=== PATIENT | female | born 1935 | race Caucasian/White ===

== ENCOUNTER → 2018-01-29 11:16 | Outpatient (CLI) | payer MEDICARE, OTHER, SELFPAY ==
--- NOTE | 2018-01-29 | DI.CT.S_ITS ---
PROCEDURE: CT ANGIO CHEST PE PROTOCOL INDICATIONS: CHEST PAIN TECHNIQUE: After the administration of intravenous contrast, 2 mm thick sections acquired from the pulmonary apices to the posterior costophrenic angles. 3-dimensional maximum intensity projection (MIP) coronal and sagittal reformats were then acquired through the thorax. For radiation dose reduction, the following was used: automated exposure control, adjustment of mA and/or kV according to patient size. COMPARISON: None. FINDINGS: Image quality: Excellent. Pulmonary arteries: Pulmonary arteries are normal in size, and demonstrate no intraluminal filling defects to suggest central pulmonary embolism. Lungs and pleura: Lungs are abnormal with a left lower lobe pneumonia pattern, and a very small left lung base pleural effusion.. No pleural effusions or pneumothorax. Central and peripheral airways are patent. Mediastinum: Heart size is normal, without pericardial effusion. No mediastinal or hilar adenopathy but there is mild prominence on the left at the lower hilum of several small nodes likely reactive in this clinical circumstance. Thoracic aorta is normal in caliber and enhancement. Esophagus is normal in caliber, without hiatal hernia. Bones and chest wall: No suspicious bony lesions. Ribs and thoracic spine appear intact throughout. Bilateral breast implants without evidence of implant rupture Thyroid gland demonstrates asymmetric enlargement of the left thyroid gland by presumably an isodense nodule, with estimated dimensions of this mass at approximately 2.5 cm.. No axillary or supraclavicular adenopathy. Abdomen: Visualized upper abdominal solid organs appear normal in the early arterial phase of enhancement. IMPRESSION: No pulmonary embolus seen. Left lower lobe pneumonia with small associated pleural effusion at the left lung base. Asymmetric enlargement of the left thyroid lobe by an estimated 2.5 cm thyroid nodule on the left. Followup by thyroid ultrasound and thyroid nodule biopsy likely is warranted. These findings were discussed in detail Dr. Philippe abdomen staff. Dictated by: Narciso Diehl M.D. on 01/29/2018 at 13:13 Approved by: Narciso Diehl M.D. on 01/29/2018 at 13:16
[2018-01-29 11:48] LABS: Estimated Glomerular Filt Rate > 60.0 mL/min (>60)
== END ==
PROVIDERS: Family Provider Family Medicine; PCP Family Medicine; Visit Provider Family Medicine
DX: R07.81 Pleurodynia (principal); R07.89 Other chest pain; E04.1 Nontoxic single thyroid nodule; J18.9 Pneumonia, unspecified organism
CPT/HCPCS: 36415; 71275; 82565; 84520; Q9967

== ENCOUNTER → 2018-02-26 11:31 | Outpatient (CLI) | payer MEDICARE, OTHER, SELFPAY ==
--- NOTE | 2018-02-26 | DI.RAD.S_ITS ---
PROCEDURE: XR CHEST 2V INDICATIONS: PNEUMONIA TECHNIQUE: 2 views of the chest were acquired. COMPARISON: [facility], , CHEST 1 VIEW, 05/24/2015, 14:00. FINDINGS: Surgical changes and devices: None. Lungs and pleura: No pleural effusions or pneumothorax. Lungs are clear. Mediastinum: Mediastinal contours are normal. Heart size is normal. Aortic calcifications and mild tortuosity. Bones and chest wall: No suspicious bony abnormalities. Thoracic scoliosis and spondylosis. Soft tissues appear unremarkable. IMPRESSION: No acute cardiopulmonary abnormality Dictated by: Jama Belle M.D. on 02/26/2018 at 11:49 Approved by: Jama Belle M.D. on 02/26/2018 at 11:51
== END ==
PROVIDERS: Family Provider Family Medicine; PCP Family Medicine; Visit Provider Family Medicine
DX: J18.9 Pneumonia, unspecified organism (principal)
CPT/HCPCS: 71046

== ENCOUNTER → 2018-03-31 08:44 | Outpatient (CLI) | payer MEDICARE, OTHER, SELFPAY ==
--- NOTE | 2018-03-31 | DI.RAD.S_ITS ---
PROCEDURE: XR HAND LT MIN 3V INDICATIONS: LEFT THUMB AND LEFT HAND PAIN TECHNIQUE: 3 views of the hand(s) acquired. COMPARISON: None. FINDINGS: Bones: Intra-articular mildly displaced fracture through the proximal left first metacarpal. There is a 3 mm area of ossification at the proximal radial aspect of the first MCP joint which may represent a small avulsion fracture or vascular calcification. First CMC joint degenerative change. Soft tissues: No suspicious soft tissue calcifications. IMPRESSION: Proximal left first metacarpal fracture. Soft tissue ossification may represent an avulsion fracture with no identified donor site. Dictated by: Chinmay Butcher M.D. on 03/31/2018 at 9:06 Approved by: Chinmay Butcher M.D. on 03/31/2018 at 9:09
== END ==
PROVIDERS: Family Provider Family Medicine; PCP Family Medicine; Visit Provider Family Medicine
DX: S62.292A Other fracture of first metacarpal bone, left hand, initial encounter for closed fracture (principal); M79.642 Pain in left hand
CPT/HCPCS: 73130

== ENCOUNTER → 2018-12-29 09:33 | Outpatient (CLI) | payer MEDICARE, OTHER, SELFPAY ==
--- NOTE | 2018-12-29 | DI.MRI.S_ITS ---
PROCEDURE: MR HIP LT WO CON INDICATIONS: PRESENCE OF LEFT ARTIFICIAL HIP JOINT TECHNIQUE: Noncontrast coronal T1 spin echo and STIR through the bony pelvis. Coronal and axial T2 fast spin echo with fat saturation, sagittal T1 spin echo, and oblique axial T2 fast spin echo with fat saturation through the hip. COMPARISON: [facility], , [id number] W PEL IF PERFORMED, 07/30/2017, 10:15. FINDINGS: Image quality: Excellent. Bones and joints: Bone marrow of the pelvic ring and proximal femurs show normal signal throughout. There is a mild degree of metal artifact from the bilateral hip arthroplasties immediately adjacent but this includes only the peripheral margin of the arthroplasties present. No intraosseous lesions or fractures. The visualized lower lumbar spine appears normally aligned but there is a moderate degree of degenerative osteoarthritis and disc disease incidentally noted in the small portion of the spine included on this study. Tendons and ligaments: The gluteus medius and minimus tendons appear intact, without associated muscle atrophy. The nearby proximal iliotibial band also appears intact. The iliopsoas tendon appears intact, without adjacent bursal fluid collections or evidence for impingement syndrome. The origin of the hamstring tendon is intact at the ischial tuberosity, as well as the associated sacrotuberous ligament. The straight and reflected heads of the rectus femoris muscle origin appear intact, as well as the conjoint tendon. The ligamentum teres appears intact where visualized. Labrum and cartilage: Not seen in the setting of bilateral hip arthroplasties. Soft tissues: Visualized muscles demonstrate normal bulk and internal signal. Quadratus femoris muscle demonstrates no internal edema to suggest ischiofemoral impingement. The proximal sciatic neurovascular bundle appears normal adjacent to the hamstring tendons. No free pelvic fluid. Bladder wall thickness is normal. Genitourinary structures and bowel loops appear normal where visualized. 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 The operative area of concern is the left hip. No marrow edema is seen, no soft tissue inflammation along the borders of the arthroplasty or nearby is found. Mild to moderate degenerative disc disease and facet osteoarthritis is noted at the lower lumbosacral spine, only a small portion which is included on the study. Overall, therefore, a source of postoperative left hip pain is not seen. Dictated by: Narciso Diehl M.D. on 12/29/2018 at 12:59 Approved by: Narciso Diehl M.D. on 12/29/2018 at 13:03
== END ==
PROVIDERS: PCP Family Medicine; Visit Provider Orthopaedic Surgery
DX: M25.552 Pain in left hip (principal); Z96.643 Presence of artificial hip joint, bilateral; M51.37 Other intervertebral disc degeneration, lumbosacral region; M47.817 Spondylosis without myelopathy or radiculopathy, lumbosacral region
CPT/HCPCS: 73721

== ENCOUNTER 2019-09-17 12:47 | Outpatient (CLI) | payer MEDICARE, OTHER, SELFPAY | END 2019-10-01 13:36 | disposition home or self-care (01) | LOC: PHYS 12:49 | PROVIDERS: PCP Family Medicine; Visit Provider Physical Medicine & Rehabilitation | DX: M25.552 Pain in left hip (principal); G89.29 Other chronic pain; Z96.642 Presence of left artificial hip joint | CPT/HCPCS: 95886; 95909 ==

== ENCOUNTER → 2019-10-09 12:54 | Outpatient (CLI) | payer MEDICARE, OTHER, SELFPAY ==
--- NOTE | 2019-10-09 12:56 | DI.MRI.S_ITS ---
PROCEDURE: MR LUMBAR SPINE WO CON INDICATIONS: L4/5 radic TECHNIQUE: Noncontrast sagittal T1 spin echo and T2 fast echo, sagittal STIR, axial T1 and T2 fast spin echo through the lumbar spine. In cases with scoliosis, additional coronal T2 fast spin echo may be performed. COMPARISON: None. FINDINGS: Image quality: Excellent. Alignment and Curvature: No plain films are available for comparison, for numbering purposes. Thus, for the purposes of this examination, 5 lumbar type vertebral bodies will be presumed, as denoted on the montage panel. This should be confirmed and correlated with plain films, prior to any lumbar spinal intervention. There is mild, grade 1 anterolisthesis of L5 on S1. Mild grade 1 retrolisthesis of T11 on T12 and T12 on L1. Mild diffuse lumbar curvature of the mid lumbar spine. Loss of normal lumbar lordosis. Bone Marrow: Marrow signal is diffusely heterogeneous. Moderate reactive signal within the endplates adjacent to the L1-L2 intervertebral disc. Mild reactive signal adjacent to the remaining endplates of the lumbar and lower thoracic spine. No acute vertebral body compression fractures. Spinal Cord: Conus medullaris terminates at the L2-L3 disc space level. Visualized cord demonstrates normal signal and size. Paraspinous Soft Tissues: No paravertebral masses. 47 mm diameter left superior pole renal cyst. L1-L2: Severe disc height loss and desiccation. Mild diffuse disc bulge. Mild facet and ligamentum flavum upper tibia. Mild canal stenosis. Moderate left and mild right foraminal stenosis. L2-L3: Severe disc height loss and desiccation. Mild diffuse disc bulge/osteophyte. Mild bilateral facet and ligamentum flavum hypertrophy. Mild canal stenosis. Mild left greater than right foraminal stenosis. L3-L4: Severe disc loss and desiccation. Mild diffuse disc bulge. Mild bilateral facet and ligamentum flavum hypertrophy. Mild canal stenosis. Moderate right and mild left foraminal stenosis. L4-L5: Severe disc height loss and desiccation. Moderate diffuse disc bulge. Mild facet and ligamentum flavum hypertrophy. Mild canal stenosis. Moderate subarticular foraminal stenosis bilaterally. L5-S1: Moderate disc height loss and desiccation. Mild diffuse disc bulge. Mild bilateral facet hypertrophy. Mild ligamentum hypertrophy bilaterally. Mild canal stenosis. Moderate subarticular foraminal stenosis bilaterally. IMPRESSION: 1. 5 lumbar type vertebral bodies were presumed for the current report. Plain films of the lumbar spine are recommended for confirmation, prior to any lumbar spinal intervention. 2. Multilevel degenerative disc and facet disease, as well as ligamentum flavum hypertrophy and epidural lipomatosis. 3. Mild multilevel canal stenoses. 4. Multilevel foraminal stenoses, worst at L1-L2, L3-L4, L4-L5, and L5-S1, where there are moderate foraminal stenoses as described above Approved by: Nickolas Frances M.D. on 10/09/2019 at 15:17 .
== END ==
PROVIDERS: PCP Family Medicine; Visit Provider Physical Medicine & Rehabilitation
DX: M51.16 Intervertebral disc disorders with radiculopathy, lumbar region (principal); M51.17 Intervertebral disc disorders with radiculopathy, lumbosacral region; M48.061 Spinal stenosis, lumbar region without neurogenic claudication; M48.07 Spinal stenosis, lumbosacral region; E88.2 Lipomatosis, not elsewhere classified; M43.17 Spondylolisthesis, lumbosacral region; Z96.641 Presence of right artificial hip joint
CPT/HCPCS: 72148

== ENCOUNTER 2019-11-05 10:55 | Outpatient (CLI) | payer MEDICARE, OTHER, SELFPAY ==
[2019-11-05] VITALS (8 sets, daily range): BP systolic 116–142; BP diastolic 59–88; PULSE 68–75; RESP 14–16; TEMP 36.6; O2SAT 95–100
--- NOTE | 2019-11-05 10:56 | DI.RAD.S_ITS ---
PROCEDURE: PAIN L/S TRANSFORAMINAL INJECT INDICATIONS: RADICULOPATHY FINDINGS: Fluoroscopic spot filming was performed to verify placement of spinal needles at the L4-L5 level(s), as labeled on the films. Appropriate location(s) of the needle tip(s) was confirmed by injection of iodinated contrast. Dictated by: Kenneth Leo M.D. on 11/05/2019 at 13:23 Approved by: Kenneth Leo M.D. on 11/05/2019 at 13:27
[2019-11-05] MEDS: MIDAZOLAM 5 MG/5 ML VIAL IV (11:46)
[2019-11-05] MEDS: BUPIVACAINE 0.25% (PF) VIAL 2 ML INJ (11:50)
[2019-11-05] MEDS: DEXAMETHASONE 10 MG/ML VIAL 20 MG INJ (11:50)
[2019-11-05] MEDS: IOPAMIDOL 15 ML VIAL 3 ML INJ (11:50)
--- NOTE | 2019-11-05 11:55 | PC.NURSE ---
ASSISTING PT OFF TABLE AND TRANSPORTING TO POST PROC AREA IN STABLE CONDITION. PASSING RN CARE OF PT OFF TO AB Boggs RN.
--- NOTE | 2019-11-05 12:00 | P.PCN_ITS ---
Procedures Date/Time Date of procedure: 11/05/19 Time of procedure: 12:00 General Procedure description: PREOP DIAGNOSIS 1. FORMAINAL STENOSIS WITH LE SYMPTOMS POST OP DIAGNOSIS 1. FORMAINAL STENOSIS WITH LE SYMPTOMS PROCEDURES 1. FLUOROSCOPICALLY GUIDED CONTRAST CONTROLLED TRANSFORAMINAL EPIDURAL STEROID INJECTION - LEFT L4/5 PHYSICIAN: Michael Vieira DO INDICATIONS: Bri is referred by for treatment of Foraminal Stenosis with Left LE Symptoms FINDINGS Foraminal Nerve Root Compression secondary to disc disease and facet hypertrophy DESCRIPTION OF PROCEDURE: Following review of allergy and review of potential side effects and complications, including, but not necessarily limited to, infection, allergic reaction, local tissue breakdown, stroke, temporary or permanent nerve injury, paralysis, and possible , the patient indicated that the patient understood and agreed to proceed. An informed consent document was signed by the patient, witnessed by a nurse, and placed in the patient's chart. Additionally, other treatment options including medications, modalities, and physical therapy were reviewed with the patient. After review of previous anaesthesic history and IV conscious sedation the heidy ent was deemed safe to proceed with todays procedure with IV conscious sedation as ASA class II designation. Safety time-out was performed to confirm patient ID, procedure to be performed and site of procedure. IV sedation was accomplished with 2mg of Versed administered by the RN after DO order, titrated to patient comfort during the course of the procedure while the patient remained responsive to all verbal commands In the prone position following sterile prep and drape of the lumbar region, the left L4/5 posterior neuroforamen was identified fluoroscopically. The skin was anesthetized via a 25-gauge 1.5-inch needle with 1% lidocaine solution. At this point, a 25-gauge 3.5-inch spinal needle was atraumatically introduced and advanced under fluoroscopic guidance through the posterior left L4/5 neuroforamen to approximately the anterior aspect of the canal. Depth was confirmed on lateral view. Following negative aspiration, injection of approximately 1.5 cc of Isovue 200 under live fluoroscopy in the AP view confirmed excellent flow along the nerve root, into the epidural space without vascular or intrathecal uptake observed Radiological data, including multiple fluoroscopic views of the lumbosacral spine, reveal a spinal needle at the left L4/5 posterior neuroforamen. Subsequent views show flow of contrast material flowing superiorly and inferiorly along the nerve root confirming epidural flow. Subsequently, a test dose of 1.5 cc of 1% lidocaine solution was administered and patient was observed for two minutes for signs or symptoms of complications, including abdominal pain, shortness of breath, bilateral upper or lower extremity weakness, nausea and vomiting, prior to steroid injection. At this point, a total of 3cc or 20mg of dexamethasone and 6mg of betamethasone was injected without incident. The procedure tolerated the procedure well without signs or symptoms of complications prior to transfer to the recovery area continued monitoring withou t incident. The patient was then transferred to the recovery area where they were observed for an appropriate time after the injection. The patient reported a VAS score of 5 prior to the procedure and a post- procedure VAS of 0. Total Fluoroscopy Time: 7 seconds Total Conscious Sedation Time: 24min POST OP INSTRUCTIONS The patient was provided a Pain Log to continue to record their response to the target-specific procedure prior to follow-up visit with their referring physician. Additionally, specific post-injection care instructions and a contact number to our office were provided if concerns arise regarding possible complications associated with the procedure are suspected. Michael Vieira DO Complications: none
--- NOTE | 2019-11-05 12:14 | PC.NURSE ---
Patient arrived via w/c accompanied by Rose at 1205 from procedure, standby assist to chair without problems, given water and cookies, denies pain
[2019-11-05] MEDS: BETAMETHASONE 30 MG/5 ML MDV 6 MG INJ (15:43)
--- NOTE | 2019-11-05 15:44 | PC.NURSE ---
ALL MEDS SCANNED LATE DUE TO PROCEDURE BEING DONE BEFORE MEDS ORDERED BY DR NEGRETE. 2MG VERSED ADMINISTERED BY THIS RN AT 1146. ALL OTHER MEDICATIONS PREPARED AND ADMINISTERED BY DR NEGRETE. NO ADVERSE REACTIONS NOTED.
== END 2019-11-05 12:30 | disposition home or self-care (01) ==
LOC: RAD 10:56
PROVIDERS: PCP Family Medicine; Referring Provider Family Medicine; Visit Provider Physical Medicine & Rehabilitation
DX: M48.061 Spinal stenosis, lumbar region without neurogenic claudication (principal); M51.16 Intervertebral disc disorders with radiculopathy, lumbar region
CPT/HCPCS: 64483; 99152; J0702; J1100; J2250; J3010

== ENCOUNTER 2021-01-07 20:15 | Observation (INO) | payer MEDICARE, OTHER, SELFPAY ==
[2021-01-07] VITALS (7 sets, daily range): BP systolic 105–174; BP diastolic 60–85; PULSE 76–82; RESP 18–24; TEMP 36.5; O2SAT 97–98; BMI 24.0
--- NOTE | 2021-01-07 20:17 | DI.CT.S_ITS ---
PROCEDURE: CT STROKE INDICATIONS: aphasia TECHNIQUE: Noncontrast 4.5 mm thick angled axial sections acquired from the foramen magnum to the vertex, with coronal reformats. For radiation dose reduction, the following was used: automated exposure control, adjustment of mA and/or kV according to patient size. COMPARISON: None. FINDINGS: Image quality: Excellent. CSF spaces: Basal cisterns are patent. No extra-axial fluid collections. The ventricles are symmetric in size and shape. Brain: No intracranial bleeds or masses. There is cerebral volume loss for age, with resultant ventricular and sulcal prominence. There are periventricular and deep white matter chronic small vessel ischemic changes, relatively prominent. 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 There are basal gangliar calcifications bilaterally symmetric. There is intracranial internal carotid artery atherosclerosis. Skull and face: Calvarium and visualized facial bones appear intact, without suspicious lesions. Sinuses: Visualized sinuses and mastoids are clear. IMPRESSION: No definite contraindication to tPA administration from this study. Prominent microvascular atherosclerotic change in the deep white matter of each hemisphere is present, also concordant with advanced age. Basal gangliar calcification appears dystrophic. Two small sub insular cortex deep white matter lacunar infarctions incidentally noted. Findings immediately called to and discussed with the emergency room physician caring for the patient at 8:30 p.m. This study fulfills neurological imaging criteria for inclusion or exclusion of acute stroke therapies based on available published neurological guidelines. Dictated by: Narciso Diehl M.D. on 01/07/2021 at 20:28 Approved by: Narciso Diehl M.D. on 01/07/2021 at 20:32
--- NOTE | 2021-01-07 20:17 | DI.RAD.S_ITS ---
PROCEDURE: XR CHEST 1V INDICATIONS: Possible stroke TECHNIQUE: One view of the chest was acquired. COMPARISON: [facility], , XR CHEST 2V, 02/26/2018, 11:15. [facility], , CHEST 1 VIEW, 05/24/2015, 14:00. FINDINGS: Surgical changes and devices: None. Lungs and pleura: Lungs are clear. No pleural effusions or pneumothorax. Mediastinum: Mediastinal contours appear normal. Heart size is normal. Bones and chest wall: No suspicious bony lesions. Overlying soft tissues appear unremarkable. IMPRESSION: Reduced inspiratory volume, no definite acute disease. Dictated by: Narciso Diehl M.D. on 01/07/2021 at 21:08 Approved by: Narciso Diehl M.D. on 01/07/2021 at 21:08
--- NOTE | 2021-01-07 20:18 | DI.CT.S_ITS ---
PROCEDURE: CT ANGIO HEAD AND NECK INDICATIONS: aphasia TECHNIQUE: After the administration of intravenous contrast, 1 mm thick sections acquired from the aortic arch through the [place]. Post-contrast 4.5 mm thick sections then re-acquired from the foramen magnum to the vertex. 3-dimensional dscjzhl-bmcjqmmau-fqfwxpkoan (MIP) and/or volume rendering reformats were acquired of the central intracranial vasculature and neck separately. COMPARISON: None. FINDINGS: Image quality: Excellent. BRAIN: CSF spaces: Ventricles are mildly enlarged in size and shape as expected for advanced age and moderately severe microvascular atherosclerotic change in the deep white matter of each hemisphere. Basal cisterns are patent. No extra-axial fluid collections. Brain: No midline shift. No intracranial bleeds or masses. [place]-white matter interface appears intact. Skull and face: Calvarium and facial bones appear intact, without suspicious lesions. Orbits appear normal. Sinuses: Sinuses and mastoids are clear. HEAD CT ANGIOGRAPHY: Anterior circulation: Intracranial internal carotid arteries are normal in size and flow. The flow within the paired anterior cerebral arteries is normal and symmetric. The flow within the middle cerebral arteries is normal and symmetric. The anterior communicating artery is seen. No aneurysms are seen. Posterior circulation: Visualized portions of the vertebral arteries demonstrate normal caliber, and join to form a normal appearing basilar artery. Flow within the posterior cerebral arteries is normal and symmetric. No aneurysms are seen. NECK CT ANGIOGRAPHY: Carotid system: The great vessels demonstrate a conventional anatomy as they arise from the aortic arch. The origins of the common carotid arteries appear patent. The common carotid arteries demonstrate normal caliber and courses. The bifurcation regions are both widely patent. The internal carotid arteries demonstrate normal calibers and courses. Posterior circulation: The origins of the vertebral arteries both appear widely patent. The more superior extracranial portions of both vertebral arteries also demonstrate normal courses and calibers. They join to form a normal appearing basilar artery. Soft tissues: Visualized neck soft tissues demonstrate no suspicious abnormalities. Note is made of what appears to be a left-sided thyroid nodule, measuring up to 1.5 x 1.7 cm. Bones: No suspicious bony lesions. Visualized cervical spine appears normally aligned. IMPRESSION: Incidental note is made of a moderate-sized left thyroid nodule measuring 1.5 x 1.7 cm. There is no sign of embolic disease or arterial thrombosis within the cervical arterial structures and the intracranial arterial arcade. Through the brain parenchyma no mass is found. Moderate microvascular atherosclerotic change is present, with mild to moderate brain parenchymal atrophy. A source of current symptomatology is not found. Any quantitative measurements of stenosis were performed using NASCET criteria. Dictated by: Narciso Diehl M.D. on 01/07/2021 at 21:45 Approved by: Narciso Diehl M.D. on 01/07/2021 at 21:48
--- NOTE | 2021-01-07 20:52 | ED.NEUROSD ---
HPI - Neuro Symptoms/Deficit General Chief Complaint: Neuro Symptoms/Deficit Stated Complaint: Possible Stroke Time Seen by Provider: 01/07/21 20:28 Source: patient, family and EMS Limitations: no limitations History of Present Illness HPI Narrative: Patient is an 85-year-old female who presents as a code stroke with last known well at 1830.. She was on the phone with her daughter when she was suddenly unable and to come up with the right words talking gibberish. 911 was called however she did not arrive to this facility in till 2029. Symptoms seem to be waxing and waning according to medics. She has no weakness facial droop or loss of vision. No prior history of stroke but is taking aspirin daily. Related Data Home Medications Medication Instructions Recorded Confirmed VITAMIN C - 1,000 mg PO #0 08/03/06 01/18/20 (VITAMIN C) [CALCIUM WITH D] Q DAY #0 08/03/06 01/18/20 [ISTALOL] #0 08/03/06 01/18/20 [MOVE FREE WITH GLUCO] #0 08/03/06 01/18/20 ascorbate calcium (vitamin C) 500 500 mg PO DAILY 08/17/19 01/07/21 mg tablet aspirin 81 mg chewable tablet 81 mg PO DAILY 08/17/19 01/07/21 atorvastatin 80 mg tablet 80 mg PO DAILY 08/17/19 01/07/21 calcium carbonate 600 mg calcium 600 mg PO DAILY 08/17/19 01/07/21 (1,500 mg) tablet cholecalciferol (vitamin D3) 25 2,000 unit PO DAILY cap 08/17/19 01/07/21 mcg (1,000 unit) capsule esomeprazole magnesium 40 mg 40 mg PO DAILY 08/17/19 01/07/21 capsule,delayed release folic acid 400 mcg tablet 0.4 mg PO DAILY 08/17/19 01/07/21 glucosamine HCl 500 mg tablet 1,000 mg PO DAILY tab 08/17/19 01/07/21 latanoprost 0.005 % eye drops 1 drp EYE-BOTH BEDTIME 08/17/19 01/07/21 mecobalamin (vitamin B12) 1,000 1,000 mcg SL DAILY 08/17/19 01/07/21 mcg disintegrating tablet,sublingual meloxicam 15 mg tablet 15 mg PO DAILY 08/17/19 01/07/21 metoprolol tartrate 50 mg tablet 50 mg PO DAILY 08/17/19 01/07/21 multivitamin 1 tab PO DAILY 08/17/19 01/07/21 nitroglycerin 0.4 mg sublingual 0.4 mg SL Q5M PRN 08/17/19 01/07/21 tablet omega-3 fatty acids 1,000 mg 1,000 mg PO DAILY 08/17/19 01/07/21 capsule pyridoxine (vitamin B6) 100 mg 100 mg PO DAILY tab 08/17/19 01/07/21 tablet Allergies Allergy/AdvReac Type Severity Reaction Status Date / Time No Known Allergies Allergy Unknown Verified 01/07/21 21:34 [NO KNOWN ALLERGIES] Review of Systems Review of Systems Narrative: GENERAL: Denies chills, fatigue, malaise, fever, sweats, travel HEENT: Denies sinus pain, ear pain, sore throat, difficulty swallowing, neck pain RESPIRATORY: Denies dyspnea, cough, wheezing, hemoptysis, sputum. CARDIOVASCULAR: Denies chest pain, palpitations, orthopnea, edema GASTROINTESTINAL: Denies nausea, vomiting, abdominal pain, diarrhea, constipation, melena. : Denies dysuria, frequency, incontinence, hematuria, urinary retention, flank pain. MUSCULOSKELETAL: Denies weakness, joint pain, or bony pain SKIN: No rash, no erythema, no pruritus NEUROLOGIC: See HPI PSYCHIATRIC: No concerning psychosocial issues. 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 HEENT: Head atraumatic,EOMI, pupils reactive, face symmetric, moist mucous membranes CARDIOVASCULAR: Regular rate and rhythm without murmurs, rubs or gallops. RESPIRATORY: Breath sounds equal bilaterally, no wheezes rales or rhonchi. ABDOMEN: Soft, nontender. Normoactive bowel sounds all 4 quadrants. No guarding or rebound. EXTREMITIES: Normal range of motion, no clubbing or edema. Neurovascularly intact NEUROLOGICAL: Alert and oriented x4.Normal gait and speech. Cranial nerves II through XII grossly intact. Good [id number], good aija-pl-yngf, strength equal bilaterally, mild dysarthria or aphasia, sensation in tact to soft touch bilaterally, no visual changes, no facial droop SKIN: Warm, dry, no laceration, no petechiae, no rashes or lesions. Scores NIH Stroke Scale Level of Conciousness: Alert, keenly responsive Ask month/age: Answers both questions correctly. Open/close eyes, close hand: Performs both tasks correctly Best gaze horizontal: Normal Visual raanda: No visual loss Facial palsy: Normal symetrical movement Left arm drift: No drift for full 10 sec Right arm drift: No drift for full 10 sec Left leg drift: No drift for full 5 sec Right leg drift: No drift for full 5 sec Limb ataxia: Absent Sensory on face/arms/legs: Normal, no sensory loss Best language: No aphasia, normal Dysarthria: Mild to mod,some slurring Extinction or inattention: No abnormality Total NIH Stroke scale score: 1 Course Orders Ordered: ED Orders 01/07/21 20:17 CT Stroke Stat XR chest 1V Stat EKG-12 Lead Stat 01/07/21 20:18 CT angio head and neck Stat 01/07/21 20:42 Complete Blood Count AUTO DIFF Stat Comprehensive Metabolic Panel Stat Partial Thromboplastin Time Stat Prothrombin Time INR Stat Troponin & CK Cardiac Panel Stat 01/07/21 21:40 COVID19 - ADMIT ([facility] swab/PCR) Stat 01/07/21 21:43 Urinalysis and Microscopic Stat Urine Culture Stat Urine Drug Screen, Rapid Stat Acetaminophen (Acetaminophen 325 Mg Tablet) 650 mg PO Q6HR PRN PRN Reason: Fever Al Hydrox/Mg Hydrox/Simethicone (Mag Hydrox/Alum/Simeth 30 Ml Udc) 30 ml PO Q6HR PRN PRN Reason: Dyspepsia Aspirin (Aspirin 81 Mg Chew Tab) 81 mg PO DAILY [facility] Atorvastatin Calcium (Atorvastatin 20 Mg Tablet) 80 mg PO DAILY [facility] Calcium Carbonate (Calcium Carbonate 600 Mg Tablet) 600 mg PO DAILY [facility] Clopidogrel Bisulfate (Clopidogrel 75 Mg Tablet) 75 mg PO DAILY [facility] Cyanocobalamin (Cyanocobalamin (Vitamin B-12) 500 Mcg Tablet) 1,000 mcg PO DAILY [facility] Fish Oil (Fish Oil 1,000 Mg Capsule) 1,000 mg PO DAILY [facility] Folic Acid (Folic Acid 0.4 Mg Tablet) 0.4 mg PO DAILY [facility] Ceftriaxone Sodium/Dextrose (Rocephin) 2 gm in 50 mls @ 100 mls/hr IV Q24H KLEBER Last Infusion: 01/08/21 01:22 Dose: 0 mls/hr Documented by: Admin: 01/08/21 00:39 Dose: 100 mls/hr Documented by: VALENTE Sodium Chloride (Normal Saline 0.9%) 250 mls @ 21 mls/hr IV Q24H PRN PRN Reason: Flush Last Admin: 01/08/21 00:39 Dose: 21 mls/hr Documented by: VALENTE Latanoprost (Latanoprost 0.005% Ophth 2.5 Ml) 1 drops EYE-BOTH BEDTIME [facility] Last Admin: 01/07/21 23:58 Dose: Not Given Documented by: VALENTE Magnesium Hydroxide (Magnesium Hydroxide 30 Ml Udc) 30 ml PO DAILY PRN PRN Reason: Constipation Meloxicam (Meloxicam 7.5 Mg Tablet) 15 mg PO DAILY [facility] Metoprolol Tartrate (Metoprolol Ir 50 Mg Tablet) 50 mg PO DAILY [facility] Multivitamins (Multivitamin 1 Tablet) 1 tab PO DAILY [facility] Nitroglycerin (Nitroglycerin 0.4 Mg Sl Tab) 0.4 mg SL Q5M PRN PRN Reason: Chest Pain Ondansetron HCl (Ondansetron 4 Mg/2 Ml Inj) 4 mg IV Q8HR PRN PRN Reason: Nausea And Vomiting Pantoprazole Sodium (Pantoprazole Dr 40 Mg Tablet) 40 mg PO DAILY [facility] Pyridoxine HCl (Pyridoxine (Vitamin B6) 50 Mg Tablet) 100 mg PO DAILY [facility] Sodium Chloride (Sodium Chloride 0.9% Flush) 10 ml IV PRN PRN PRN Reason: Flush Last Admin: 01/08/21 00:39 Dose: 10 ml Documented by: VALENTE Sodium Chloride (Sodium Chloride 0.9% Flush) 10 ml IV BID [facility] Vitamin D (Cholecalciferol (Vitamin D3) 1,000 Unit Tablet) 2,000 unit PO DAILY [facility] Discontinued Medications Clopidogrel Bisulfate (Clopidogrel 75 Mg Tablet) 600 mg PO NOW ONE Stop: 01/07/21 21:39 Last Admin: 01/07/21 21:53 Dose: 300 mg Documented by: JAN Vital Signs Vital signs: Vital Signs - 8 hr 01/07/21 20:17 01/07/21 21:00 01/07/21 21:13 Temperature 97.7 F Pulse Rate 76 78 82 Respiratory Rate 18 22 23 Blood Pressure 151/83 H 146/80 H 161/85 H Pulse Oximetry 97 98 97 01/07/21 21:30 01/07/21 21:51 01/07/21 22:00 Temperature Pulse Rate 77 80 79 Respiratory Rate 24 19 22 Blood Pressure 146/73 H 174/80 H 156/72 H Pulse Oximetry 97 98 MDM - Neuro Symptoms/Deficit Lab Data Attestation: I reviewed the patient's lab results. Result diagrams: 01/07/21 20:42 01/07/21 20:42 Labs: Lab Results 01/07/21 01/07/21 01/07/21 Range/Units 20:42 20:42 20:42 WBC 5.9 (4.5-11.0) X10^3/uL RBC 4.00 (4.0-5.2) X10^6/uL Hgb 13.0 (12.0-16.0) g/dL Hct 37.5 (36-46) % MCV 93.8 (80-100) fL MCH 32.6 (26-34) PG MCHC 34.7 (30-36) % RDW 13.3 (11.6-14.8) % Plt Count 162 (150-400) X10^3/uL Neut % (Auto) 47.8 L (50-75) % Lymph % (Auto) 42.5 H (25-40) % Gillespie % (Auto) 7.0 (3-14) % Eos % (Auto) 2.0 (2-4) % Baso % (Auto) 0.7 (0-2) % Neut # (Auto) 2800 (1689-9310) /uL Lymph # (Auto) 2500 (0446-7876) /uL Gillespie # (Auto) 400 (0-900) /uL Eos # (Auto) 100 (0-450) /uL Baso # (Auto) 0 (0-100) /uL PT 11.6 (10.1-12.7) SECONDS INR 1.0 (0.9-1.3) APTT 36 (26.4-36.2) SECONDS Sodium 136 L (137-145) mmol/L Potassium 4.1 (3.4-5.1) mmol/L Chloride 103 (98-107) mmol/L Carbon Dioxide 26 (22-32) mmol/L BUN 21 H (7-17) mg/dL Creatinine 0.50 L (0.52-1.04) mg/dL Estimated GFR > 60.0 (>60) mL/min BUN/Creatinine Ratio 42.0 H (6-22) Glucose 101 (80-110) mg/dL Calcium 9.2 (8.4-10.2) mg/dL Total Bilirubin 0.7 (0.2-1.3) mg/dL AST 22 (14-36) IU/L ALT 14 (<35) IU/L Alkaline Phosphatase 55 (38-126) U/L Total Creatine Kinase 41 (30-135) U/L CK-MB (CK-2) TNP CK-MB (CK-2) Rel Index TNP Troponin I < 0.012 (0.01-0.034) ng/mL Total Protein 6.1 L (6.3-8.2) g/dL Albumin 3.6 (3.5-5.0) g/dL Globulin 2.5 (1.7-4.1) g/dL Albumin/Globulin Ratio 1.4 (1.0-2.8) Urine Color Urine Appearance Urine pH (4.5-8.0) Ur Specific Art[place]us (1.000-1.035) Urine Protein (Negative) Urine Glucose (UA) (Negative) g/dL Urine Ketones (NEGATIVE) Urine Occult Blood (Negative) Urine Nitrate (Negative) Urine Bilirubin (NEGATIVE) Urine Urobilinogen (0.2) E.U./dL Ur Leukocyte Esterase (NEGATIVE) Urine RBC (0-5/HPF) Urine WBC (0-5/HPF) Ur Squamous Epith Cells (0-5/HPF) Urine Bacteria (None) Ur Culture Indicated? U Opiates 300ng/mL cut (Negative) Ur Oxycodone Screen (Negative) Urine Methadone Screen (Negative) Ur Barbiturates Screen (Negative) U Tricyclic Antidepress (Negative) Ur Phencyclidine Scrn (Negative) Ur Amphetamines Screen (Negative) U Methamphetamines Scrn (Negative) Ur MDMA Scrn (Ecstasy) (Negative) U Benzodiazepines Scrn (Negative) Urine Cocaine Screen (Negative) U Marijuana (THC) Screen (Negative) SARS-CoV-2 (PCR) (Negative) 01/07/21 01/07/21 01/07/21 Range/Units 21:40 21:43 21:43 WBC (4.5-11.0) X10^3/uL RBC (4.0-5.2) X10^6/uL Hgb (12.0-16.0) g/dL Hct (36-46) % MCV (80-100) fL MCH (26-34) PG MCHC (30-36) % RDW (11.6-14.8) % Plt Count (150-400) X10^3/uL Neut % (Auto) (50-75) % Lymph % (Auto) (25-40) % Gillespie % (Auto) (3-14) % Eos % (Auto) (2-4) % Baso % (Auto) (0-2) % Neut # (Auto) (9154-5734) /uL Lymph # (Auto) (3059-9364) /uL Gillespie # (Auto) (0-900) /uL Eos # (Auto) (0-450) /uL Baso # (Auto) (0-100) /uL PT (10.1-12.7) SECONDS INR (0.9-1.3) APTT (26.4-36.2) SECONDS Sodium (137-145) mmol/L Potassium (3.4-5.1) mmol/L Chloride (98-107) mmol/L Carbon Dioxide (22-32) mmol/L BUN (7-17) mg/dL Creatinine (0.52-1.04) mg/dL Estimated GFR (>60) mL/min BUN/Creatinine Ratio (6-22) Glucose (80-110) mg/dL Calcium (8.4-10.2) mg/dL Total Bilirubin (0.2-1.3) mg/dL AST (14-36) IU/L ALT (<35) IU/L Alkaline Phosphatase (38-126) U/L Total Creatine Kinase (30-135) U/L CK-MB (CK-2) CK-MB (CK-2) Rel Index Troponin I (0.01-0.034) ng/mL Total Protein (6.3-8.2) g/dL Albumin (3.5-5.0) g/dL Globulin (1.7-4.1) g/dL Albumin/Globulin Ratio (1.0-2.8) Urine Color Yellow Urine Appearance Clear Urine pH 7.0 (4.5-8.0) Ur Specific Artemus <=1.005 (1.000-1.035) Urine Protein Negative (Negative) Urine Glucose (UA) Negative (Negative) g/dL Urine Ketones Trace H (NEGATIVE) Urine Occult Blood Negative (Negative) Urine Nitrate Positive H (Negative) Urine Bilirubin Negative (NEGATIVE) Urine Urobilinogen 0.2 (0.2) E.U./dL Ur Leukocyte Esterase Trace H (NEGATIVE) Urine RBC None seen (0-5/HPF) Urine WBC 10-30/hpf H (0-5/HPF) Ur Squamous Epith Cells 1-5 /hpf (0-5/HPF) Urine Bacteria Many (>30) H (None) Ur Culture Indicated? Specimen cultured U Opiates 300ng/mL cut Negative (Negative) Ur Oxycodone Screen Negative (Negative) Urine Methadone Screen Negative (Negative) Ur Barbiturates Screen Negative (Negative) U Tricyclic Antidepress Negative (Negative) Ur Phencyclidine Scrn Negative (Negative) Ur Amphetamines Screen Negative (Negative) U Methamphetamines Scrn Negative (Negative) Ur MDMA Scrn (Ecstasy) Negative (Negative) U Benzodiazepines Scrn Negative (Negative) Urine Cocaine Screen Negative (Negative) U Marijuana (THC) Screen Negative (Negative) SARS-CoV-2 (PCR) Negative (Negative) Point of Care Testing Glucose POC [address] scan - head: Radiologist's Impression: PROCEDURE: CT STROKE INDICATIONS: aphasia TECHNIQUE: Noncontrast 4.5 mm thick angled axial sections acquired from the foramen magnum to the vertex, with coronal reformats. For radiation dose reduction, the following was used: automated exposure control, adjustment of mA and/or kV according to patient size. COMPARISON: None. FINDINGS: Image quality: Excellent. CSF spaces: Basal cisterns are patent. No extra-axial fluid collections. The ventricles are symmetric in size and shape. Brain: No intracranial bleeds or masses. There is cerebral volume loss for age, with resultant ventricular and sulcal prominence. There are periventricular and deep white matter chronic small vessel ischemic changes, relatively prominent. 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 There are basal gangliar calcifications bilaterally symmetric. There is intracranial internal carotid artery atherosclerosis. Skull and face: Calvarium and visualized facial bones appear intact, without suspicious lesions. Sinuses: Visualized sinuses and mastoids are clear. IMPRESSION: No definite contraindication to tPA administration from this study. Prominent microvascular atherosclerotic change in the deep white matter of each hemisphere is present, also concordant with advanced age. Basal gangliar calcification appears dystrophic. Two small sub insular cortex deep white matter lacunar infarctions incidentally noted. Findings immediately called to and discussed with the emergency room physician caring for the patient at 8:30 p.m. This study fulfills neurological imaging criteria for inclusion or exclusion of acute stroke therapies based on available published neurological guidelines. Dictated by: Narciso Diehl M.D. on 01/07/2021 at 20:28 Approved by: Narciso Diehl M.D. on 01/07/2021 at 20:32 CTA - brain/neck: Radiologist's Impression: PROCEDURE: CT STROKE INDICATIONS: aphasia TECHNIQUE: Noncontrast 4.5 mm thick angled axial sections acquired from the foramen magnum to the vertex, with coronal reformats. For radiation dose reduction, the following was used: automated exposure control, adjustment of mA and/or kV according to patient size. COMPARISON: None. FINDINGS: Image quality: Excellent. CSF spaces: Basal cisterns are patent. No extra-axial fluid collections. The ventricles are symmetric in size and shape. Brain: No intracranial bleeds or masses. There is cerebral volume loss for age, with resultant ventricular and sulcal prominence. There are periventricular and deep white matter chronic small vessel ischemic changes, relatively prominent. 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 There are basal gangliar calcifications bilaterally symmetric. There is intracranial internal carotid artery atherosclerosis. Skull and face: Calvarium and visualized facial bones appear intact, without suspicious lesions. Sinuses: Visualized sinuses and mastoids are clear. IMPRESSION: No definite contraindication to tPA administration from this study. Prominent microvascular atherosclerotic change in the deep white matter of each hemisphere is present, also concordant with advanced age. Basal gangliar calcification appears dystrophic. Two small sub insular cortex deep white matter lacunar infarctions incidentally noted. Findings immediately called to and discussed with the emergency room physician caring for the patient at 8:30 p.m. This study fulfills neurological imaging criteria for inclusion or exclusion of acute stroke therapies based on available published neurological guidelines. Dictated by: Narciso Diehl M.D. on 01/07/2021 at 20:28 Approved by: Narciso Diehl M.D. on 01/07/2021 at 20:32 Chest x-ray: Radiologist's Impression: PROCEDURE: XR CHEST 1V INDICATIONS: Possible stroke TECHNIQUE: One view of the chest was acquired. COMPARISON: [facility], , XR CHEST 2V, 02/26/2018, 11:15. [facility], CHEST 1 VIEW, 05/24/2015, 14:00. FINDINGS: Surgical changes and devices: None. Lungs and pleura: Lungs are clear. No pleural effusions or pneumothorax. Mediastinum: Mediastinal contours appear normal. Heart size is normal. Bones and chest wall: No suspicious bony lesions. Overlying soft tissues appear unremarkable. IMPRESSION: Reduced inspiratory volume, no definite acute disease. Dictated by: Narciso Diehl M.D. on 01/07/2021 at 21:08 ECG Data Attestation: I personally reviewed and interpreted this ECG as follows: Prior ECG tracings: available for review Interpretation: Normal sinus rhythm rate 75 p.r. interval 156 your the [address] changes or T-wave inversions MDM Narrative Medical decision making narrative: Tele stroke Dr. Pitts immediately called after noncontrast head CT is negative. He evaluated patient himself. At this time patient is not a candidate for tPA last known well is actually last evening she has had some fluctuating symptoms throughout the day. There is no large vessel occlusion seen on the CT angio is. At this time recommends loading with Plavix of 300 mg and continuing on with 75 mg once daily for 1 month along with continuing aspirin. He recommends admitting with continued stroke workup including MRI and echocardiogram. Dr. Ashraf updated on patient's symptoms Neurology recommendations and happily accepted Stroke Core Measures Exclusion Criteria TPA in CVA: Symptom Onset >3 or 4.5 Hours Discharge Plan Departure Patient Disposition: Admitted As Inpatient Clinical Impression: CVA (cerebral vascular accident) Qualifiers: CVA mechanism: other Qualified Code(s): I63.89 - Other cerebral infarction Admit Date/Time: 01/07/21 22:09 Admit Provider: Nusrat Ashraf
[2021-01-07 21:04] LABS: Add Manual Diff / Slide Review NO; Basophils Absolute Auto 0 /uL (0-100); Basophils Percent Auto 0.7 % (0-2); Eosinophils Absolute Auto 100 /uL (0-450); Hematocrit 37.5 % (36-46); Lymphocytes Absolute Auto 2500 /uL (1100-4500); Lymphocytes Percent Auto 42.5 % (25-40); Mean Corpuscular HGB Conc 34.7 % (30-36); Mean Corpuscular Hemoglobin 32.6 PG (26-34); Mean Corpuscular Volume 93.8 fL (80-100); Monocytes Absolute Auto 400 /uL (0-900); Neutrophils Absolute Auto 2800 /uL (1500-7000); Neutrophils Percent Auto 47.8 % (50-75); Platelet Count 162 X10^3/uL (150-400); Red Cell Distribution Width 13.3 % (11.6-14.8); White Blood Cell Count 5.9 X10^3/uL (4.5-11.0)
[2021-01-07 21:12] LABS: Prothrombin Time 11.6 SECONDS (10.1-12.7)
[2021-01-07 21:15] LABS: PTT Partial Thromboplastin Tim 36 SECONDS (26.4-36.2)
[2021-01-07 21:20] LABS: Alanine Aminotransferase 14 IU/L (<35); Albumin 3.6 g/dL (3.5-5.0); Albumin Globulin Ratio 1.4 (1.0-2.8); Alkaline Phosphatase 55 U/L (38-126); Aspartate Aminotransferase 22 IU/L (14-36); Bilirubin Total 0.7 mg/dL (0.2-1.3); Blood Urea Nitrogen 21 mg/dL (7-17); Calcium 9.2 mg/dL (8.4-10.2); Carbon Dioxide 26 mmol/L (22-32); Chloride 103 mmol/L (98-107); Creatine Kinase 41 U/L (30-135); Estimated Glomerular Filt Rate > 60.0 mL/min (>60); Globulin 2.5 g/dL (1.7-4.1); Glucose 101 mg/dL (80-110); HEMOLYSIS 18 (0-50); Potassium 4.1 mmol/L (3.4-5.1); Sodium 136 mmol/L (137-145); Total Protein 6.1 g/dL (6.3-8.2)
[2021-01-07 21:30] LABS: Troponin I < 0.012 ng/mL (0.01-0.034)
[2021-01-07] MEDS: CLOPIDOGREL 75 MG TABLET 600 MG PO (21:53)
[2021-01-07 21:55] LABS: RBC Urine None Seen (0-5/HPF)
[2021-01-07 22:00] LABS: Appearance Urine UA CLEAR; Bilirubin Urine UA NEGATIVE (NEGATIVE); Color Urine UA YELLOW; Glucose Urine UA NEGATIVE (Negative); Ketones Urine UA TRACE (NEGATIVE); Leukocyte Esterase Urine UA TRACE (NEGATIVE); Nitrite Urine UA POSITIVE (Negative); Occult Blood Urine UA NEGATIVE (Negative); Protein Urine UA NEGATIVE (Negative); Specific Gravity Urine UA <=1.005 (1.000-1.035); Urobilinogen Urine UA 0.2 E.U./dL (0.2)
[2021-01-07 22:04] LABS: UR Morphine/Opiate cutoff 300 Negative (Negative); Ur Creatinine Normal (Normal); Ur Specific Gravity Normal (Normal); Urine Amphetamines Negative (Negative); Urine Barbiturates Negative (Negative); Urine Benzodiazepines Negative (Negative); Urine Cocaine Negative (Negative); Urine MDMA Negative (Negative); Urine Methadone Negative (Negative); Urine Methamphetamines Negative (Negative); Urine Oxycodone Negative (Negative); Urine Phencyclidine Negative (Negative); Urine Tetrahydrocannabinol Negative (Negative); Urine Tricyclic Antidepressant Negative (Negative); Urine pH Normal (Normal)
[2021-01-07 22:07] LABS: Squamous Epithelial Cell Urine 1-5 /HPF (0-5/HPF); WBC Urine 10-30/HPF (0-5/HPF)
[2021-01-07 22:08] LABS: Bacteria Urine Many (>30); Culture Indicated Urine Specimen Cultured
[2021-01-07 22:36] LABS: COVID19 - ADMIT (NP swab/PCR) Negative (Negative)
--- NOTE | 2021-01-07 23:18 | DI.MRI.S_ITS ---
PROCEDURE: MR STROKE Pre- and post-contrast brain MRI, non-contrast and post-contrast brain MR angiogram, pre- and postcontrast neck MR angiogram INDICATIONS: aphasia, r/o CVA TECHNIQUE: Brain: Noncontrast axial T1 spin echo, axial T2 fast spin echo, sagittal and axial FLAIR, coronal T2 fast spin echo, axial gradient echo, axial diffusion and ADC through the brain. After the administration of contrast, axial 3D VIBE of the cranial vasculature and brain. Brain MRA: Non-contrast 3-D time of flight MR angiogram, with multiple lwgbxsb-roxwbekqo-cuzanrqnux (MIP) reformats performed. Additional post contrast MPR MRA is performed. Neck MRA: Axial and sagittal TruFISP through the neck. Coronal dynamic MR angiogram during administration of contrast in the arterial and venous phases, with 3-dimenstional ksarfge-wgkydxzzb-ovnjjdvzqg (MIP) reformats constructed from subtraction images. COMPARISON: [facility], CT, CT ANGIO HEAD AND NECK, 01/07/2021, 20:24. FINDINGS: Image quality: Excellent. BRAIN: CSF spaces: Ventricles and extra-axial CSF spaces are prominent consistent with age-related atrophy. There is no focal extra-axial fluid collection. Brain: No intracranial bleeds or mass effects. There is diffuse periventricular and deep white matter T2/FLAIR hyper attenuation most consistent with microvascular ischemic changes. Woods-white matter interface is normal. Diffusion weighted images show no acute ischemic insults. Brainstem appears normal. Normal intravascular flow voids are present. No abnormal intracranial enhancement. Susceptibility artifact within the basal ganglia bilaterally consistent calcifications. No evidence of remote microhemorrhage. Skull and face: Calvarial marrow signal is normal. Orbits appear normal. Sinuses: Minimal right frontal and anterior ethmoidal air cell mucosal thickening. No air-fluid levels. BRAIN MR ANGIOGRAM: Anterior circulation: Intracranial internal carotid arteries are normal in size and enhancement. The flow within the paired anterior cerebral arteries is normal and symmetric. The flow within the middle cerebral arteries is normal and symmetric. The anterior communicating artery is seen. Incidental note of absence of the left A1 segment, a normal variant. No stenoses, occlusions, or aneurysms. There is questionable stenosis of the proximal MCA vessels on the nola-jw-byslzr imaging which is favored to be artifactual given normal appearance on post-contrast MRA and on recent CTA. Posterior circulation: The visualized portions of the vertebral arteries demonstrate normal caliber, and join to form a normal appearing basilar artery. The flow within the posterior cerebral arteries is normal and symmetric. No stenoses, occlusions, or aneurysms. NECK MR ANGIOGRAM: Carotids: Great vessels demonstrate a conventional anatomy as they arise from the aortic arch. The origins of the common carotid arteries appear patent. The calibers and courses of both common carotid arteries are normal. The bifurcation regions appear normal bilaterally. The internal carotid arteries demonstrate normal course and caliber. Posterior circulation: The origins of the vertebral arteries appear patent. More superior portions of both vertebral arteries demonstrate normal course and caliber, and join to form a normal appearing basilar artery. Miscellaneous: Subclavian arteries appear patent. 1.8 centimeter left thyroid lobe nodule. Diffuse degenerative changes of the cervical spine without least moderate spinal canal stenosis no cyst posterior to C3-C4, C4-C5, C5-C6, and C6-C7. IMPRESSION: BRAIN MRI: No evidence of acute ischemia. Sequela of microvascular ischemic changes and cerebral volume loss. BRAIN MR ANGIOGRAM: No evidence of flow-limiting stenosis, occlusion, or other suspicious abnormality. Incidental note of the absent left A1 segment, common variant. NECK MR ANGIOGRAM: No evidence of flow-limiting stenosis, occlusion, or other suspicious abnormality. 1.8 centimeter left thyroid lobe nodule. Consider further evaluation with ultrasound. Advanced cervical spondylosis with at least moderate spinal canal narrowing posterior to C3-C4 through C6-C7. Dictated by: Sung Magana D.O. on 01/08/2021 at 15:25 Approved by: Sung Magana D.O. on 01/08/2021 at 15:45
--- NOTE | 2021-01-07 23:22 | DI.ECHO.S_ITS ---
[facility]---------+ [facility] +---------+ : : [address] : [place] : : : : [id number] : : : : Phone: [phone]+ Echocardiogram Report + + :Name: JESSICA MENDOZA Study Date: 01/08/2021 Height: 59 in : :[facility] ReadingLocation: Weight: 118 lb : : Gender: Female BSA: 1.5 m2 : :: 1935 Age: 85 yrs BP: 129/78 mmHg: :Reason For Study: CVA : :Ordering Physician: DILIP, : :ARMEN Performed By: Andrew Negron : :Referring: ARMEN CHERRY : + + Interpretation Summary The left ventricle is normal in size and wall thickness. There are no focal wall motion abnormalities. Diastolic parameters suggest a relaxation abnormality of the left ventricle, consistent with probable normal filling pressures. The right ventricle is normal in size and function. The right ventricular systolic pressure is estimated to be at least 24 mmHg based on an estimated right atrial pressure of 3 mm Hg. Both atria are normal in size. There is no significant valvular heart disease. The aortic root is normal size. No obvious source for cardiac embolic CVA. Procedure: A two-dimensional transthoracic echocardiogram with color flow and Doppler was performed. The study quality was technically adequate. Comparison is made with the echocardiogram of 11/15/2010. The patient was in sinus rhythm with heart rates between 54-61 bpm during the exam. Left Ventricle: The left ventricle is normal in size and wall thickness. Left ventricular systolic function is normal. The ejection fraction is estimated to be 60-65%. There are no focal wall motion abnormalities. Diastolic parameters suggest a relaxation abnormality of the left ventricle, consistent with probable normal filling pressures. Right Ventricle: The right ventricle is normal in size and function. Atria: Both atria are normal in size. There is no Doppler evidence for an interatrial shunt. Mitral Valve: The mitral valve is normal in structure and function. There is trace mitral regurgitation. Aortic Valve: There is discrete nodular thickening of the non- coronary cusp. There is mild aortic valve sclerosis. No aortic regurgitation is present. Tricuspid Valve: The tricuspid valve is normal in structure and function. There is a trace or physiologic amount of tricuspid regurgitation. The right ventricular systolic pressure is estimated to be at least 24 mmHg based on an estimated right atrial pressure of 3 mm Hg. Pulmonic Valve: The pulmonic valve is not well seen, but is grossly normal. There is a trace or physiologic amount of pulmonic regurgitation. There is no significant valvular heart disease. Great Vessels: The aortic root is normal size. The dimensions of the ascending aorta are normal. The IVC is of normal diameter and collapses greater than 50% with a sniff. This suggests a low right atrial pressure of 3 mm Hg. Pericardium/ Pleura There is no pericardial effusion. There is no pleural effusion. MMode/2D Measurements & Calculations LVIDd: 4.3 cm LVOT diam: 1.9 cm LVIDs: 2.8 cm Ao root diam: 3.3 cm FS: 35.5 % asc Aorta Diam: 3.1 cm IVSd: 0.87 cm LVPWd: 0.66 cm LV harrell. diameter/BSA (cm/m^2): 2.9 LV sys. diameter/BSA (cm/m^2): 1.9 LA A2 area: 14.0 cm2 RA long axis: 4.9 cm LA A4 area: 14.3 cm2 RA area: 11.5 cm2 LA length (vol): 5.1 cm RA vol: 23.1 ml LA vol: 33.4 ml RA : 15.7 ml/m2 LA vol index: 22.6 ml/m2 RVD1 (basal): 2.7 cm TAPSE: 1.8 cm Doppler Measurements & Calculations Ao V2 max: 142.0 cm/sec LVOT Max Sebastian: 116.2 cm/sec Ao V2 mean: 95.2 cm/sec LV V1 max P.4 mmHg Ao max P.1 mmHg LV V1 VTI: 23.0 cm Ao mean P.0 mmHg LARA(I,D): 2.3 cm2 Ao V2 VTI: 27.7 cm LARA(V,D): 2.3 cm2 sev ratio: 0.83 LARA indexed to BSA (cm^2/m^2): 1.5 MV E max sebastian: 55.1 cm/sec TR max sebastian: 229.5 cm/sec MV A max sebastian: 86.8 cm/sec TR max P.1 mmHg MV E/A: 0.63 PA V2 max: 71.8 cm/sec Med Peak E' Sebastian: 5.1 cm/sec PA V2 mean: 54.2 cm/sec E/E' med: 10.9 PA mean P.3 mmHg Lat Peak E' Sebastian: 6.0 cm/sec PA pr(Accel): 46.5 mmHg E/E' lat: 9.2 E/e' average: 10.0 MV dec time: 0.30 sec SV(OT): 63.2 ml Reading Physician:02:00 PM
--- NOTE | 2021-01-08 00:05 | PC.NURSE ---
patient is alert and oriented with NIH of 0. Does have some chronic weakness in left LE related to SELVIN 2 years ago. Breath sounds CTA with RA sat of 98%; placed on continuous oximetry. HRR w/telemetry reading of SR. Denies nausea. BT present and abdomen is soft. Denies dysuria, frequency or urgency with urination. Is able to turn herself in bed. Did have some momentary lightheadedness when first sitting up in bed but then resolved and was able to walk to the bathroom with SBA. Denies pain. Bilateral calf SCD's applied. Fall risk score is moderate and bed alarm is activated.
[2021-01-08 00:06] VITALS: BP 118/71; PULSE 69; RESP 16; TEMP 36.8; O2SAT 95
[2021-01-08] MEDS: SODIUM CHLORIDE 0.9% FLUSH 10 ML IV ×2 (00:39→09:12)
[2021-01-08] MEDS: CEFTRIAXONE 2 GM/50 ML FROZ.PIGGY IV (00:39)
[2021-01-08] MEDS: SODIUM CHLORIDE 0.9% 250 ML 21 ML IV (00:39)
[2021-01-08 04:00] VITALS: BP 102/54; PULSE 74; RESP 18; TEMP 36.4; O2SAT 97
[2021-01-08 05:48] LABS: Add Manual Diff / Slide Review NO; Basophils Absolute Auto 0 /uL (0-100); Basophils Percent Auto 0.6 % (0-2); Eosinophils Absolute Auto 100 /uL (0-450); Eosinophils Percent Auto 1.9 % (2-4); Hematocrit 38.2 % (36-46); Hemoglobin 13.3 g/dL (12.0-16.0); Lymphocytes Absolute Auto 2400 /uL (1100-4500); Lymphocytes Percent Auto 41.1 % (25-40); Mean Corpuscular HGB Conc 34.8 % (30-36); Mean Corpuscular Hemoglobin 32.3 PG (26-34); Mean Corpuscular Volume 92.9 fL (80-100); Monocytes Absolute Auto 400 /uL (0-900); Monocytes Percent Auto 7.7 % (3-14); Neutrophils Absolute Auto 2800 /uL (1500-7000); Neutrophils Percent Auto 48.7 % (50-75); Platelet Count 158 X10^3/uL (150-400); Red Blood Cell Count 4.11 X10^6/uL (4.0-5.2); Red Cell Distribution Width 13.1 % (11.6-14.8); White Blood Cell Count 5.8 X10^3/uL (4.5-11.0)
[2021-01-08 06:00] LABS: Blood Urea Nitrogen 16 mg/dL (7-17); Calcium 9.4 mg/dL (8.4-10.2); Carbon Dioxide 26 mmol/L (22-32); Chloride 107 mmol/L (98-107); Estimated Glomerular Filt Rate > 60.0 mL/min (>60); Glucose 93 mg/dL (80-110); HEMOLYSIS < 15 (0-50); Potassium 3.6 mmol/L (3.4-5.1); Sodium 140 mmol/L (137-145)
--- NOTE | 2021-01-08 07:30 | P.HP_ITS ---
History of Present Illness History of Present Illness Date Patient Seen: 01/08/21 Time Patient Seen: 07:30 Chief complaint: Possible Stroke Narrative: Patient is an 85-year-old female who presented to the ED as a code stroke with last known well state at 18:30 last night. She was on the phone with her daughter when she was suddenly unable to come up with the right words and began talking gibberish. 911 was called; however, she did not arrive to this facility until 20:30. Paramedics reported that her symptoms were waxing and waning. She denied weakness, facial droop, or loss of vision. No previous history of stroke. On daily aspirin. Vital signs upon admission to the ED included a temperature of 97.7?, pulse 76, respirations 18, blood pressure 151/83, O2 saturation 97% on room air. NIH stroke scale 1. Workup significant for a negative CTA head/neck and a positive UTI. She denies dysuria, hematuria, or polyuria. Noncontrast CT head did show: No definite contraindication to tPA administration from this study. Prominent microvascular atherosclerotic change in the deep white matter of each hemisphere is present, also concordant with advanced age. Basal gangliar calcification appears dystrophic. Two small sub insular cortex deep white matter lacunar infarctions incidentally noted. Patient was out of the [place] for tPA. Dr. Pitts, Proginet was consulted and he advised Plavix 600 mg p.o. x1 as a loading dose and then 75 mg p.o. q.day along with aspirin thereafter x1 month while awaiting MRI stroke protocol and echo today. Patient reports an uneventful night, she is back to baseline and is no longer having any aphasia. Past medical history: Hyperlipidemia Coronary artery disease Thyroid nodule Depression Glaucoma Past surgical history: Mastectomy Breast reconstruction Right carpal tunnel Detached retina Endometrial ablation Angioplasty Right hip replacement Left hip replacement Family history: Father: Heart disease, stroke Mother: Heart disease, hypertension Social history: , 1 child, Jalyn. 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 Patient History Medical History (Updated 01/08/21 @ 01:58 by Kristen Dougherty DO) Chronic left hip pain Gait instability Herniated nucleus pulposus, L4-5 left Lumbosacral radiculopathy at L4 Surgical History H/O bilateral mastectomy History of carpal tunnel surgery History of total left hip arthroplasty Status post total hip replacement, right Family & Social History Family History Father Heart disease Mother Heart disease Safety & Behavioral: Feels Safe in Current Yes Environment Been Physically Hurt or No Threatened By a Person Tobacco & Substance use: Smoking Status Former smoker Substance Use Type does not use Meds Home Medications and Allergies Home Medications Medication Instructions Recorded Confirmed Type VITAMIN C - 1,000 mg PO #0 08/03/06 01/18/20 History (VITAMIN C) [CALCIUM WITH D] Q DAY #0 08/03/06 01/18/20 History [ISTALOL] #0 08/03/06 01/18/20 History [MOVE FREE WITH GLUCO] #0 08/03/06 01/18/20 History ascorbate calcium (vitamin C) 500 500 mg PO DAILY 08/17/19 01/07/21 History mg tablet aspirin 81 mg chewable tablet 81 mg PO DAILY 08/17/19 01/07/21 History atorvastatin 80 mg tablet 80 mg PO DAILY 08/17/19 01/07/21 History calcium carbonate 600 mg calcium 600 mg PO DAILY 08/17/19 01/07/21 History (1,500 mg) tablet cholecalciferol (vitamin D3) 25 2,000 unit PO DAILY cap 08/17/19 01/07/21 History mcg (1,000 unit) capsule esomeprazole magnesium 40 mg 40 mg PO DAILY 08/17/19 01/07/21 History capsule,delayed release folic acid 400 mcg tablet 0.4 mg PO DAILY 08/17/19 01/07/21 History glucosamine HCl 500 mg tablet 1,000 mg PO DAILY tab 08/17/19 01/07/21 History latanoprost 0.005 % eye drops 1 drp EYE-BOTH BEDTIME 08/17/19 01/07/21 History mecobalamin (vitamin B12) 1,000 1,000 mcg SL DAILY 08/17/19 01/07/21 History mcg disintegrating tablet,sublingual meloxicam 15 mg tablet 15 mg PO DAILY 08/17/19 01/07/21 History metoprolol tartrate 50 mg tablet 50 mg PO DAILY 08/17/19 01/07/21 History multivitamin 1 tab PO DAILY 08/17/19 01/07/21 History nitroglycerin 0.4 mg sublingual 0.4 mg SL Q5M PRN 08/17/19 01/07/21 History tablet omega-3 fatty acids 1,000 mg 1,000 mg PO DAILY 08/17/19 01/07/21 History capsule pyridoxine (vitamin B6) 100 mg 100 mg PO DAILY tab 08/17/19 01/07/21 History tablet Allergies Allergy/AdvReac Type Severity Reaction Status Date / Time No Known Allergies Allergy Unknown Verified 01/07/21 21:34 [NO KNOWN ALLERGIES] Review of Systems Review of Systems ROS: Yes All systems reviewed with the patient and are negative except as otherwise documented Exam Vital Signs (past 8 hours): - 01/08/21 00:06 01/08/21 04:00 Temperature 98.2 F 97.6 F Pulse Rate 69 74 Respiratory Rate 16 18 Blood Pressure 118/71 102/54 L Pulse Oximetry 95 97 Oxygen Delivery Method Room Air Oxygen Flow Rate 0 Narrative Exam Narrative: GENERAL: Alert and oriented, appearing stated age and in no acute distress. HEENT: Head normocephalic/atraumatic. Pupils equal, round, and reactive to light and accomodation. Extraocular muscles intact. Tympanic membranes clear. Nasal mucosa moist, septum midline. Oral mucosa moist, no lesions. Neck soft and supple, no lymphadenopathy. LUNGS: Clear to ausculation bilaterally, no wheezes, rhonchi or rales. CV: Normal S1 and S2 with regular rate and rhythm, no audible murmurs, rubs or gallops. ABDOMEN: Soft, non-tender, non-distended, no organomegaly. Positive bowel sounds. EXTREMITIES: No clubbing, cyanosis, or edema. NEURO: Normal gait and speech. Cranial nerves II through XII grossly intact. Good ierefm-[id number]-nage and cxtz-le-bjta. Strength equal bilaterally, mild dysarthria or aphasia. Sensation intact to soft touch bilaterally, no visual changes or facial droop. PSYCH: Alert and oriented x 3. SKIN: No concerning lesions. Objective Labs Result Diagrams: 01/08/21 05:27 01/08/21 05:27 Labs: Laboratory Results - last 24 hr 01/07/21 01/07/21 01/07/21 20:42 20:42 20:42 WBC 5.9 RBC 4.00 Hgb 13.0 Hct 37.5 MCV 93.8 MCH 32.6 MCHC 34.7 RDW 13.3 Plt Count 162 Neut % (Auto) 47.8 L Lymph % (Auto) 42.5 H [place] % (Auto) 7.0 Eos % (Auto) 2.0 Baso % (Auto) 0.7 Neut # (Auto) 2800 Lymph # (Auto) 2500 [place] # (Auto) 400 Eos # (Auto) 100 Baso # (Auto) 0 PT 11.6 INR 1.0 APTT 36 Sodium 136 L Potassium 4.1 Chloride 103 Carbon Dioxide 26 BUN 21 H Creatinine 0.50 L Estimated GFR > 60.0 BUN/Creatinine Ratio 42.0 H Glucose 101 Calcium 9.2 Total Bilirubin 0.7 AST 22 ALT 14 Alkaline Phosphatase 55 Total Creatine Kinase 41 CK-MB (CK-2) TNP CK-MB (CK-2) Rel Index TNP Troponin I < 0.012 Total Protein 6.1 L Albumin 3.6 Globulin 2.5 Albumin/Globulin Ratio 1.4 TSH Urine Color Urine Appearance Urine pH Ur Specific Burden Urine Protein Urine Glucose (UA) Urine Ketones Urine Occult Blood Urine Nitrate Urine Bilirubin Urine Urobilinogen Ur Leukocyte Esterase Urine RBC Urine WBC Ur Squamous Epith Cells Urine Bacteria Ur Culture Indicated? U Opiates 300ng/mL cut Ur Oxycodone Screen Urine Methadone Screen Ur Barbiturates Screen U Tricyclic Antidepress Ur Phencyclidine Scrn Ur Amphetamines Screen U Methamphetamines Scrn Ur MDMA Scrn (Ecstasy) U Benzodiazepines Scrn Urine Cocaine Screen U Marijuana (THC) Screen SARS-CoV-2 (PCR) 01/07/21 01/07/21 01/07/21 21:40 21:43 21:43 WBC RBC Hgb Hct MCV MCH MCHC RDW Plt Count Neut % (Auto) Lymph % (Auto) [place] % (Auto) Eos % (Auto) Baso % (Auto) Neut # (Auto) Lymph # (Auto) [place] # (Auto) Eos # (Auto) Baso # (Auto) PT INR APTT Sodium Potassium Chloride Carbon Dioxide BUN Creatinine Estimated GFR BUN/Creatinine Ratio Glucose Calcium Total Bilirubin AST ALT Alkaline Phosphatase Total Creatine Kinase CK-MB (CK-2) CK-MB (CK-2) Rel Index Troponin I Total Protein Albumin Globulin Albumin/Globulin Ratio TSH Urine Color Yellow Urine Appearance Clear Urine pH 7.0 Ur Specific Burden <=1.005 Urine Protein Negative Urine Glucose (UA) Negative Urine Ketones Trace H Urine Occult Blood Negative Urine Nitrate Positive H Urine Bilirubin Negative Urine Urobilinogen 0.2 Ur Leukocyte Esterase Trace H Urine RBC None seen Urine WBC 10-30/hpf H Ur Squamous Epith Cells 1-5 /hpf Urine Bacteria Many (>30) H Ur Culture Indicated? Specimen cultured U Opiates 300ng/mL cut Negative Ur Oxycodone Screen Negative Urine Methadone Screen Negative Ur Barbiturates Screen Negative U Tricyclic Antidepress Negative Ur Phencyclidine Scrn Negative Ur Amphetamines Screen Negative U Methamphetamines Scrn Negative Ur MDMA Scrn (Ecstasy) Negative U Benzodiazepines Scrn Negative Urine Cocaine Screen Negative U Marijuana (THC) Screen Negative SARS-CoV-2 (PCR) Negative 01/08/21 01/08/21 01/08/21 05:27 05:27 05:27 WBC 5.8 RBC 4.11 Hgb 13.3 Hct 38.2 MCV 92.9 MCH 32.3 MCHC 34.8 RDW 13.1 Plt Count 158 Neut % (Auto) 48.7 L Lymph % (Auto) 41.1 H [place] % (Auto) 7.7 Eos % (Auto) 1.9 L Baso % (Auto) 0.6 Neut # (Auto) 2800 Lymph # (Auto) 2400 [place] # (Auto) 400 Eos # (Auto) 100 Baso # (Auto) 0 PT INR APTT Sodium 140 Potassium 3.6 Chloride 107 Carbon Dioxide 26 BUN 16 Creatinine 0.50 L Estimated GFR > 60.0 BUN/Creatinine Ratio 32.0 H Glucose 93 Calcium 9.4 Total Bilirubin AST ALT Alkaline Phosphatase Total Creatine Kinase CK-MB (CK-2) CK-MB (CK-2) Rel Index Troponin I Total Protein Albumin Globulin Albumin/Globulin Ratio TSH 1.40 Urine Color Urine Appearance Urine pH Ur Specific Burden Urine Protein Urine Glucose (UA) Urine Ketones Urine Occult Blood Urine Nitrate Urine Bilirubin Urine Urobilinogen Ur Leukocyte Esterase Urine RBC Urine WBC Ur Squamous Epith Cells Urine Bacteria Ur Culture Indicated? U Opiates 300ng/mL cut Ur Oxycodone Screen Urine Methadone Screen Ur Barbiturates Screen U Tricyclic Antidepress Ur Phencyclidine Scrn Ur Amphetamines Screen U Methamphetamines Scrn Ur MDMA Scrn (Ecstasy) U Benzodiazepines Scrn Urine Cocaine Screen U Marijuana (THC) Screen SARS-CoV-2 (PCR) Assessment & Plan Assessment & Plan narrative: 1. Aphasia, rule out stroke Plan: MR stroke protocol and echo pending. PT/OT. Per Neurology, patient is on Plavix 75 mg p.o. q.day and aspirin 81 mg p.o. q.day, recommendation is to continue dual therapy x 1 month. Will continue chronic metoprolol and atorvastatin for risk reduction. Will add zetia as noted in #4. She is on a low-cholesterol, low salt diet. 2. UTI, new, present on admission Plan: IV Rocephin. Cultures pending. 3. Coronary artery disease, chronic Plan: Continue home metoprolol 50 mg p.o. q.day and atorvastatin 80 mg p.o. q.h.s. Will add zetia as noted in #4. May benefit from outpatient PCI for risk reduction. 4. Hyperlipidemia, chronic Plan: Continue home atorvastatin 80 mg PO qhs. Last lipid panel on 10/14/2020 revealed a total cholesterol of 255, HDL 66, LDL 163, triglycerides 129. Will add zetia 10 mg PO qhs in addition to atorvastatin for improved LDL control in this high risk patient. 5. Thyroid nodule, chronic, stable, unchanged from 2017 -TSH 1.40 Plan: Will watch closely. 6. Glaucoma, chronic Plan: Continue home medications. 7. Depression, chronic Plan: Managed without medications, will watch closely. Code: Full DVT prophylaxis: SCDs COVID: Negative Disposition: Anticipate 48 hour stay.
[2021-01-08 08:00] VITALS: BP 129/78; PULSE 81; RESP 16; TEMP 36.8; O2SAT 95
[2021-01-08] MEDS: CLOPIDOGREL 75 MG TABLET PO (09:02)
[2021-01-08] MEDS: METOPROLOL IR 50 MG TABLET PO (09:02)
[2021-01-08] MEDS: PANTOPRAZOLE DR 40 MG TABLET PO (09:02)
[2021-01-08] MEDS: ASPIRIN 81 MG CHEW TAB PO (09:02)
[2021-01-08] MEDS: MULTIVITAMIN 1 TABLET 1 TAB PO (09:02)
[2021-01-08] MEDS: PYRIDOXINE (VITAMIN B6) 50 MG TABLET 100 MG PO (09:02)
[2021-01-08] MEDS: FOLIC ACID 0.4 MG TABLET PO (09:02)
[2021-01-08] MEDS: CYANOCOBALAMIN (VITAMIN B-12) 500 MCG TABLET 1000 MCG PO (09:03)
[2021-01-08] MEDS: CALCIUM CARBONATE 600 MG TABLET PO (09:03)
[2021-01-08] MEDS: ATORVASTATIN 20 MG TABLET 80 MG PO (09:03)
[2021-01-08] MEDS: MELOXICAM 7.5 MG TABLET 15 MG PO (09:03)
[2021-01-08] MEDS: FISH OIL 1,000 MG CAPSULE 1000 MG PO (09:03)
[2021-01-08] MEDS: CHOLECALCIFEROL (VITAMIN D3) 1,000 UNIT TABLET 2000 UNIT PO (09:03)
--- NOTE | 2021-01-08 10:20 | PT.IIE ---
Surgical History (Last Reviewed 01/08/21 @ 01:53 by Kristen Dougherty DO) H/O bilateral mastectomy History of carpal tunnel surgery History of total left hip arthroplasty Status post total hip replacement, right Medical History (Last Reviewed 01/08/21 @ 01:53 by Kristen Dougherty DO) Chronic left hip pain Gait instability Herniated nucleus pulposus, L4-5 left Lumbosacral radiculopathy at L4 Physical Therapy Inpatient Evaluation/Re-Eval M1 PT/OT-IP Prior Functional Status Start: 01/08/21 08:47 Freq: NEEDED Status: Active Protocol: Document 01/08/21 10:20 AW (Rec: 01/08/21 11:16 AW [id number]) Medical Review Prior Functional Status Medical History Reviewed Yes Communication WNL. Pt is an effective verbal communicator. She was admitted with reports of dysarthria but speech is clear and back to baseline per pt report on evaluation. Mobility and Gait Pt has history of bilateral SELVIN. Her left SELVIN (anterior approach) has been a source of pain and unsteadiness for her . She denies falls history. She uses a SPC on uneven ground but is otherwise independent for mobility. Activities of Daily Living and IADL's Independent with ADLs and IADLs. Pt drives, manages her own medications and finances. Social History Living Arrangements House Number of Floors (Floors) Two Floors Number of Stairs To Enter/Railing? Pt enters the house through the garage with level entry. She then clims 12 steps with R rail ascending to main level. Home Environment Standard Height Toilet,Tub/ Shower Home Equipment Front Wheel Walker,Straight Cane Employment Status Retired Additional Social History Comment Pt has a BFA from . She lives alone in [facility]. M2 PT-IP Current Condition Start: 01/08/21 08:47 Freq: NEEDED Status: Active Protocol: Document 01/08/21 10:20 AW (Rec: 01/08/21 11:16 AW [id number]) Physical Therapy Current Condition Current Condition Evaluation Date 01/08/21 Treatment Diagnosis possible TIA vs UTI; impaired balance and gait Onset Date 01/07/21 M3 PT-IP Subjective Start: 01/08/21 08:47 Freq: NEEDED Status: Active Protocol: Document 01/08/21 10:20 AW (Rec: 01/08/21 11:16 AW [id number]) Subjective Physical Therapy Visit Type Type Initial Evaluation Visit Start Time 09:46 Visit Stop Time 10:20 Total Visit Minutes 34 Number of SUPER[employer]OR [employer] DU[employer]ICATING UNIT Visits 0 Physical Therapy Visit Comments Patient Comments Pt is willing to participate with PT Patient Goals Improve overall steadiness. Therapy Pain Assessment Pain When Pain Assessed During Mobility Pain Present Pain Present Denied Pain M4 PT-IP Mobility and Gait Start: 01/08/21 08:47 Freq: NEEDED Status: Active Protocol: Document 01/08/21 10:20 AW (Rec: 01/08/21 11:16 AW [id number]) PT-Bed Mobility Assessment Supine to Sit Supine to Sit Standby Assistance Sit to Supine Sit to Supine Standby Assistance Scooting Scooting to Edge of Bed Standby Assistance PT-Transfer Assessment Sit to and From Stand Sit to and from Stand Standby Assistance Equipment Transfer Assistive Device None,Gait Belt Orthotic/Prosthetic Devices or Brace: No Transfers Transfer Destination Bed,Toilet Transfer Technique pt amb SBA Transfer Ability Level of Assist Standby Assistance,Use of Upper Extremities Comments Mobility Comments Pt was reclined in the bed as PT arrived. She completed supine to sit SBA and stood for static balance assessment. She then ambulated in the dickens SBA to CGA as she participated in Functional Gait Assessment. On return to the room, she transferred back to supine SBA for echo exam. Gait Assessment Gait Gait Assistance Required: Standby Assistance,Contact Guard Assist Distance (Feet) 300 Able to Maintain Weight Bearing Status Yes During Gait Assistive Devices Assistive Device None,Gait Belt Orthotic/Prosthetic Devices or Brace: No Gait Deviations General Gait Pattern Antalgic,Decreased Stride Length,Decreased Feet Clearance,Lateral Trunk Lean, Narrow Based Gait,Step-to Gait Factors Limiting Gait Function Factors Limiting Gait Function Decreased Strength,Pain,Poor Balance,Poor Safety Awareness Comments Gait Comments Pt scored 08/08 on FGA requiring SBA to CGA. Her baseline gait is affected by chronic left hip pain. Pt reported gait on exam was consistent with her baseline. Stair Climbing Assessment Evaluation Level of Assist On Stairs Standby Assistance Devices Stair Climbing Assistive Devices Right Railing Technique/Endurance Stair Climbing Direction Ascend and Descend Stair Climbing Technique Step to Step Number of Steps Climbed 3 Query Text: Stair Climbing Set # Repetitions (reps) 2 PT-Balance Assessment Sitting Balance and Reactions Static Sitting Balance Ability Good Dynamic Sitting Balance Ability Good Standing Balance and Reactions Static Standing Balance Ability Fair Dynamic Standing Balance Ability Poor Device Used no AD Balance Tests Romberg increased sway EO and EC Tandem Standing unable without assist Functional Assessments Functional Tests Functional Gait Assessment 08/08 M5 PT-IP Objective Assessments Start: 01/08/21 08:47 Freq: NEEDED Status: Active Protocol: Document 01/08/21 10:20 AW (Rec: 01/08/21 11:16 AW [id number]) Orientation Orientation/Cognition Level of Alertness Alert Orientation Name,Month,Year,Place, Situation Language Function Ability No Deficits Noted Safety Awareness Understands Safety Issues Memory Description No Deficits Noted Gross Range of Motion Upper Extremity ROM Assessment Within Functional Limits Lower Extremity ROM Assessment Within Functional Limits Strength Upper Extremity Strength Assessment Within Functional Limits Lower Extremity Strength Assessment Left Impaired Hip 3+/5 Knee 4-/5 Ankle 4/5 Comments Strength Comments RLE grossly 4/5 Coordination Assessment Gross Coordination Gross Coordination WNL Assessment Finger to Nose Test Normal Performance Pronation/Supination Test Normal Performance Foot Tapping Test Normal Performance Heel on Bellamy Test Normal Performance Sensation Assessment Sensation Gross Sensation WNL Muscle Tone Muscle Tone WNL Yes Other Assessments Other Other Assessments Occulomotor exam grossly normal but pt exhibits signs of possibly impaired VOR on vestibular exam. M6 PT-IP Treatment Start: 01/08/21 08:47 Freq: NEEDED Status: Active Protocol: Document 01/08/21 10:20 AW (Rec: 01/08/21 11:16 AW [id number]) Physical Therapy Treatment Education Education Provided Safety Other Treatments Other Treatment Performed Provided education on role of PT, dynamic balance impairments evident on exam, and recommendation for outpatient PT. M7 PT-IP Assessment and Plan Start: 01/08/21 08:47 Freq: NEEDED Status: Active Protocol: Document 01/08/21 10:20 AW (Rec: 01/08/21 11:16 AW [id number]) PT Summary Assessment and Plan Potential Rehabilitation Potential Good Status of Condition at Evaluation Evolving Summary Impairments Pain,Strength,Balance,Gait Assessment Summary Adeline is an 85 yo woman seen for PT evaluation after being admitted with dysarthria. PLOF : Pt lives alone and is independent in all regards except for use of SPC on uneven terrain. She has chronic left hip pain affecting her gait. CLOF: Pt required SBA to CGA to complete Functional Gait Assessment and scored 11/30 which is well below norms for her age-matched peers (Balwinder, 2007). Pt will be safe to discharge home once medically cleared but would benefit from outpatient PT to address dynamic balance impairments. Goals Bed Mobility Goal Independent Transfer Goal Independent Gait Goal Independent Gait Distance 500 Other Goals - up/down 12 steps with R rail ascending IND Frequency of Treatment Frequency Of Treatment Once a Day Treatment Plan Physical Therapy Treatment Plan Bed Mobility Training,Transfer Training,Gait Training, Therapeutic Exercise,Balance Retraining,Discharge Planning, Hot or Cold Pack,Neuromuscular Re-ed Other Recommendations and Next Treatment balance interventions Focus Recommendations To Nursing Amount of Assist Needed Standby Assistance Discharge Recommendations PT Discharge Recommendations Home,Outpatient PT Transportation Needs at Discharge Private Vehicle
--- NOTE | 2021-01-08 10:58 | CM.IDA ---
Initial DCP Assessment Note Pt is an 85 yo female, resident of [place], presents w/symptoms of TIA vs CVA, admitted observation for stroke r/o work up PCP: Michael Carmona Payer: [facility]/[employer] Spoke w/Dr Ashraf this morning, she has ordered w/u to include echo, MRI and PT/OT carmen, expects patient may be cleared to DC back home this afternoon/evening..however, patient's MRI is an ad on and if this cannot be completed today, patient will be offered the option to DC home w/outpatient f/u. Patient being seen by Dr Ashraf, echo and PT Faith this morning, walking indp w/ SBA. No needs expected from DC planning team although will remain available in case this changes today. TITO [place] Discharge Planning/Care Management CM Discharge Assessment Start: 01/08/21 10:51 Freq: Status: Active Protocol: Document 01/08/21 10:51 LORY (Rec: 01/08/21 10:57 LORY [id number]) Discharge Planning Assessment Assigned Ear Flap Binder TITO Srivastava DPOA/Assigned Designee Name Jalyn Hua dtr ([place] ) Contact Information [phone] Advance Directives? No History Provided By Patient Prior Living Arrangements House Household Members none Type of transporation used prior to Drives own vehicle admit Willing to Return to Facility? No Independent with ADL's Yes Is patient alert and oriented? Yes Discharge Plan Home Transportation Arrangement Friends vs family Referrals Initiated None needed
--- NOTE | 2021-01-08 11:47 | OT.IP.EVAL ---
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 Pt is an effective verbal communicator. She was admitted with reports of dysarthria but speech is clear and back to baseline per pt report on evaluation. Mobility and Gait Pt has history of bilateral SELVIN. Her left SELVIN (anterior approach) has been a source of pain and unsteadiness for her . She denies falls history. She uses a SPC on uneven ground but is otherwise independent for mobility. Activities of Daily Living and IADL's Independent with ADLs and IADLs. Pt drives, manages her own medications and finances. Social History Household Members none Living Arrangements House Number of Floors (Floors) Two Floors Number of Stairs To Enter/Railing? Pt enters the house through the garage with level entry. She then clims 12 steps with R rail ascending to main level. Home Environment Standard Height Toilet,Tub/ Shower Home Equipment Front Wheel Walker,Straight Cane Employment Status Retired Additional Social History Comment Pt has a BFA from . She lives alone in [facility]. M1 PT/OT-IP Prior Functional Status Start: 01/08/21 12:01 Freq: NEEDED Status: Active Protocol: Document 01/08/21 12:01 CGR (Rec: 01/08/21 12:09 CGR [id number]) Medical Review Prior Functional Status Medical History Reviewed Yes Communication WNL. Pt is an effective verbal communicator. She was admitted with reports of dysarthria but speech is clear and back to baseline per pt report on evaluation. Mobility and Gait Pt has history of bilateral SELVIN. Her left SELVIN (anterior approach) has been a source of pain and unsteadiness for her . She denies falls history. She uses a SPC on uneven ground but is otherwise independent for mobility. Activities of Daily Living and IADL's Independent with ADLs and IADLs. Pt drives, manages her own medications and finances. Social History Household Members none Living Arrangements House Number of Floors (Floors) Two Floors Number of Stairs To Enter/Railing? Pt enters the house through the garage with level entry. She then clims 12 steps with R rail ascending to main level. Home Environment Standard Height Toilet,Tub/ Shower Home Equipment Front Wheel Walker,Straight Cane Employment Status Retired Additional Social History Comment Pt has a BFA from . She lives alone in [facility]. M2 OT-IP Current Condition Start: 01/08/21 12:01 Freq: Status: Active Protocol: Document 01/08/21 12:01 CGR (Rec: 01/08/21 12:09 CGR [id number]) Occupational Therapy Current Condition Current Condition Evaluation Date 01/08/21 Treatment Diagnosis UTI vs TIA Diagnosis Onset Date 01/07/21 M3 OT- IP Subjective and Pain Start: 01/08/21 12:01 Freq: Status: Active Protocol: Document 01/08/21 12:01 CGR (Rec: 01/08/21 12:09 CGR [id number]) OT- Subjective Occupational Therapy Visit Type Type Initial Evaluation Visit Start Time 11:22 Visit Stop Time 11:47 Total Visit Minutes 25 OT Pain Assessment Pain When Pain Assessed At Rest Pain Present Pain Present Denied Pain M4 OT- IP ADL's Start: 01/08/21 12:01 Freq: Status: Active Protocol: Document 01/08/21 12:01 CGR (Rec: 01/08/21 12:09 CGR [id number]) OT [id number] Comments OT Self-Feeding Comments Not meal time OT ADL-Grooming General Evaluation Grooming Ability Independent Areas Needing Assistance Combing/Brushing Hair,Face Washing Comments OT Grooming Comments Standing at sink OT ADL-Oral Care General Eval Oral Care Ability Independent Comments Oral Care Comments Standing at sink OT ADL-Dressing General Eval Lower Body Dressing Ability Independent Areas Needing Assistance Socks OT ADL-Toileting General Evaluation Toileting Ability Independent Devices Toileting Assistive Devices Grab Bars Comments OT Toileting Comments seated on toilet OT ADL-Bathing Comments OT Bathing Comments not performed M5 OT- IP IADL's Start: 01/08/21 12:01 Freq: Status: Active Protocol: Document 01/08/21 12:01 CGR (Rec: 01/08/21 12:09 CGR [id number]) OT-Instrumental Activities of Daily Living Deficits IADL Deficits Identified No Deficits Home Safety Awareness Awareness of Need for Assistance at Home Good Awareness Ability to Problem Solve Emergency Able to Problem Solve Situations Medication Management Medication Management No Deficits Identified Money Management Money Management No Deficits Identified Meal Preparation Meal Preparation No Deficits Identified Artist Blacksmith Artist Blacksmith No Deficits Identified Driving Driving Comments 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 M6 OT- IP Functional Cognition Start: 01/08/21 12:01 Freq: Status: Active Protocol: Document 01/08/21 12:01 CGR (Rec: 01/08/21 12:09 R [id number]) Cognitive Factors Limiting Selfcare Function Cognitive Ability Level of Alertness Alert Patient Orientation Name,Age,Birthday,Month,Date, Year,Day of Week,Place, Situation Attention Span Ability Capable of Focused Attention, Capable of Sustained Attention Ability to Follow Commands Able to Follow Multi-Step Commands OT- Vision and Hearing OT- Hearing Assessment OT- Hearing Assessment WFL OT- Vision Assessment Vision History Cataracts,Glaucoma Visual Acuity Glasses All The Time,No Vision Aides At Hospital Visual Attentiveness WFL Occular Pursuits WFL Vision Assessment Comments Pt states she wears glasses for driving. She underwent cateract sx but also suffers from glaucoma. Pt's perpheral vision is lacking during testing. M7 OT- IP Mobility and Balance Start: 01/08/21 12:01 Freq: Status: Active Protocol: Document 01/08/21 12:01 CGR (Rec: 01/08/21 12:09 R [id number]) OT- Bed Mobility Assessment Supine to Sit Supine to Sit Assist Independent Scooting Scooting to Edge of Bed Independent OT-Transfer Assessment Sit to and From Stand Sit to and from Stand Independent Transfers Transfer Ability Independent Technique Transfer Destination Bed,Chair,Toilet Transfer Technique Stand Step Pivot Devices Transfer Assistive Devices Gait Belt Comments Mobility Comments Mobility around the room. OT- Gait Assessment Comments Gait Ability Comments See P.T. note for more information. 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 Strength Hand Dominance Right Comments Strength Comments Of note, pt is very slightly weaker in the R hand but grossly 4/5 throughout OT- Coordination Assessment Upper Extremity Finger to Nose Test Within Functional Limits Finger Tapping Test Within Functional Limits OT-Muscle Tone Assessment Muscle Tone WNL Yes OT Sensation Assessment Comments Summary Comments Pt states sensation is typical at this time Edema Edema Absent M9 OT- IP Assessment and Plan Start: 01/08/21 12:01 Freq: Status: Active Protocol: Document 01/08/21 12:01 CGR (Rec: 01/08/21 12:09 CGR [id number]) OT Summary Assessment and Plan Potential Rehabilitation Potential Excellent Analytic Complexity at Evaluation Low Summary Progress Towards Goals Goals Met Assessment Summary Pt presents as a low complexity evaluation s/p admit for TIA vs UTI. Pt presents at or near her baseline of IND for ADLs. No further OT needs. Frequency of Treatment Frequency Of Treatment Discharge Discharge Recommendations OT Discharge Recommendations Home Transportation Needs at Discharge Private Vehicle
[2021-01-08 12:00] VITALS: BP 121/69; PULSE 54; RESP 16; TEMP 36.7; O2SAT 97
[2021-01-08 14:25] VITALS: BP 121/69; PULSE 54; RESP 16; TEMP 36.7; O2SAT 97
[2021-01-08 16:12] VITALS: BP 109/61; PULSE 67; RESP 18; TEMP 36.3; O2SAT 97
--- NOTE | 2021-01-08 18:10 | P.DS_ITS ---
History of Present Illness History of Present Illness Date Patient Seen: 01/08/21 Time Patient Seen: 18:11 Chief complaint: Possible Stroke Narrative: Patient is an 85-year-old female who presented to the ED as a code stroke with last known well state at 18:30 last night. She was on the phone with her daughter when she was suddenly unable to come up with the right words and began talking gibberish. 911 was called; however, she did not arrive to this facility until 20:30. Paramedics reported that her symptoms were waxing and waning. She denied weakness, facial droop, or loss of vision. No previous history of stroke. On daily aspirin. Vital signs upon admission to the ED included a temperature of 97.7?, pulse 76, respirations 18, blood pressure 151/83, O2 saturation 97% on room air. NIH stroke scale 1. Workup significant for a negative CTA head/neck and a positive UTI. She denies dysuria, hematuria, or polyuria. Noncontrast CT head did show: No definite contraindication to tPA administration from this study. Prominent microvascular atherosclerotic change in the deep white matter of each hemisphere is present, also concordant with advanced age. Basal gangliar calcification appears dystrophic. Two small sub insular cortex deep white matter lacunar infarctions incidentally noted. Patient was out of the [place] for tPA. Dr. Pitts, [facility] was consulted and he advised Plavix 600 mg p.o. x1 as a loading dose and then 75 mg p.o. q.day along with aspirin thereafter x1 month while awaiting MRI stroke protocol and echo today. Patient reports an uneventful night, she is back to baseline and is no longer having any aphasia. Discharge Providers Provider Date of admission: 01/07/21 22:09 Discharge Date: 01/08/21 Primary care physician: Michael Carmona MD Consults: 01/07/21 23:18 Consult to Discharge Planning Routine Comment: Consult to Occupational Therapy Evaluate & Treat Comment: Physician Instructions: Evaluate and treat Consult to Physical Therapy Evaluate & Treat Comment: Physician Instructions: Evaluate and Treat Consult to Speech Therapy Evaluate & Treat Comment: Physician Instructions: Evaluate and treat Discharge provider: Nusrat Ashraf MD Summary Hospital Course Discharge Diagnosis: 1. Aphasia, etiology unclear, TIA versus UTI 2. UTI, new, present on admission 3. Coronary artery disease, chronic 4. Hyperlipidemia, chronic 5. Thyroid nodule, chronic, stable, unchanged from 2017 6. Glaucoma, chronic 7. Depression, chronic Hospital Course: Unremarkable. Patient was admitted overnight for stroke rule out. MRI stroke protocol and echo showed no acute source of emboli. Essentially at time of presentation and throughout the remainder of her stay, patient had returned to her baseline with no further aphasia. NIH stroke scale upon presentation was 1 and thereafter was 0 throughout her stay. Workup was significant for urinary tract infection and she received 1 dose of Rocephin prior to discharge. She will be transitioned to oral ciprofloxacin with plans to follow-up in 1 week. Due to her cardiovascular risk factors, telehealth ca urologist recommended 1 month of Plavix and aspirin which has been started. Due to dual antiplatelet therapy, meloxicam was temporarily discontinued. Zetia was also added to improve LDL control and reduce ASCVD risk factors. On day of discharge, patient was afebrile with stable vital signs throughout. Exam Vital Signs (past 8 hours): - 01/08/21 12:00 01/08/21 14:25 01/08/21 16:12 Temperature 98.1 F 98.1 F 97.4 F L Pulse Rate 54 L 54 L 67 Respiratory Rate 16 16 18 Blood Pressure 121/69 121/69 109/61 Pulse Oximetry 97 97 97 Oxygen Delivery Method Room Air Oxygen Flow Rate 0 Narrative Exam Narrative: GENERAL: Alert and oriented, appearing stated age and in no acute distress. HEENT: Head normocephalic/atraumatic. Pupils equal, round, and reactive to light and accomodation. Extraocular muscles intact. Tympanic membranes clear. Nasal mucosa moist, septum midline. Oral mucosa moist, no lesions. Neck soft and supple, no lymphadenopathy. LUNGS: Clear to ausculation bilaterally, no wheezes, rhonchi or rales. CV: Normal S1 and S2 with regular rate and rhythm, no audible murmurs, rubs or gallops. ABDOMEN: Soft, non-tender, non-distended, no organomegaly. Positive bowel sounds. EXTREMITIES: No clubbing, cyanosis, or edema. NEURO: Normal gait and speech. Cranial nerves II through XII grossly intact. Good [id number] and [id number]. Strength equal bilaterally, mild dysarthria or aphasia. Sensation intact to soft touch bilaterally, no visual changes or facial droop. PSYCH: Alert and oriented x 3. SKIN: No concerning lesions. Objective Labs Result Diagrams: 01/08/21 05:27 01/08/21 05:27 Labs: Laboratory Results - last 24 hr 01/07/21 01/07/21 01/07/21 20:42 20:42 20:42 WBC 5.9 RBC 4.00 Hgb 13.0 Hct 37.5 MCV 93.8 MCH 32.6 MCHC 34.7 RDW 13.3 Plt Count 162 Neut % (Auto) 47.8 L Lymph % (Auto) 42.5 H [place] % (Auto) 7.0 Eos % (Auto) 2.0 Baso % (Auto) 0.7 Neut # (Auto) 2800 Lymph # (Auto) 2500 [place] # (Auto) 400 Eos # (Auto) 100 Baso # (Auto) 0 PT 11.6 INR 1.0 APTT 36 Sodium 136 L Potassium 4.1 Chloride 103 Carbon Dioxide 26 BUN 21 H Creatinine 0.50 L Estimated GFR > 60.0 BUN/Creatinine Ratio 42.0 H Glucose 101 Calcium 9.2 Total Bilirubin 0.7 AST 22 ALT 14 Alkaline Phosphatase 55 Total Creatine Kinase 41 CK-MB (CK-2) TNP CK-MB (CK-2) Rel Index TNP Troponin I < 0.012 Total Protein 6.1 L Albumin 3.6 Globulin 2.5 Albumin/Globulin Ratio 1.4 TSH Urine Color Urine Appearance Urine pH Ur Specific Wing Urine Protein Urine Glucose (UA) Urine Ketones Urine Occult Blood Urine Nitrate Urine Bilirubin Urine Urobilinogen Ur Leukocyte Esterase Urine RBC Urine WBC Ur Squamous Epith Cells Urine Bacteria Ur Culture Indicated? U Opiates 300ng/mL cut Ur Oxycodone Screen Urine Methadone Screen Ur Barbiturates Screen U Tricyclic Antidepress Ur Phencyclidine Scrn Ur Amphetamines Screen U Methamphetamines Scrn Ur MDMA Scrn (Ecstasy) U Benzodiazepines Scrn Urine Cocaine Screen U Marijuana (THC) Screen SARS-CoV-2 (PCR) 01/07/21 01/07/21 01/07/21 21:40 21:43 21:43 WBC RBC Hgb Hct MCV MCH MCHC RDW Plt Count Neut % (Auto) Lymph % (Auto) [place] % (Auto) Eos % (Auto) Baso % (Auto) Neut # (Auto) Lymph # (Auto) [place] # (Auto) Eos # (Auto) Baso # (Auto) PT INR APTT Sodium Potassium Chloride Carbon Dioxide BUN Creatinine Estimated GFR BUN/Creatinine Ratio Glucose Calcium Total Bilirubin AST ALT Alkaline Phosphatase Total Creatine Kinase CK-MB (CK-2) CK-MB (CK-2) Rel Index Troponin I Total Protein Albumin Globulin Albumin/Globulin Ratio TSH Urine Color Yellow Urine Appearance Clear Urine pH 7.0 Ur Specific Wing <=1.005 Urine Protein Negative Urine Glucose (UA) Negative Urine Ketones Trace H Urine Occult Blood Negative Urine Nitrate Positive H Urine Bilirubin Negative Urine Urobilinogen 0.2 Ur Leukocyte Esterase Trace H Urine RBC None seen Urine WBC 10-30/hpf H Ur Squamous Epith Cells 1-5 /hpf Urine Bacteria Many (>30) H Ur Culture Indicated? Specimen cultured U Opiates 300ng/mL cut Negative Ur Oxycodone Screen Negative Urine Methadone Screen Negative Ur Barbiturates Screen Negative U Tricyclic Antidepress Negative Ur Phencyclidine Scrn Negative Ur Amphetamines Screen Negative U Methamphetamines Scrn Negative Ur MDMA Scrn (Ecstasy) Negative U Benzodiazepines Scrn Negative Urine Cocaine Screen Negative U Marijuana (THC) Screen Negative SARS-CoV-2 (PCR) Negative 01/08/21 01/08/21 01/08/21 05:27 05:27 05:27 WBC 5.8 RBC 4.11 Hgb 13.3 Hct 38.2 MCV 92.9 MCH 32.3 MCHC 34.8 RDW 13.1 Plt Count 158 Neut % (Auto) 48.7 L Lymph % (Auto) 41.1 H [place] % (Auto) 7.7 Eos % (Auto) 1.9 L Baso % (Auto) 0.6 Neut # (Auto) 2800 Lymph # (Auto) 2400 [place] # (Auto) 400 Eos # (Auto) 100 Baso # (Auto) 0 PT INR APTT Sodium 140 Potassium 3.6 Chloride 107 Carbon Dioxide 26 BUN 16 Creatinine 0.50 L Estimated GFR > 60.0 BUN/Creatinine Ratio 32.0 H Glucose 93 Calcium 9.4 Total Bilirubin AST ALT Alkaline Phosphatase Total Creatine Kinase CK-MB (CK-2) CK-MB (CK-2) Rel Index Troponin I Total Protein Albumin Globulin Albumin/Globulin Ratio TSH 1.40 Urine Color Urine Appearance Urine pH Ur Specific Wing Urine Protein Urine Glucose (UA) Urine Ketones Urine Occult Blood Urine Nitrate Urine Bilirubin Urine Urobilinogen Ur Leukocyte Esterase Urine RBC Urine WBC Ur Squamous Epith Cells Urine Bacteria Ur Culture Indicated? 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, right Family History Father Heart disease Mother Heart disease Social History household members: none occupational status: previously employed Smoking Status: Former smoker Discharge Plan Discharge Plan Patient Disposition: Home Discharge orders & Medications Prescriptions: New clopidogrel 75 mg Tablet 75 mg PO DAILY 30 Days Qty: 30 RF: 0 ciprofloxacin HCl [Cipro] 500 mg Tablet 500 mg PO 0700,2100 7 Days Qty: 14 RF: 0 ezetimibe [Zetia] 10 mg Tablet 10 mg PO BEDTIME 30 Days Qty: 30 RF: 0 Continued VITAMIN C - (VITAMIN C) 1,000 mg PO Qty: 0 RF: 0 [CALCIUM WITH D] Q DAY Qty: 0 RF: 0 [MOVE FREE WITH GLUCO] Qty: 0 RF: 0 [ISTALOL] Qty: 0 RF: 0 nitroglycerin 0.4 mg tablet, sublingual 0.4 mg SL Q5M PRN (Reason: Chest Pain) RF: 0 metoprolol tartrate [Lopressor] 50 mg tablet 50 mg PO DAILY RF: 0 atorvastatin [Lipitor] 80 mg tablet 80 mg PO DAILY RF: 0 esomeprazole magnesium [Nexium] 40 mg capsule,delayed release(DR/EC) 40 mg PO DAILY RF: 0 latanoprost [Xalatan] 0.005 % drops 1 drp EYE-BOTH BEDTIME RF: 0 calcium carbonate [Calcium 600] 600 mg calcium (1,500 mg) tablet 600 mg PO DAILY RF: 0 cholecalciferol (vitamin D3) 1,000 unit capsule 2,000 unit PO DAILY RF: 0 ascorbate calcium (vitamin C) 500 mg tablet 500 mg PO DAILY RF: 0 pyridoxine (vitamin B6) [Vitamin B-6] 100 mg tablet 100 mg PO DAILY RF: 0 mecobalamin (vitamin B12) 1,000 mcg tablet,disintegrating 1,000 mcg SL DAILY RF: 0 omega-3 fatty acids [Fish Oil Concentrate] 1,000 mg capsule 1,000 mg PO DAILY RF: 0 multivitamin Tablet 1 tab PO DAILY RF: 0 aspirin [Aspirin Childrens] 81 mg tablet,chewable 81 mg PO DAILY RF: 0 glucosamine HCl 500 mg tablet 1,000 mg PO DAILY RF: 0 folic acid 400 mcg tablet 0.4 mg PO DAILY RF: 0 Discontinued meloxicam 15 mg tablet 15 mg PO DAILY RF: 0 Follow up/Referrals: Michael Carmona MD [Primary Care Provider] - Diet/Activity/Treatments Diet: Low-sodium and Low-cholesterol Activity: As tolerated. Skin/Wound/Dressing Care Report to your healthcare provider any signs of infection, such as:: chills, fe walter and increased pain Visit Report/Discharge Packet Instructions: DI for Transient Ischemic Attack, DI for Urinary Tract Infection (UTI) Discharge Data Primary Care Provider: Michael Carmona Attending Provider: Nusrat Ashraf
--- NOTE | 2021-01-08 18:56 | PC.NURSE ---
discharge paper work and education given to patient. provider ok with patient taking all her new meds starting tomorrow. pt aware she will need to make a follow up appt with Dr. Philippe. medication instruction given to patient. Provider aware regarding QT prolong. ICU nurse reports it might have been positional. no other QT prolong noted.
== END 2021-01-08 19:40 | disposition home or self-care (01) ==
LOC: ED 22:07 → AC 22:10
PROVIDERS: Admitting Provider Student in an Organized Health Care Education/Training Program; Emergency Provider Emergency Medicine; PCP Family Medicine; Referring Provider Emergency Medicine; Visit Provider Student in an Organized Health Care Education/Training Program
DX: R47.01 Aphasia (principal); R29.818 Other symptoms and signs involving the nervous system; E78.5 Hyperlipidemia, unspecified; I25.10 Atherosclerotic heart disease of native coronary artery without angina pectoris; F32.9 Major depressive disorder, single episode, unspecified; H40.9 Unspecified glaucoma; N39.0 Urinary tract infection, site not specified; B96.89 Other specified bacterial agents as the cause of diseases classified elsewhere; E04.1 Nontoxic single thyroid nodule; Z20.822 Contact with and (suspected) exposure to COVID-19
CPT/HCPCS: 36415; 70450; 70496; 70498; 70548; 70553; 71045; 80048; 80053; 80305; 81001; 82550; 82962; 84443; 84484; 85025; 85610; 85730; 87077; 87086; 87186; 87635; 93005; 93306; 96365; 97116; 97162; 97165; 97535; 99285; C9803; G0378; Q3014; A9270; J0696; Q9967

== ENCOUNTER 2021-12-07 11:58 | Observation (INO) | payer MEDICARE, OTHER, SELFPAY ==
[2021-01-07 22:35] VITALS: BMI 24.0
--- NOTE | 2021-12-07 11:59 | DI.CT.S_ITS ---
PROCEDURE: CT ANGIO HEAD AND NECK INDICATIONS: aphasia TECHNIQUE: Noncontrast images were performed earlier in the day and not repeated. After the administration of intravenous contrast, 1 mm thick sections acquired from the aortic arch through the [place]. Post-contrast 4.5 mm thick sections then re-acquired from the foramen magnum to the vertex. 3-dimensional ilgfijk-ykeskqqeo-nnticqhnho (MIP) and/or volume rendering reformats were acquired of the central intracranial vasculature and neck separately. COMPARISON: [facility], MR, MR STROKE, 01/08/2021, 15:23. [facility], CT, CT STROKE, 12/07/2021, 12:01. [facility], CT, CT ANGIO HEAD AND NECK, 01/07/2021, 20:24. FINDINGS: Image quality: Excellent. BRAIN: CSF spaces: Ventricles are normal in size and shape. Basal cisterns are patent. No extra-axial fluid collections. Brain: No midline shift. No intracranial bleeds or masses. Woods-white matter interface appears intact. Skull and face: Calvarium and facial bones appear intact, without suspicious lesions. Orbits appear normal. Sinuses: Sinuses and mastoids are clear. HEAD CT ANGIOGRAPHY: Anterior circulation: Intracranial internal carotid arteries demonstrate atherosclerotic calcification and irregularity, with approximately 40% narrowing seen on each side. The flow within the paired anterior cerebral arteries is normal and symmetric. The flow within the middle cerebral arteries is normal and symmetric. The anterior communicating artery is seen. No aneurysms are seen. Posterior circulation: Note is made of bilateral type origins of the posterior cerebral arteries, with an associated diminutive basilar artery. The flow within the posterior cerebral arteries is normal and symmetric. The distal vertebral arteries are overall small in size, yet otherwise unremarkable. No aneurysms are seen. NECK CT ANGIOGRAPHY: Carotid system: The great vessels demonstrate a conventional anatomy as they arise from the aortic arch. The origins of the common carotid arteries appear patent. The common carotid arteries demonstrate normal caliber and courses. The bifurcation regions demonstrate atherosclerotic calcification, yet without a hemodynamically significant stenosis. The more distal internal carotid arteries demonstrate normal course and caliber. Posterior circulation: The origins of the vertebral arteries both appear widely patent. The more superior extracranial portions of both vertebral arteries also demonstrate normal courses and calibers. They join to form a normal appearing basilar artery. Soft tissues: Visualized neck soft tissues demonstrate no suspicious abnormalities. A left thyroid nodule is again incidentally noted measuring approximately 1.3 cm. Bones: No suspicious bony lesions. Visualized cervical spine appears normally aligned. Prominent cervical spine degenerative changes are seen. IMPRESSION: No significant intracranial arterial abnormality is seen. Within the arteries of the neck, no hemodynamically significant stenosis can be seen. If there is strong clinical suspicion for an acute stroke, please consider a brain MRI for further evaluation, as it is more sensitive (assuming that there is no contraindication to MRI). Incidental note is made of: Dapcuz-zy-Bwvpnr developmental anomalies Prominent cervical spine degenerative changes Stable left thyroid nodule Any quantitative measurements of stenosis were performed using NASCET criteria. Dictated by: Jona Ramirez M.D. on 12/07/2021 at 11:23 Approved by: Jona Ramirez M.D. on 12/07/2021 at 11:28
--- NOTE | 2021-12-07 11:59 | DI.CT.S_ITS ---
PROCEDURE: CT STROKE INDICATIONS: aphasia TECHNIQUE: Noncontrast 4.5 mm thick angled axial sections acquired from the foramen magnum to the vertex, with coronal reformats. For radiation dose reduction, the following was used: automated exposure control, adjustment of mA and/or kV according to patient size. COMPARISON: [facility], CT, CT STROKE, 01/07/2021, 20:20. FINDINGS: Image quality: Excellent. CSF spaces: Basal cisterns are patent. No extra-axial fluid collections. The ventricles are symmetric in size and shape. Brain: No intracranial bleeds or masses. There is cerebral volume loss for age, with resultant ventricular and sulcal prominence. There are periventricular and deep white matter chronic small vessel ischemic changes. Physiologic calcifications in the basal ganglia are stable. There is intracranial internal carotid artery atherosclerosis. Skull and face: Calvarium and visualized facial bones appear intact, without suspicious lesions. Sinuses: Visualized sinuses and mastoids are clear. IMPRESSION: No acute intracranial disease process. Findings telephoned to Dr. Powers on December 07, 2021 at 12:17 p.m. This study fulfills neurological imaging criteria for inclusion or exclusion of acute stroke therapies based on available published neurological guidelines. Dictated by: Carmen Olivera MD, PhD on 12/07/2021 at 12:16 Approved by: Carmen Olivera MD, PhD on 12/07/2021 at 12:19
[2021-12-07 12:00] VITALS: BP 112/56; PULSE 88; RESP 16; TEMP 36.8; O2SAT 98
--- NOTE | 2021-12-07 12:27 | ED_ITS ---
HPI - Neuro Symptoms/Deficit General Chief Complaint: Neuro Symptoms/Deficit Stated Complaint: Stroke Time Seen by Provider: 12/07/21 11:59 Source: patient Mode of arrival: EMS History of Present Illness HPI Narrative: Code stroke was called at 11:40 a.m.. Patient brought in from home for complaints of headache and expressive aphasia. Last well known at 9:00 p.m. last night. Awoke this morning at 5:00 a.m. with headache and had difficulty with expressive aphasia. She had hard time getting her words out. No weakness no slurred speech no facial droop. Patient went to her neighbor's asking for help. Currently no headache. History of the same last year and admitted for expressive aphasia/TIA. No recent illness. No fever chills cough cold congestion. EMS blood sugar was 112. Patient still waxing and waning with her symptoms. On Anticoagulants: No Related Data Home Medications Medication Instructions Recorded Confirmed VITAMIN C - 1,000 mg PO #0 08/03/06 01/18/20 (VITAMIN C) [CALCIUM WITH D] Q DAY #0 08/03/06 01/18/20 [ISTALOL] #0 08/03/06 01/18/20 [MOVE FREE WITH GLUCO] #0 08/03/06 01/18/20 ascorbate calcium (vitamin C) 500 500 mg PO DAILY 08/17/19 01/07/21 mg tablet aspirin 81 mg chewable tablet 81 mg PO DAILY 08/17/19 01/07/21 (Aspirin Childrens) atorvastatin 80 mg tablet (Lipitor) 80 mg PO DAILY 08/17/19 01/07/21 calcium carbonate 600 mg calcium 600 mg PO DAILY 08/17/19 01/07/21 (1,500 mg) tablet (Calcium) cholecalciferol (vitamin D3) 25 2,000 unit PO DAILY cap 08/17/19 01/07/21 mcg (1,000 unit) capsule esomeprazole magnesium 40 mg 40 mg PO DAILY 08/17/19 01/07/21 capsule,delayed release (Nexium) folic acid 400 mcg tablet 0.4 mg PO DAILY 08/17/19 01/07/21 glucosamine HCl 500 mg tablet 1,000 mg PO DAILY tab 08/17/19 01/07/21 latanoprost 0.005 % eye drops 1 drp EYE-BOTH BEDTIME 08/17/19 01/07/21 (Xalatan) mecobalamin (vitamin B12) 1,000 1,000 mcg SL DAILY 08/17/19 01/07/21 mcg disintegrating tablet,sublingual metoprolol tartrate 50 mg tablet 50 mg PO DAILY 08/17/19 01/07/21 (Lopressor) multivitamin 1 tab PO DAILY 08/17/19 01/07/21 nitroglycerin 0.4 mg sublingual 0.4 mg SL Q5M PRN 08/17/19 01/07/21 tablet omega-3 fatty acids 1,000 mg 1,000 mg PO DAILY 08/17/19 01/07/21 capsule (Fish Oil Concentrate) pyridoxine (vitamin B6) 100 mg 100 mg PO DAILY tab 08/17/19 01/07/21 tablet (Vitamin B-6) Allergies Allergy/AdvReac Type Severity Reaction Status Date / Time No Known Allergies Allergy Unknown Verified 01/07/21 21:34 [NO KNOWN ALLERGIES] Review of Systems Review of Systems Narrative: GENERAL: Denies chills, fatigue, malaise, fever, sweats. HEENT: Denies sinus pain, ear pain, sore throat RESPIRATORY: Denies dyspnea, cough CARDIOVASCULAR: Denies chest pain, palpitations GASTROINTESTINAL: Denies nausea, vomiting, abdominal pain : Denies dysuria, frequency, hematuria MUSCULOSKELETAL: denies muscle or bony pain SKIN: Denies rash, skin lesions NEUROLOGIC: Denies weakness, numbness, positive for aphasia, positive for headache ROS Unobtainable: All systems reviewed & are unremarkable except as noted in HPI and below Hematologic/Lymphatic On Anticoagulants: No Patient History Medical History (Updated 12/07/21 @ 12:38 by Sonny Powers MD) Chronic left hip pain Gait instability Herniated nucleus pulposus, L4-5 left Lumbosacral radiculopathy at L4 Surgical History H/O bilateral mastectomy History of carpal tunnel surgery 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 EYES: Pupils equal round No scleral icterus. ENT: Mucous membranes moist. NECK: Trachea midline. CARDIOVASCULAR: Regular rate and rhythm without murmurs RESPIRATORY: Clear to auscultation. Breath sounds equal bilaterally. No wheezes, rales, or rhonchi. GASTROINTESTINAL: Abdomen soft, non-tender EXTREMITIES: No gross deformities. BACK: No flank tenderness. NEURO: AOx4. Clear speech no facial droop. Light touch intact to bilateral face hands and feet. Strong equal metal sander bilaterally and ankle flexion hip flexion and knee flexion. Strong bilateral patellar reflexes. No pronator drift. Does have expressive aphasia that waxes and wanes. But not consistently. SKIN: Warm and dry PSYCH: Not anxious, is cooperative Initial Vital Signs Initial Vital Signs: Vital Signs Temperature 98.2 F 12/07/21 12:00 Pulse Rate 88 12/07/21 12:00 Respiratory Rate 16 12/07/21 12:00 Blood Pressure 112/56 L 12/07/21 12:00 Pulse Oximetry 98 12/07/21 12:00 Scores NIH Stroke Scale Level of Conciousness: Alert, keenly responsive Ask month/age: Answers both questions correctly. Open/close eyes, close hand: Performs both tasks correctly Best gaze horizontal: Normal Visual aranda: No visual loss Facial palsy: Normal symetrical movement Left arm drift: No drift for full 10 sec Right arm drift: No drift for full 10 sec Left leg drift: No drift for full 5 sec Right leg drift: No drift for full 5 sec Limb ataxia: Absent Sensory on face/arms/legs: Normal, no sensory loss Best language: Mild to moderate, slurs some words Dysarthria: Normal Extinction or inattention: No abnormality Total NIH Stroke scale score: 1 Course Course Course Narrative: Code stroke called at 11:40 a.m.. Orders Ordered: ED Orders 12/07/21 11:[address] angio head and neck Stat 12/07/21 12:13 Complete Blood Count AUTO DIFF Stat Partial Thromboplastin Time Stat Prothrombin Time INR Stat 12/07/21 12:26 CMP [Comprehensive Metabolic Panel] Stat Troponin & CK Cardiac Panel Stat 12/07/21 12:59 COVID19 -Nasal swab/Pre-Proc Stat Discontinued Medications Sodium Chloride (Normal Saline 0.9%) 1,000 mls @ 1,000 mls/hr IV BOLUS ONE Stop: 12/07/21 13:26 Last Infusion: 12/07/21 13:59 Dose: 0 mls/hr Documented by: Admin: 12/07/21 12:38 Dose: 1,000 mls/hr Documented by: CHANCE Reevaluation(s) Reevaluation #1: Updated patient results of imaging. Agrees for admit. Time: 12:46 Consultations Consultation #1: Spoke with radiologist CT scan head without contrast no acute process. Time: 12:14 Consultation #2: Spoke with tele stroke, Dr. Caceres, agrees patient should be admitted. Echocardiogram and MRI. Start aspirin 325 mg as well as Plavix 75 mg now. Continue for 21 days and then switch to Plavix only. Time: 12:40 Consultation #3: Spoke with hospitalist, dr ngo, will admit Time: 12:48 Vital Signs Vital signs: Vital Signs - 8 hr 12/07/21 12:00 Temperature 98.2 F Pulse Rate 88 Respiratory Rate 16 Blood Pressure 112/56 L Pulse Oximetry 98 MDM - Neuro Symptoms/Deficit Differential Diagnosis Differential diagnosis: Likely cerebrovascular accident and transient cerebral ischemia Lab Data Result diagrams: 12/07/21 12:13 12/07/21 12:26 Labs: Lab Results 12/07/21 12/07/21 12/07/21 Range/Units 12:13 12:13 12:26 WBC 6.6 (4.5-11.0) X10^3/uL RBC 4.01 (4.0-5.2) X10^6/uL Hgb 13.2 (12.0-16.0) g/dL Hct 37.3 (36-46) % MCV 92.9 (80-100) fL MCH 32.9 (26-34) PG MCHC 35.4 (30-36) % RDW 13.1 (11.6-14.8) % Plt Count 153 (150-400) X10^3/uL Neut % (Auto) 74.0 (50-75) % Lymph % (Auto) 21.3 L (25-40) % [place] % (Auto) 4.2 (3-14) % Eos % (Auto) 0.1 L (2-4) % Baso % (Auto) 0.4 (0-2) % Neut # (Auto) 4900 (4694-4434) /uL Lymph # (Auto) 1400 (4004-9475) /uL [place] # (Auto) 300 (0-900) /uL Eos # (Auto) 0 (0-450) /uL Baso # (Auto) 0 (0-100) /uL PT 11.8 (10.1-12.7) SECONDS INR 1.0 (0.9-1.3) APTT 32 (26.4-36.2) SECONDS Sodium (137-145) mmol/L Potassium (3.4-5.1) mmol/L Chloride (98-107) mmol/L Carbon Dioxide (22-32) mmol/L BUN (7-17) mg/dL Creatinine (0.52-1.04) mg/dL Estimated GFR (>60) mL/min BUN/Creatinine Ratio (6-22) Glucose (80-110) mg/dL Calcium (8.4-10.2) mg/dL Total Bilirubin (0.2-1.3) mg/dL AST (14-36) IU/L ALT (<35) IU/L Alkaline Phosphatase (38-126) U/L Total Creatine Kinase 45 (30-135) U/L CK-MB (CK-2) TNP CK-MB (CK-2) Rel Index TNP Troponin I < 0.012 (0.01-0.034) ng/mL Total Protein (6.3-8.2) g/dL Albumin (3.5-5.0) g/dL Globulin (1.7-4.1) g/dL Albumin/Globulin Ratio (1.0-2.8) 12/07/21 Range/Units 12:26 WBC (4.5-11.0) X10^3/uL RBC (4.0-5.2) X10^6/uL Hgb (12.0-16.0) g/dL Hct (36-46) % MCV (80-100) fL MCH (26-34) PG MCHC (30-36) % RDW (11.6-14.8) % Plt Count (150-400) X10^3/uL Neut % (Auto) (50-75) % Lymph % (Auto) (25-40) % [place] % (Auto) (3-14) % Eos % (Auto) (2-4) % Baso % (Auto) (0-2) % Neut # (Auto) (4523-2457) /uL Lymph # (Auto) (3816-7758) /uL [place] # (Auto) (0-900) /uL Eos # (Auto) (0-450) /uL Baso # (Auto) (0-100) /uL PT (10.1-12.7) SECONDS INR (0.9-1.3) APTT (26.4-36.2) SECONDS Sodium 132 L (137-145) mmol/L Potassium 4.0 (3.4-5.1) mmol/L Chloride 102 (98-107) mmol/L Carbon Dioxide 23 (22-32) mmol/L BUN 21 H (7-17) mg/dL Creatinine 0.57 (0.52-1.04) mg/dL Estimated GFR > 60.0 (>60) mL/min BUN/Creatinine Ratio 36.8 H (6-22) Glucose 102 (80-110) mg/dL Calcium 9.0 (8.4-10.2) mg/dL Total Bilirubin 1.1 (0.2-1.3) mg/dL AST 28 (14-36) IU/L ALT 17 (<35) IU/L Alkaline Phosphatase 46 (38-126) U/L Total Creatine Kinase (30-135) U/L CK-MB (CK-2) CK-MB (CK-2) Rel Index Troponin I (0.01-0.034) ng/mL Total Protein 6.5 (6.3-8.2) g/dL Albumin 3.9 (3.5-5.0) g/dL Globulin 2.6 (1.7-4.1) g/dL Albumin/Globulin Ratio 1.5 (1.0-2.8) Point of Care Testing Glucose POC [address] scan - head: Radiologist's Impression: [address] [address] [address] Scan Report Signed Patient: Bri Haley MR#: [id number] : 1935 Acct:[id number] Age/Sex: 86 / F Date of Service: 12/07/21 Loc: ED Accession Number: [id number] ?? Procedure: CT Stroke Ordering Provider: Sonny Powers MD PROCEDURE:? CT STROKE ? INDICATIONS:? aphasia ? TECHNIQUE:? Noncontrast 4.5 mm thick angled axial sections acquired from the foramen magnum to the vertex, with coronal reformats.? For radiation dose reduction, the following was used:? automated exposure control, adjustment of mA and/or kV according to patient size.? ? COMPARISON:? [facility], CT, CT STROKE, 01/07/2021, 20:20. ? FINDINGS:? Image quality:? Excellent.? ? CSF spaces:? Basal cisterns are patent.? No extra-axial fluid collections.? The ventricles are symmetric in size and shape.? ? Brain:? No intracranial bleeds or masses.? There is cerebral volume loss for age, with resultant ventricular and sulcal prominence.? There are periventricular and deep white matter chronic small vessel ischemic changes.? Physiologic calcifications in the basal ganglia are stable.? There is intracranial internal carotid artery atherosclerosis.? ? Skull and face:? Calvarium and visualized facial bones appear intact, without suspicious lesions.? ? Sinuses:? Visualized sinuses and mastoids are clear.? ? ? IMPRESSION:? No acute intracranial disease process. ? Findings telephoned to Dr. Powers on December 07, 2021 at 12:17 p.m. ? ? This study fulfills neurological imaging criteria for inclusion or exclusion of acute stroke therapies based on available published neurological guidelines.? ? ? Dictated by: Carmen Olivera MD, PhD on 12/07/2021 at 12:16 ? ? Approved by: Carmen Olivera MD, PhD on 12/07/2021 at 12:19 ? CTA - brain/neck: Radiologist's Impression: [address] [address] [address] Scan Report Signed Patient: Bri Haley MR#: [id number] : 1935 Acct:[id number] Age/Sex: 86 / F Date of Service: 12/07/21 Loc: ED Accession Number: [id number] ?? Procedure: CT angio head and neck Ordering Provider: Sonny Powers MD PROCEDURE:? CT ANGIO HEAD AND NECK ? INDICATIONS:? aphasia ? TECHNIQUE:? Noncontrast images were performed earlier in the day and not repeated.? ? After the administration of intravenous contrast, 1 mm thick sections acquired from the aortic arch through the [place].? Post-contrast 4.5 mm thick sections then re- acquired from the foramen magnum to the vertex.? 3-dimensional fqnyqxn-nkexdmlht-nxtcuoluhy (MIP) and/or volume rendering reformats were acquired of the central intracranial vasculature and neck separately. ? COMPARISON:? [facility], MR, MR STROKE, 01/08/2021, 15:23.? [facility], CT, CT STROKE, 12/07/2021, 12:01.? [facility], CT, CT ANGIO HEAD AND NECK, 01/07/2021, 20:24. ? FINDINGS:? Image quality:? Excellent.? ? BRAIN:? CSF spaces:? Ventricles are normal in size and shape.? Basal cisterns are patent.? No extra-axial fluid collections.? ? Brain:? No midline shift.? No intracranial bleeds or masses.? [place]-white matter interface appears intact.? ? Skull and face:? Calvarium and facial bones appear intact, without suspicious lesions.? Orbits appear normal.? ? Sinuses:? Sinuses and mastoids are clear.? ? HEAD CT ANGIOGRAPHY:? Anterior circulation:? Intracranial internal carotid arteries demonstrate atherosclerotic calcification and irregularity, with approximately 40% narrowing seen on each side.? The flow within the paired anterior cerebral arteries is normal and symmetric.? The flow within the middle cerebral arteries is normal and symmetric.? The anterior communicating artery is seen.? No aneurysms are seen.? ? Posterior circulation:? Note is made of bilateral type origins of the posterior cerebral arteries, with an associated diminutive basilar artery.? The flow within the posterior cerebral arteries is normal and symmetric.? The distal vertebral arteries are overall small in size, yet otherwise unremarkable.? No aneurysms are seen.? ? NECK CT ANGIOGRAPHY:? Carotid system:? The great vessels demonstrate a conventional anatomy as they arise from the aortic arch.? The origins of the common carotid arteries appear patent.? The common carotid arteries demonstrate normal caliber and courses.? The bifurcation regions demonstrate atherosclerotic calcification, yet without a hemodynamically significant stenosis. The more distal internal carotid arteries demonstrate normal course and caliber.? ? Posterior circulation:? The origins of the vertebral arteries both appear widely patent.? The more superior extracranial portions of both vertebral arteries also demonstrate normal courses and calibers.? They join to form a normal appearing basilar artery.? ? Soft tissues:? Visualized neck soft tissues demonstrate no suspicious abnormal ities.? A left thyroid nodule is again incidentally noted measuring approximately 1.3 cm. ? Bones:? No suspicious bony lesions.? Visualized cervical spine appears normally aligned.? Prominent cervical spine degenerative changes are seen. ? ? IMPRESSION:? No significant intracranial arterial abnormality is seen.? ? Within the arteries of the neck, no hemodynamically significant stenosis can be seen. ? ? If there is strong clinical suspicion for an acute stroke, please consider a brain MRI for further evaluation, as it is more sensitive (assuming that there is no contraindication to MRI). ? ? Incidental note is made of: Eqkmsw-gn-Safzgn developmental anomalies Prominent cervical spine degenerative changes Stable left thyroid nodule ? Any quantitative measurements of stenosis were performed using NASCET criteria.? ? ? Dictated by: Jona Ramirez M.D. on 12/07/2021 at 11:23 ? ? Approved by: Jona Ramirez M.D. on 12/07/2021 at 11:28 ? ECG Data Interpretation: Normal sinus rhythm rate [address] elevation or depression. MDM Narrative Medical decision making narrative: Appropriate for admission. Patient will need MRI echocardiogram and modifications for her anticoagulation. Patient agrees for admission. I did review a tele stroke, patient outside window for any intervention or endovascular studies. Patient agrees for admit Stroke Core Measures Exclusion Criteria TPA in CVA: Symptom Onset >3 or 4.5 Hours Discharge Plan Departure Patient Disposition: Admitted as Observation Clinical Impression: CVA (cerebral vascular accident) Admit Date/Time: 12/07/21 12:57 Admit Provider: Eleazar Ngo
[2021-12-07 12:29] LABS: Add Manual Diff / Slide Review NO; Basophils Absolute Auto 0 /uL (0-100); Basophils Percent Auto 0.4 % (0-2); Eosinophils Absolute Auto 0 /uL (0-450); Eosinophils Percent Auto 0.1 % (2-4); Hematocrit 37.3 % (36-46); Hemoglobin 13.2 g/dL (12.0-16.0); Lymphocytes Absolute Auto 1400 /uL (1100-4500); Lymphocytes Percent Auto 21.3 % (25-40); Mean Corpuscular HGB Conc 35.4 % (30-36); Mean Corpuscular Hemoglobin 32.9 PG (26-34); Mean Corpuscular Volume 92.9 fL (80-100); Monocytes Absolute Auto 300 /uL (0-900); Monocytes Percent Auto 4.2 % (3-14); Neutrophils Absolute Auto 4900 /uL (1500-7000); Platelet Count 153 X10^3/uL (150-400); Red Blood Cell Count 4.01 X10^6/uL (4.0-5.2); Red Cell Distribution Width 13.1 % (11.6-14.8); White Blood Cell Count 6.6 X10^3/uL (4.5-11.0)
[2021-12-07 12:30] LABS: Prothrombin Time 11.8 SECONDS (10.1-12.7)
[2021-12-07 12:33] LABS: PTT Partial Thromboplastin Tim 32 SECONDS (26.4-36.2)
[2021-12-07] MEDS: SODIUM CHLORIDE 0.9% 1,000 ML 1000 ML IV (12:38)
[2021-12-07 12:50] LABS: Creatine Kinase 45 U/L (30-135)
--- NOTE | 2021-12-07 13:02 | DI.MRI.S_ITS ---
PROCEDURE: MR HEAD/BRAIN WO CON INDICATIONS: aphasia TECHNIQUE: Non-contrast axial T1 spin echo, axial T2 fast spin echo, sagittal and axial FLAIR, coronal T2 fast spin echo, axial gradient echo, axial diffusion and ADC through the brain. COMPARISON: [facility], MR, MR STROKE, 01/08/2021, 15:23. [facility], CT, CT ANGIO HEAD AND NECK, 12/07/2021, 12:01. [facility], CT, CT STROKE, 12/07/2021, 12:01. FINDINGS: Image quality: Excellent. CSF spaces: Ventricles appear symmetric in size and shape. Basal cisterns are patent. No extra-axial fluid collections. Brain: No intracranial bleeds or mass effects. There is cerebral volume loss for age. There are periventricular and deep white matter chronic small vessel ischemic changes. Brainstem appears normal. Diffusion-weighted images show no acute ischemic insults. No chronic ischemic insults. Normal intravascular flow voids are present. Relatively prominent perivascular spaces are noted. Skull and face: Calvarial bone marrow is normal in signal. Orbits are normal. Note is made of bilateral lens replacements. Sinuses: Sinuses and mastoids are clear. IMPRESSION: No findings of acute or subacute infarction can be seen. Note is made of age-appropriate brain parenchymal volume loss and chronic small vessel ischemic changes. Dictated by: Jona Ramirez M.D. on 12/07/2021 at 14:10 Approved by: Jona Ramirez M.D. on 12/07/2021 at 14:12
[2021-12-07 13:03] LABS: Troponin I < 0.012 ng/mL (0.01-0.034)
[2021-12-07 13:11] LABS: Alanine Aminotransferase 17 IU/L (<35); Albumin 3.9 g/dL (3.5-5.0); Albumin Globulin Ratio 1.5 (1.0-2.8); Alkaline Phosphatase 46 U/L (38-126); Aspartate Aminotransferase 28 IU/L (14-36); BUN Creatinine Ratio 36.8 (6-22); Bilirubin Total 1.1 mg/dL (0.2-1.3); Blood Urea Nitrogen 21 mg/dL (7-17); Carbon Dioxide 23 mmol/L (22-32); Chloride 102 mmol/L (98-107); Estimated Glomerular Filt Rate > 60.0 mL/min (>60); Globulin 2.6 g/dL (1.7-4.1); Glucose 102 mg/dL (80-110); HEMOLYSIS < 15 (0-50); Sodium 132 mmol/L (137-145); Total Protein 6.5 g/dL (6.3-8.2)
[2021-12-07 13:42] VITALS: BMI 23.1
[2021-12-07 13:53] LABS: COVID19 -Nasal RAPID Negative (Negative)
[2021-12-07 13:53] LABS: Bacteria Urine Many (>30); Culture Indicated Urine Specimen Cultured; RBC Urine 0-1/HPF (0-5/HPF); Squamous Epithelial Cell Urine 0-1 /HPF (0-5/HPF); WBC Urine 1-5/HPF (0-5/HPF)
--- NOTE | 2021-12-07 14:52 | PC.NURSE ---
Addendum entered by Maria Del Carmen Bahena R.N. 12/07/21 18:40: Patient able to transfer to restroom with SBA and FWW. Noted a bit of dizziness that resolved while resting on the edge of the bed. Patient voiding without complication, denies urgency, dysuria, or frequency. Back to bed, tele remains on. Bed alarm on. Patient instructed to call before getting OOB. Verbalized understanding. Denies further needs at this time. Original Note: Patient arrived to unit, tele place, S. Patient denied chest pain, SOB, N/V, dizziness. Endorsed headache that improved by dimming the lights. Patient also endorsed mild tingling in tips of fingers bilaterally. Reports this is WNL for her. Patient does have a hard time finding words but is A/O x 3. Daughter is present on arrival. Patient taking downstairs for MRI.
--- NOTE | 2021-12-07 16:28 | P.HP_ITS ---
History of Present Illness History of Present Illness Chief complaint: Stroke Narrative: 86yo female with a hx of TIA that presents with expressive aphasia. The patient reports this started this morning when she woke up, around 0500. She felt off. She had a headache at this time, for which she took ibuprofen, of an unknown quantity, although she says she took 2 pills. She then fell back asleep, and woke up around 1000 having a hard time with word-finding. She tried to call her daughter for help, but could not remember how to work the phone. Therefore, she walked to her neighbor's house and asked for help, and they called 911. Since then, the patient states she'll still sometimes struggle with thinking and saying the right word, although it wasn't as bad as this morning. She states she had a similar episode almost exactly 1 year ago. She was prescribed indefinite baby aspirin at that time. She admits to sometimes forgetting to take the med, usually once per week. Her other meds include a statin and many supplement meds, and she says she takes those regularly. The patient used to smoke, from ages 20 to 37, approximately 1 ppd. She denies current tobacco use, illicit drug use, or EtOH use. PSH is notable for bilateral hip replacement, and bilateral mastectomy for breast cancer. Family hx is notable for father who had a stroke at age 51, along with an TX at age 31, and a mother with an TX at age 32. The patient underwent drug-eluting stent placement, times 4, 10 years ago, per the pt. She does not recall which arterial distribution. She is currently retired. She lives alone, with family nearby, and denies any need for help at home. Patient History Medical History (Updated 12/07/21 @ 12:38 by Sonny Powers MD) Chronic left hip pain Gait instability Herniated nucleus pulposus, L4-5 left Lumbosacral radiculopathy at L4 Surgical History H/O bilateral mastectomy History of carpal tunnel surgery History of total left hip arthroplasty Status post total hip replacement, right Family & Social History Family History Father Heart disease Mother Heart disease Social History: household members none Prior Living Arrangements House Safety & Behavioral: Feels Safe in Current Yes Environment Been Physically Hurt or No Threatened By a Person Suicidal Ideation Description None Suicide Plan Description No Plan Tobacco & Substance use: Smoking Status Former smoker alcohol intake current alcohol intake frequency 0-2 drinks per day Substance Use Type does not use Meds Home Medications and Allergies Home Medications Medication Instructions Recorded Confirmed Type VITAMIN C - 1,000 mg PO #0 08/03/06 01/18/20 History (VITAMIN C) [CALCIUM WITH D] Q DAY #0 08/03/06 01/18/20 History [ISTALOL] #0 08/03/06 01/18/20 History [MOVE FREE WITH GLUCO] #0 08/03/06 01/18/20 History ascorbate calcium (vitamin C) 500 500 mg PO DAILY 08/17/19 12/07/21 History mg tablet aspirin 81 mg chewable tablet 81 mg PO DAILY 08/17/19 12/07/21 History (Aspirin Childrens) atorvastatin 80 mg tablet (Lipitor) 80 mg PO DAILY 08/17/19 12/07/21 History calcium carbonate 600 mg calcium 600 mg PO DAILY 08/17/19 12/07/21 History (1,500 mg) tablet (Calcium) cholecalciferol (vitamin D3) 25 2,000 unit PO DAILY cap 08/17/19 12/07/21 History mcg (1,000 unit) capsule esomeprazole magnesium 40 mg 40 mg PO DAILY 08/17/19 12/07/21 History capsule,delayed release (Nexium) folic acid 400 mcg tablet 0.4 mg PO DAILY 08/17/19 12/07/21 History glucosamine HCl 500 mg tablet 1,000 mg PO DAILY tab 08/17/19 12/07/21 History latanoprost 0.005 % eye drops 1 drp EYE-BOTH BEDTIME 08/17/19 12/07/21 History (Xalatan) mecobalamin (vitamin B12) 1,000 1,000 mcg SL DAILY 08/17/19 12/07/21 History mcg disintegrating tablet,sublingual metoprolol tartrate 50 mg tablet 50 mg PO DAILY 08/17/19 12/07/21 History (Lopressor) multivitamin 1 tab PO DAILY 08/17/19 12/07/21 History nitroglycerin 0.4 mg sublingual 0.4 mg SL Q5M PRN 08/17/19 12/07/21 History tablet omega-3 fatty acids 1,000 mg 1,000 mg PO DAILY 08/17/19 12/07/21 History capsule (Fish Oil Concentrate) pyridoxine (vitamin B6) 100 mg 100 mg PO DAILY tab 08/17/19 12/07/21 History tablet (Vitamin B-6) omeprazole 40 mg capsule,delayed 40 mg DAILY 12/07/21 12/07/21 History release Allergies Allergy/AdvReac Type Severity Reaction Status Date / Time No Known Allergies Allergy Unknown Verified 01/07/21 21:34 [NO KNOWN ALLERGIES] Review of Systems Constitutional Comments: Denies fever/chills, night sweats, unintentional weight loss Eyes Comments: Denies vision changes, double vision Cardiovascular Comments: Denies CP, palpitations, edema Respiratory Comments: Denies cough, SOB, wheezing Gastrointestinal Comments: Denies abd pain, n/v/d Integumentary/Breasts Comments: Denies new skin lesions Neurologic Comments: Endorses word-finding difficulty Exam Vital Signs (past 8 hours): - 12/07/21 12:00 Temperature 98.2 F Pulse Rate 88 Respiratory Rate 16 Blood Pressure 112/56 L Pulse Oximetry 98 Oxygen Delivery Method Room Air Const Other: The patient is laying in bed comfortably upon my entering the room, looking at a dinner menu, with daughter at bedside Eyes Other: No scleral icterus appreciated Neck Other: No carotid bruits noted Resp Other: Lungs clear to auscultation bilaterally Cardio Other: RRR, S1 and S2 heart sounds normal, no extra heart sounds or murmurs appreciated GI Other: Soft, non-distended, non-tender, bowel sounds present Skin Other: No grossly abnormal skin lesions noted Neuro Other: CN II-XII intact, slight expressive aphasia noted and without receptive aphasia, no grossly focal neurological deficits appreciated Extrem Other: Palpable dorsalis pedis pulses bilaterally Objective Labs Result Diagrams: 12/07/21 12:13 12/07/21 12:26 Labs: Laboratory Results - last 24 hr 12/07/21 12/07/21 12/07/21 12:13 12:13 12:26 WBC 6.6 RBC 4.01 Hgb 13.2 Hct 37.3 MCV 92.9 MCH 32.9 MCHC 35.4 RDW 13.1 Plt Count 153 Neut % (Auto) 74.0 Lymph % (Auto) 21.3 L [place] % (Auto) 4.2 Eos % (Auto) 0.1 L Baso % (Auto) 0.4 Neut # (Auto) 4900 Lymph # (Auto) 1400 [place] # (Auto) 300 Eos # (Auto) 0 Baso # (Auto) 0 PT 11.8 INR 1.0 APTT 32 Sodium Potassium Chloride Carbon Dioxide BUN Creatinine Estimated GFR BUN/Creatinine Ratio Glucose Calcium Total Bilirubin AST ALT Alkaline Phosphatase Total Creatine Kinase 45 CK-MB (CK-2) TNP CK-MB (CK-2) Rel Index TNP Troponin I < 0.012 Total Protein Albumin Globulin Albumin/Globulin Ratio Urine RBC Urine WBC Ur Squamous Epith Cells Urine Bacteria Ur Culture Indicated? SARS-CoV-2 (PCR) 12/07/21 12/07/21 12/07/21 12:26 12:59 13:26 WBC RBC Hgb Hct MCV MCH MCHC RDW Plt Count Neut % (Auto) Lymph % (Auto) [place] % (Auto) Eos % (Auto) Baso % (Auto) Neut # (Auto) Lymph # (Auto) [place] # (Auto) Eos # (Auto) Baso # (Auto) PT INR APTT Sodium 132 L Potassium 4.0 Chloride 102 Carbon Dioxide 23 BUN 21 H Creatinine 0.57 Estimated GFR > 60.0 BUN/Creatinine Ratio 36.8 H Glucose 102 Calcium 9.0 Total Bilirubin 1.1 AST 28 ALT 17 Alkaline Phosphatase 46 Total Creatine Kinase CK-MB (CK-2) CK-MB (CK-2) Rel Index Troponin I Total Protein 6.5 Albumin 3.9 Globulin 2.6 Albumin/Globulin Ratio 1.5 Urine RBC 0-1/hpf Urine WBC 1-5/hpf Ur Squamous Epith Cells 0-1 /hpf Urine Bacteria Many (>30) H Ur Culture Indicated? Specimen cultured SARS-CoV-2 (PCR) Negative Assessment & Plan Assessment & Plan narrative: Assessment: 1. Transient ischemic attack, improving 2. Hx of obstructive CAD requiring 4 stents, unknown distribution, remote 3. Osteoarthritis Plan: 1. Will observe overnight on telemetry, in case there's a missing atrial fibrillation component. Patient admits to sometimes forgetting to take home aspirin 81 mg daily, and this could be contributing to TIA. Will add Plavix 75 mg daily to current regimen, so as to have dual antiplatelet therapy for 21 days. After 21 days, she can then stop Plavix, and continue aspirin 81 mg daily indefinitely. No evidence of interatrial shunt appreciated on echocardiogram from less than 1 year ago. 2. Patient reports this happened 10 years ago. Will continue home atorvastatin 80 mg daily. 3. Has hx of bilateral hip replacement. Denies any active issues. VTE prophylaxis: Heparin 5000 units bid Code: Full code I have utilized all available immediate resources to obtain, update, or review the patient's current medications. Time Spent With Patient Critical Care time: I spent a total of [] minutes of critical care time on this patient's care today; this time is exclusive of procedural time. Quality VTE Deep Vein Thrombosis/Pulmonary Embolism Present on Admission: No MIPS - Admit I confirm the patient?s Advance Care Plan is present, Code status is documented, Surrogate decision maker is in patient?s record [If Yes, STOP here]: Yes
[2021-12-07 16:42] VITALS: BP 139/73; PULSE 79; RESP 15; TEMP 36.9; O2SAT 99
[2021-12-07] MEDS: CLOPIDOGREL 75 MG TABLET PO (17:04)
[2021-12-07 20:20] VITALS: BP 112/55; PULSE 68; RESP 14; TEMP 37.4; O2SAT 96
[2021-12-07] MEDS: HEPARIN 5,000 UNIT/ML VIAL 5000 UNIT SUBCUT (20:33)
[2021-12-07] MEDS: LATANOPROST 0.005% OPHTH 2.5 ML 1 DROPS EYE-BOTH (20:34)
[2021-12-08 00:40] VITALS: BP 107/55; PULSE 71; RESP 12; TEMP 36.9; O2SAT 98
[2021-12-08 05:30] VITALS: BP 111/59; PULSE 67; RESP 14; TEMP 36.7; O2SAT 95
[2021-12-08] MEDS: PANTOPRAZOLE DR 40 MG TABLET PO (05:34)
--- NOTE | 2021-12-08 08:45 | P.DS_ITS ---
History of Present Illness History of Present Illness Date Patient Seen: 12/08/21 Time Patient Seen: 08:45 Date of Onset of Symptoms: 12/08/21 Chief complaint: Stroke Narrative: See H&P dictated yesterday Discharge Providers Provider Date of admission: 12/07/21 12:57 Discharge Date: 12/08/21 Primary care physician: Michael Carmona MD Discharge provider: Michael Carmona MD Summary Hospital Course Discharge Diagnosis: TIA resolved History of CAD Osteoarthritis Hospital Course: TIA. Patient was admitted and was improving from the time that she was normalized. She had an MRI which showed no abnormality. Her telemetry was normal throughout that time and had returned back to normal. Patient was started on Plavix and will continue that. And otherwise seems to be doing well. Will continue aspirin and will follow-up as outpatient. Will most likely need a long-term monitoring for AFib which is most likely cause of her issue. She understands questions answered will call if change follow-up with me next week Coronary artery disease. Stable at this time. No major issue. Continue her atorvastatin in usual medicines Osteoarthritis stable. Status at Discharge Cognitive/behavioral status at discharge: at baseline, oriented Functional status at discharge: uses cane/walker Overall status at discharge: patient is back to baseline Exam Vital Signs (past 8 hours): - 12/08/21 05:30 Temperature 98.1 F Pulse Rate 67 Respiratory Rate 14 Blood Pressure 111/59 L Pulse Oximetry 95 Oxygen Delivery Method Room Air Oxygen Flow Rate 0 Narrative Exam Narrative: Alert female interactive appropriate no acute distress Lungs are clear heart regular rate and rhythm abdomen is soft positive bowel sounds nontender extremities without cyanosis clubbing and [place]. Neurologic exam shows cranial nerves 2 through 12 are intact. Speech is clear. Having no issues with aphasia. Motor is 5/5 reflexes 2+ and symmetric Objective Labs Result Diagrams: 12/07/21 12:13 12/07/21 12:26 Labs: Laboratory Results - last 24 hr 12/07/21 12/07/21 12/07/21 12:13 12:13 12:26 WBC 6.6 RBC 4.01 Hgb 13.2 Hct 37.3 MCV 92.9 MCH 32.9 MCHC 35.4 RDW 13.1 Plt Count 153 Neut % (Auto) 74.0 Lymph % (Auto) 21.3 L [place] % (Auto) 4.2 Eos % (Auto) 0.1 L Baso % (Auto) 0.4 Neut # (Auto) 4900 Lymph # (Auto) 1400 [place] # (Auto) 300 Eos # (Auto) 0 Baso # (Auto) 0 PT 11.8 INR 1.0 APTT 32 Sodium Potassium Chloride Carbon Dioxide BUN Creatinine Estimated GFR BUN/Creatinine Ratio Glucose Calcium Total Bilirubin AST ALT Alkaline Phosphatase Total Creatine Kinase 45 CK-MB (CK-2) TNP CK-MB (CK-2) Rel Index TNP Troponin I < 0.012 Total Protein Albumin Globulin Albumin/Globulin Ratio Urine RBC Urine WBC Ur Squamous Epith Cells Urine Bacteria Ur Culture Indicated? SARS-CoV-2 (PCR) 12/07/21 12/07/21 12/07/21 12:26 12:59 13:26 WBC RBC Hgb Hct MCV MCH MCHC RDW Plt Count Neut % (Auto) Lymph % (Auto) [place] % (Auto) Eos % (Auto) Baso % (Auto) Neut # (Auto) Lymph # (Auto) [place] # (Auto) Eos # (Auto) Baso # (Auto) PT INR APTT Sodium 132 L Potassium 4.0 Chloride 102 Carbon Dioxide 23 BUN 21 H Creatinine 0.57 Estimated GFR > 60.0 BUN/Creatinine Ratio 36.8 H Glucose 102 Calcium 9.0 Total Bilirubin 1.1 AST 28 ALT 17 Alkaline Phosphatase 46 Total Creatine Kinase CK-MB (CK-2) CK-MB (CK-2) Rel Index Troponin I Total Protein 6.5 Albumin 3.9 Globulin 2.6 Albumin/Globulin Ratio 1.5 Urine RBC 0-1/hpf Urine WBC 1-5/hpf Ur Squamous Epith Cells 0-1 /hpf Urine Bacteria Many (>30) H Ur Culture Indicated? Specimen cultured SARS-CoV-2 (PCR) Negative [facility] Medical History (Updated 12/07/21 @ 12:38 by Sonny Powers MD) Chronic left hip pain Gait instability Herniated nucleus pulposus, L4-5 left Lumbosacral radiculopathy at L4 Surgical History H/O bilateral mastectomy History of carpal tunnel surgery History of total left hip arthroplasty Status post total hip replacement, right Family History Father Heart disease Mother Heart disease Social History household members: none occupational status: previously employed Smoking Status: Former smoker alcohol intake: current Discharge Assessment & Plan Assessment and Plan Assessment: TIA appears to be resolved see above. Plan of Treatment: Plavix and follow up with me next week Discharge Plan Discharge Plan Patient Disposition: Home Discharge orders & Medications Prescriptions: New clopidogrel 75 mg Tablet 75 mg PO DAILY Qty: 14 0RF Continued VITAMIN C - (VITAMIN C) 1,000 mg PO Qty: 0 0RF [CALCIUM WITH D] Q DAY Qty: 0 0RF [MOVE FREE WITH GLUCO] Qty: 0 0RF [ISTALOL] Qty: 0 0RF nitroglycerin 0.4 mg tablet, sublingual 0.4 mg SL Q5M PRN (Reason: Chest Pain) 0RF Label Comments: Believes last taken years ago metoprolol tartrate [Lopressor] 50 mg tablet 50 mg PO DAILY 0RF atorvastatin [Lipitor] 80 mg tablet 80 mg PO DAILY 0RF esomeprazole magnesium [Nexium] 40 mg capsule,delayed release(DR/EC) 40 mg PO DAILY 0RF latanoprost [Xalatan] 0.005 % drops 1 drp EYE-BOTH BEDTIME 0RF calcium carbonate [Calcium 600] 600 mg calcium (1,500 mg) tablet 600 mg PO DAILY 0RF cholecalciferol (vitamin D3) 1,000 unit capsule 2,000 unit PO DAILY 0RF ascorbate calcium (vitamin C) 500 mg tablet 500 mg PO DAILY 0RF pyridoxine (vitamin B6) [Vitamin B-6] 100 mg tablet 100 mg PO DAILY 0RF mecobalamin (vitamin B12) 1,000 mcg tablet,disintegrating 1,000 mcg SL DAILY 0RF omega-3 fatty acids [Fish Oil Concentrate] 1,000 mg capsule 1,000 mg PO DAILY 0RF Label Comments: Patient reports she is still taking. multivitamin Tablet 1 tab PO DAILY 0RF aspirin [Aspirin Childrens] 81 mg tablet,chewable 81 mg PO DAILY 0RF glucosamine HCl 500 mg tablet 1,000 mg PO DAILY 0RF folic acid 400 mcg tablet 0.4 mg PO DAILY 0RF Discontinued omeprazole 40 mg capsule,delayed release(DR/EC) 40 mg DAILY 0RF Follow up/Referrals: Michael Carmona MD [Primary Care Provider] - 1 Week Diet/Activity/Treatments Diet: Diet as Tolerated Activity: As tolerated Skin/Wound/Dressing Care Report to your healthcare provider any signs of infection, such as:: chills, fever, night sweats, increased pain, unusual drainage and unusual redness Visit Report/Discharge Packet Instructions: DI for Transient Ischemic Attack Discharge Data Primary Care Provider: Michael Carmona Attending Provider: Que Foley VTE Deep Vein Thrombosis/Pulmonary Embolism Present on Admission: No
[2021-12-08 08:56] VITALS: BP 122/55; PULSE 79; RESP 18; TEMP 36.9; O2SAT 98
[2021-12-08] MEDS: CALCIUM CARBONATE 600 MG TABLET PO (09:08)
[2021-12-08] MEDS: ASCORBIC ACID 500 MG TABLET PO (09:08)
[2021-12-08] MEDS: ATORVASTATIN 20 MG TABLET 80 MG PO (09:08)
[2021-12-08] MEDS: CLOPIDOGREL 75 MG TABLET PO (09:08)
[2021-12-08] MEDS: ASPIRIN EC 81 MG TABLET PO (09:08)
[2021-12-08] MEDS: CHOLECALCIFEROL (VITAMIN D3) 1,000 UNIT TABLET 2000 UNIT PO (09:08)
[2021-12-08] MEDS: METOPROLOL IR 50 MG TABLET PO (09:08)
[2021-12-08] MEDS: PYRIDOXINE (VITAMIN B6) 50 MG TABLET 100 MG PO (09:08)
[2021-12-08] MEDS: HEPARIN 5,000 UNIT/ML VIAL 5000 UNIT SUBCUT (09:09)
--- NOTE | 2021-12-08 10:32 | PC.NURSE ---
Assess-Patients ciwa score is 0. She denies aphagia, weakness, or visual issues. She is independent in the room and gets herself up to the bathroom. Bri also denies pain. Waiting for her ride so that she can go home. IV has been taken out and patient is dressed. Delio PATEL went over her paperwork.
--- NOTE | 2021-12-08 11:29 | CM.DANOTE ---
Patient is an 86 yo female who was admitted on 12/07/21 for CVA vs TIA r/o. Pt has [facility] and [employer] for insurance and her PCP is Dr. Michael Carmona. EMR was reviewed. Per MD, pt with hx of TIA, hip replacement, mastectomy and admitted for TIA/CVA r/o. Per RN, pt was able to ambulate with walker to the bathroom SBA due to initial dizziness. Per MD, pt medically stable to d/c home today with no identified barriers to discharge. SW met bedside with pt and explained role right after RN provided pt with her discharge paperwork. Pt confirms she still lives in [facility] alone but has local supportive Dtr nearby. Pt denies any hx of HH or SNF and was admitted for similar back in January 2021 about a year ago and was able to d/c home with no needs. Pt remains independent with ADLs and typically does not use DME for ambulation. Pt denies any concerns with discharge today and is very happy to be going home and confirms her Dtr is giving her a ride home today later this morning. Plan: Patient to d/c home via Dtr POV and no identified barriers to discharge. TITO Fraser Discharge Planning/Care Management CM Discharge Assessment Start: 12/08/21 11:27 Freq: Status: Active Protocol: Document 12/08/21 11:27 BF (Rec: 12/08/21 11:29 BF [id number]) Discharge Planning Assessment Assigned Senior Gis Analyst TITO Hsu DPOA/Assigned Designee Name Dtandrea Gunderson Contact Information [phone] Advance Directives? Yes: POLST Advance Directives on File No History Provided By Patient,Medical Record Has Patient been admitted in last 30 No days? Comment Last admission about a year ago in January 2021 for similar and discharged home Prior Living Arrangements House Household Members none Type of transporation used prior to Relies on Others admit Independent with ADL's Yes Is patient alert and oriented? Yes Needs Assistance With Home Chores / Shopping Caregiver for Another No Barriers to Discharge No Discharge Plan Home Transportation Arrangement Dtr to transport home today Referrals Initiated None needed Whiteboard Updated in Patient Room with Yes name and ext. # of Senior Gis Analyst Review Status In Process Please Provide Date Initial DC 12/08/21 Assessment Was Performed Next Review Type Continued Stay Review
== END 2021-12-08 11:00 | disposition home or self-care (01) ==
LOC: ED 12:55 → AC 12:59
PROVIDERS: Admitting Provider Student in an Organized Health Care Education/Training Program; Emergency Provider Emergency Medicine; PCP Family Medicine; Referring Provider Emergency Medicine; Visit Provider Family Medicine
DX: G45.9 Transient cerebral ischemic attack, unspecified (principal); R51.9 Headache, unspecified; R29.701 NIHSS score 1; I25.10 Atherosclerotic heart disease of native coronary artery without angina pectoris; M19.90 Unspecified osteoarthritis, unspecified site; Z87.891 Personal history of nicotine dependence; Z20.822 Contact with and (suspected) exposure to COVID-19
CPT/HCPCS: 36415; 70450; 70496; 70498; 70551; 80053; 81003; 81015; 82550; 82962; 84484; 85025; 85610; 85730; 87077; 87086; 87186; 87635; 93005; 96372; 99285; C9803; G0378; J1644

== ENCOUNTER → 2023-03-18 16:21 | Outpatient (CLI) | payer MEDICARE, OTHER, SELFPAY ==
--- NOTE | 2023-03-18 16:22 | DI.MRI.S_ITS ---
PROCEDURE: MR HEAD/BRAIN WO/W CON INDICATIONS: TRANSIENT CEREBRAL ISCHEMIC ATTACK TECHNIQUE: Noncontrast axial T1 spin echo, axial T2 fast spin echo, sagittal and axial FLAIR, coronal T2 fast spin echo, axial gradient echo, axial diffusion and ADC through the brain. After the administration of contrast, axial and coronal and sagittal 3D VIBE or T1 spin echo with fat saturation through the brain. COMPARISON: None. FINDINGS: Image quality: Excellent. CSF Spaces: Basal cisterns are patent. No extra-axial fluid collections. The ventricles and sulci are prominent, consistent with moderate to severe global volume loss. Brain: No midline shift. No intracranial bleeds or masses. There are T2/FLAIR hyperintensities within the deep and periventricular white matter, nonspecific and likely representing chronic microvascular ischemic change. Prominent perivascular spaces. No abnormal intracranial enhancement. The brainstem appears normal. Diffusion-weighted images demonstrate no acute ischemic insults. No chronic ischemic insults. Normal intravascular flow voids are present. Skull and face: Calvarial marrow is normal in signal. Bilateral lens replacements. Otherwise, the orbits are unremarkable. Sinuses: Sinuses and mastoids appear clear. IMPRESSION: . 1. No acute infarct or other acute intracranial process 2. Moderate to severe global volume loss and chronic microvascular ischemic change. Dictated by: Ji Juan M.D. on 03/19/2023 at 14:57 Approved by: Ji Juan M.D. on 03/19/2023 at 15:01
--- NOTE | 2023-03-18 16:24 | DI.US.S_ITS ---
PROCEDURE: US CAROTID DOPPLER BI INDICATIONS: TRANSIENT CEREBRAL ISCHEMIC ATTACK TECHNIQUE: Color and pulse Doppler interrogation was performed of both carotid systems, with image documentation and velocity measurements. COMPARISON: [facility], [place], CAROTID ARTERY DOPPLER BILAT, 12/27/2010, 10:38. FINDINGS: Stenosis calculations are based on SRU (Society of Radiologists in Ultrasound) criteria. Right side: Brachial blood pressure: 140/78 mm Hg. Common carotid artery peak systolic velocity: 53 cm/sec. Internal carotid artery peak systolic velocity: 100 cm/sec. Internal carotid artery end diastolic velocity: 27 cm/sec. External carotid artery peak systolic velocity: 58 cm/sec. ICA/CCA peak systolic ratio: 1.9 . Woods scale imaging description: Mild plaque Percent internal carotid artery stenosis: Less than 50 percent . Vertebral artery: Flow direction is antegrade. Left side: Brachial blood pressure: 131/65 mm Hg. Common carotid artery peak systolic velocity: 58 cm/sec. Internal carotid artery peak systolic velocity: 79 cm/sec. Internal carotid artery end diastolic velocity: 22 cm/sec. External carotid artery peak systolic velocity: 50 a cm/sec. ICA/CCA peak systolic ratio: 1.4 . Woods scale imaging description: Mild plaque Percent internal carotid artery stenosis: Less than 50 percent . Vertebral artery: Flow direction is antegrade. Two left thyroid nodules are present, largest measuring 2.3 centimeters. IMPRESSION: 1. Less than 50 percent stenosis of the internal carotid arteries bilaterally. 2. Two thyroid nodules incidentally visualized. Further evaluation with dedicated thyroid ultrasound recommended. Dictated by: Lorenzo Johnson M.D. on 03/19/2023 at 16:35 Approved by: Lorenzo Johnson M.D. on 03/19/2023 at 16:41
== END ==
PROVIDERS: PCP Family Medicine; Referring Provider Family Medicine; Visit Provider Family Medicine
DX: G45.9 Transient cerebral ischemic attack, unspecified (principal); E04.2 Nontoxic multinodular goiter
CPT/HCPCS: 70553; 93880; A9579

== ENCOUNTER 2023-08-12 15:54 | Inpatient (IN) | payer MEDICARE, OTHER, SELFPAY ==
[2023-08-12] VITALS (10 sets, daily range): BP systolic 140–167; BP diastolic 70–96; PULSE 78–84; RESP 14–28; TEMP 36.6; O2SAT 95–99; BMI 23.2
--- NOTE | 2023-08-12 16:38 | ED_ITS ---
HPI - Neuro Symptoms/Deficit General Chief Complaint: Neuro Symptoms/Deficit Stated Complaint: stroke Time Seen by Provider: 08/12/23 16:36 Source: patient and EMS Mode of arrival: EMS Limitations: no limitations History of Present Illness HPI Narrative: This is an 88-year-old female with history of prior TIA x2, dyslipidemia on aspirin 324 mg daily and Plavix daily. Patient states she woke up this morning she felt fine but did not talk or interact with any 12:11 a.m. when she went to talk to people who are cleaning out her gutters. She could not she states her speech was all off. She states she did not talk to anyone interact with anyone look in the mirror at that point but was noted to have facial droop. She did not appreciate any obvious numbness or tingling of her extremities but states she is a little bit in her left fingertips in her right arm seems weak. She does not appreciate any weakness in her legs felt like she can ambulate normally. No headache, no vision changes no chest pain or shortness of breath denies nausea or vomiting no issues with bowel movements or urination or loss of bowel or bladder control. She states she is on Lipitor daily, Plavix and aspirin 324 mg daily. She is not had her doses today. No prior surgeries. No known drug allergies. No tobacco, 1 alcoholic drink weekly. No recreational drugs. Dr. Carmona is her primary care. On Anticoagulants: Yes (plavix (not taken today)) Related Data Home Medications Medication Instructions Recorded Confirmed [CALCIUM WITH D] Q DAY ##0 08/03/06 01/18/20 [ISTALOL] ##0 08/03/06 01/18/20 [MOVE FREE WITH GLUCO] ##0 08/03/06 01/18/20 ascorbate calcium (vitamin C) 500 500 mg PO DAILY 08/17/19 08/12/23 mg tablet atorvastatin 80 mg tablet (Lipitor) 80 mg PO DAILY 08/17/19 08/12/23 calcium carbonate 600 mg calcium 600 mg PO DAILY 08/17/19 08/12/23 (1,500 mg) tablet (Calcium) cholecalciferol (vitamin D3) 25 2,000 unit PO DAILY 08/17/19 08/12/23 mcg (1,000 unit) capsule esomeprazole magnesium 40 mg 40 mg PO DAILY 08/17/19 08/12/23 capsule,delayed release (Nexium) folic acid 400 mcg tablet 0.4 mg PO DAILY 08/17/19 08/12/23 glucosamine HCl 500 mg tablet 1,000 mg PO DAILY 08/17/19 12/07/21 latanoprost 0.005 % eye drops 1 drp EYE-BOTH BEDTIME 08/17/19 08/12/23 (Xalatan) mecobalamin (vitamin B12) 1,000 1,000 mcg sublingual DAILY 08/17/19 08/12/23 mcg disintegrating tablet,sublingual multivitamin 1 tab PO DAILY 08/17/19 08/12/23 nitroglycerin 0.4 mg sublingual 0.4 mg sublingual Q5M PRN Chest 08/17/19 08/12/23 tablet Pain pyridoxine (vitamin B6) 100 mg 100 mg PO DAILY 08/17/19 08/12/23 tablet (Vitamin B-6) aspirin 325 mg tablet 325 mg PO DAILY 08/12/23 08/12/23 Previous Rx's Medication Instructions Recorded clopidogrel 75 mg tablet 75 mg PO DAILY #14 tabs 12/08/21 Allergies Allergy/AdvReac Type Severity Reaction Status Date / Time No Known Allergies Allergy Unknown Verified 08/12/23 16:02 [NO KNOWN ALLERGIES] Review of Systems Review of Systems ROS Unobtainable: All systems reviewed & are unremarkable except as noted in HPI and below Hematologic/Lymphatic On Anticoagulants: Yes (plavix (not taken today)) Patient History Medical History (Updated 08/12/23 @ 18:06 by Marly Solares DO) Lumbosacral radiculopathy at L4 Herniated nucleus pulposus, L4-5 left Gait instability Chronic left hip pain Surgical History History of carpal tunnel surgery 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, 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 Family History Father Heart disease Mother Heart disease Social History household members: none occupational status: previously employed Smoking Status: Former smoker alcohol intake: current Smoking Status: Former smoker alcohol intake frequency: 0-2 drinks per day Alcohol type: wine Substance Use Type: does not use Exam Narrative Exam Narrative: GEN: well nourished, well appearing female, alert and oriented x 3, patient appears to be in mild distress. HEENT: Atraumatic, pupils are equal round reactive to light, extraocular movements are intact, nares are clear, TMs are clear with no fluid, there is no conjunctival pallor. Throat is clear without any exudates, erythema, tonsillar enlargement or uvular deviation, positive for facial droop. HEART: Regular rate and rhythm without murmur, clicks, rubs. Pulses are equal in upper and lower extremities LUNGS:Lungs clear to auscultation, no wheezes, rales, crackles, chest moves symmetrically ABD:bowel sounds normal, soft, non-tender, no guarding, rebound, rigidity, no masses noted, no hepatosplenomegaly :No CVA tenderness MSCL: Non-tender, no muscle atrophy, patient has drift on right, none on the left otherwise, full range of motion NEURO:CN 2-12 intact, sensation normal, finger nose finger test normal with left patient has some difficulty on the right, heel bird test normal, patient has some diffuse arthralgias but no aphasia. Initial Vital Signs Initial Vital Signs: Vital Signs Temperature 97.8 F 08/12/23 16:00 Pulse Rate 84 08/12/23 16:00 Respiratory Rate 14 08/12/23 16:00 Blood Pressure 140/83 08/12/23 16:00 Pulse Oximetry 96 08/12/23 16:00 Oxygen Delivery Method Room Air 08/12/23 16:00 Scores NIH Stroke Scale Level of Conciousness: Alert, keenly responsive Ask month/age: Answers both questions correctly. Open/close eyes, close hand: Performs both tasks correctly Best gaze horizontal: Normal Visual aranda: No visual loss Facial palsy: Minor paralysis, flattened nasolabial fold, asymmetry on smiling Left arm drift: No drift for full 10 sec Right arm drift: Drifts down, not to bed Left leg drift: No drift for full 5 sec Right leg drift: No drift for full 5 sec Limb ataxia: Present in one limb Sensory on face/arms/legs: Normal, no sensory loss Best language: No aphasia, normal Dysarthria: Mild to mod,some slurring Extinction or inattention: No abnormality Total NIH Stroke scale score: 4 Course Orders Ordered: ED Orders 08/12/23 16:00 Complete Blood Count AUTO DIFF Stat Comprehensive Metabolic Panel Stat Ethanol (ETOH) Stat PTT Partial Thromboplastin Emir Stat Prothrombin Time INR Stat Troponin & CK Cardiac Panel Stat 08/12/23 16:46 CT Stroke Stat 08/12/23 16:47 CT angio head and neck Stat 08/12/23 17:00 Urine Drug Screen, Rapid Stat 08/12/23 17:04 Urinalysis and Microscopic Stat Acetaminophen (Acetaminophen 325 Mg Tablet) 650 mg PO Q6H PRN PRN Reason: Fever/Mild Pain (1-3) Aspirin (Aspirin 81 Mg Chew Tab) 81 mg PO DAILY [facility] Atorvastatin Calcium (Atorvastatin 20 Mg Tablet) 80 mg PO DAILY [facility] Calcium Carbonate (Calcium Carbonate 500 Mg Tab) 1,000 mg PO Q4HR PRN PRN Reason: Dyspepsia Clopidogrel Bisulfate (Clopidogrel 75 Mg Tablet) 75 mg PO DAILY [facility] Enoxaparin Sodium (Enoxaparin 40 Mg/0.4 Ml Syringe) 40 mg SUBCUT DAILY [facility] Metoprolol Tartrate (Metoprolol Ir 50 Mg Tablet) 50 mg PO DAILY [facility] Naloxone HCl (Naloxone 0.4 Mg/Ml Vial) 0.2 mg IV Q2MIN PRN PRN Reason: Opiate Reversal Pantoprazole Sodium (Pantoprazole Dr 40 Mg Tablet) 40 mg PO 0600 [facility] Discontinued Medications Aspirin (Aspirin 81 Mg Chew Tab) 324 mg PO NOW ONE Stop: 08/12/23 18:02 Last Admin: 08/12/23 18:14 Dose: 324 mg Documented By: DON Vital Signs Vital signs: Vital Signs - 8 hr 08/12/23 16:00 08/12/23 16:02 08/12/23 16:03 Temperature 97.8 F Pulse Rate 84 84 84 Respiratory Rate 14 27 H 21 Blood Pressure 140/83 Pulse Oximetry 96 95 97 Oxygen Delivery Method Room Air Room Air 08/12/23 16:03 08/12/23 16:30 08/12/23 16:30 Temperature Pulse Rate 84 Respiratory Rate 28 H Blood Pressure 140/83 167/96 H Pulse Oximetry 97 Oxygen Delivery Method Room Air 08/12/23 17:13 08/12/23 17:14 08/12/23 17:21 Temperature Pulse Rate 81 80 79 Respiratory Rate 15 17 20 Blood Pressure Pulse Oximetry 99 99 98 Oxygen Delivery Method Room Air Room Air 08/12/23 17:21 08/12/23 17:30 08/12/23 17:47 Temperature Pulse Rate 79 78 Respiratory Rate 21 26 H Blood Pressure 159/79 H Pulse Oximetry 99 96 Oxygen Delivery Method Room Air Room Air 08/12/23 17:47 08/12/23 18:00 08/12/23 18:00 Temperature Pulse Rate 80 Respiratory Rate 20 Blood Pressure 156/73 H 142/70 H Pulse Oximetry 96 Oxygen Delivery Method Room Air MDM - Neuro Symptoms/Deficit Lab Data 08/12/23 16:00 08/12/23 16:00 Labs: Lab Results 08/12/23 08/12/23 Range/Units 16:00 17:00 WBC 6.7 (4.5-11.0) X10^3/uL RBC 4.53 (4.0-5.2) X10^6/uL Hgb 14.4 (12.0-16.0) g/dL Hct 42.0 (36-46) % MCV 92.7 (80-100) fL MCH 31.7 (26-34) PG MCHC 34.2 (30-36) % RDW 13.6 (11.6-14.8) % Plt Count 182 (150-400) X10^3/uL Neut % (Auto) 58.2 (50-75) % Lymph % (Auto) 34.4 (25-40) % [place] % (Auto) 5.8 (3-14) % Eos % (Auto) 1.1 L (2-4) % Baso % (Auto) 0.5 (0-2) % Neut # (Auto) 3900 (2038-6213) /uL Lymph # (Auto) 2300 (4687-8109) /uL [place] # (Auto) 400 (0-900) /uL Eos # (Auto) 100 (0-450) /uL Baso # (Auto) 0 (0-100) /uL PT 11.4 (9.4-12.5) SECONDS INR 1.0 (0.9-1.3) APTT 31 (25.1-36.5) SECONDS Sodium 139 (137-145) mmol/L Potassium 3.8 (3.4-5.1) mmol/L Chloride 104 (98-107) mmol/L Carbon Dioxide 27 (22-32) mmol/L BUN 15 (7-17) mg/dL Creatinine 0.46 L (0.52-1.04) mg/dL Estimated GFR > 60 (>60) mL/min BUN/Creatinine Ratio 32.6 H (6-22) Glucose 94 (80-110) mg/dL Calcium 10.1 (8.4-10.2) mg/dL Total Bilirubin 1.1 (0.2-1.3) mg/dL AST 34 (14-36) IU/L ALT 34 (<35) IU/L Alkaline Phosphatase 73 (38-126) U/L Total Creatine Kinase 54 (30-135) U/L Troponin I < 0.012 (0.01-0.034) ng/mL Total Protein 7.3 (6.3-8.2) g/dL Albumin 4.4 (3.5-5.0) g/dL Globulin 2.9 (1.7-4.1) g/dL Albumin/Globulin Ratio 1.5 (1.0-2.8) U Opiates 300ng/mL cut Negative (Negative) Ur Oxycodone Screen Negative (Negative) Urine Methadone Screen Negative (Negative) Ur Barbiturates Screen Negative (Negative) U Tricyclic Antidepress Negative (Negative) Ur Phencyclidine Scrn Negative (Negative) Ur Amphetamines Screen Negative (Negative) U Methamphetamines Scrn Negative (Negative) Ur MDMA Scrn (Ecstasy) Negative (Negative) U Benzodiazepines Scrn Negative (Negative) Urine Cocaine Screen Negative (Negative) U Marijuana (THC) Screen Negative (Negative) Ethyl Alcohol < 10 ( - 10) mg/dL ECG Data Attestation: I personally reviewed and interpreted this ECG as follows: Prior ECG tracings: available for review Interpretation: Sinus rhythm rate 83 [place] 156 QRS 84 QTC of 451. No acute ST elevation patient does have some depression in lateral leads. Patient has prior from 12/07/2022 which shows depression in lateral leads. No elevation appreciated. MDM Narrative Medical decision making narrative: 88-year-old female with stroke last known normal was last night when she fell asleep. She woke up at 8:00 a.m. but did not interact or look in the mirror she is obvious speech changes and facial droop she did not notice still she started talking with the individuals at 11:00 a.m.. Patient is far outside of tPA window possible code IR. She has not NIH of 4 does have a little bit of ataxia and weakness with her right upper extremity. Is on aspirin Plavix has not had her doses today. Initial head CT and CT angio show no acute change, hemodynamic significant stenosis or aneurysm intracranially or in the neck. Labs show CBC is negative coags are negative, CMP is negative with a negative troponin. No acute changes to sodium. UDS is negative, ETOH is negative. Spoke with Dr. Prieto accepts for admission we will give aspirin. Plan for stroke workup. Discussed findings with patient she is agreeable. She does note she is DNR/DNI does not wish for any heroic interventions. But is okay with limited medical treatment. Stroke Core Measures Exclusion Criteria TPA in CVA: Symptom Onset >3 or 4.5 Hours Discharge Plan Departure Patient Disposition: Admitted As Inpatient Clinical Impression: CVA (cerebral vascular accident) Admit Date/Time: 08/12/23 18:09 Admit Provider: Abigail Prieto
--- NOTE | 2023-08-12 16:46 | DI.CT.S_ITS ---
PROCEDURE: CT STROKE INDICATIONS: left arm weakness, facial droop, TECHNIQUE: Noncontrast 4.5 mm thick angled axial sections acquired from the foramen magnum to the vertex, with coronal reformats. For radiation dose reduction, the following was used: automated exposure control, adjustment of mA and/or kV according to patient size. COMPARISON: [facility], CT, CT STROKE, 12/07/2021, 12:01. FINDINGS: Image quality: Excellent. CSF spaces: Basal cisterns are patent. No extra-axial fluid collections. The ventricles are symmetric in size and shape. Brain: No intracranial bleeds or masses. There is cerebral volume loss for age, with resultant ventricular and sulcal prominence. There are periventricular and deep white matter chronic small vessel ischemic changes. There is intracranial internal carotid artery atherosclerosis. Skull and face: Calvarium and visualized facial bones appear intact, without suspicious lesions. Sinuses: Visualized sinuses and mastoids are clear. IMPRESSION: 1. No CT evidence of acute intracranial abnormalities. No significant changes from prior study. No contraindication to IV tPA therapy. Findings were reported to Dr. Solares in the ER at 5:32 p.m. On 08/12/2023. This study fulfills neurological imaging criteria for inclusion or exclusion of acute stroke therapies based on available published neurological guidelines. Dictated by: Johan Crane M.D. on 08/12/2023 at 17:30 Approved by: Johan Crane M.D. on 08/12/2023 at 17:32
--- NOTE | 2023-08-12 16:47 | DI.CT.S_ITS ---
PROCEDURE: CT ANGIO HEAD AND NECK INDICATIONS: left arm weakness, facial droop, TECHNIQUE: After the administration of intravenous contrast, 1 mm thick sections acquired from the aortic arch through the [place]. 3-dimensional jncxffe-cmbczcpre-frrjtlngqe (MIP) and/or volume rendering reformats were acquired of the central intracranial vasculature and neck separately. For radiation dose reduction, the following was used: automated exposure control, adjustment of mA and/or kV according to patient size. COMPARISON: [facility], CT, CT ANGIO HEAD AND NECK, 12/07/2021, 12:01. FINDINGS: Image quality: Diagnostic. BRAIN: CSF spaces: Ventricles are normal in size and shape. Basal cisterns are patent. No extra-axial fluid collections. Brain: No significant abnormality of the brain can be seen. No area of abnormal intracranial enhancement. Skull and face: Calvarium and facial bones appear intact, without suspicious lesions. Orbits appear normal. Sinuses: Sinuses and mastoids are clear. HEAD CT ANGIOGRAPHY: Anterior circulation: Intracranial internal carotid arteries are normal in size and flow. The flow within the paired anterior cerebral arteries is normal and symmetric. The flow within the middle cerebral arteries is normal and symmetric. The anterior communicating artery is seen. No aneurysms are seen. Posterior circulation: Visualized portions of the vertebral arteries demonstrate normal caliber, and join to form a normal appearing basilar artery. Flow within the posterior cerebral arteries is normal and symmetric. No aneurysms are seen. NECK CT ANGIOGRAPHY: Carotid system: The great vessels demonstrate a conventional anatomy as they arise from the aortic arch. The origins of the common carotid arteries appear patent. The common carotid arteries demonstrate normal caliber and courses. The bifurcation regions are both widely patent. The internal carotid arteries demonstrate normal calibers and courses. Posterior circulation: The origins of the vertebral arteries both appear widely patent. The more superior extracranial portions of both vertebral arteries also demonstrate normal courses and calibers. They join to form a normal appearing basilar artery. Soft tissues: Visualized neck soft tissues demonstrate no suspicious abnormalities. Enlarged left thyroid lobe with hypodense nodule is seen. Bones: No suspicious bony lesions. Visualized cervical spine appears normally aligned. IMPRESSION: 1. No area of abnormal intracranial enhancement. 2. No hemodynamically significant stenosis or aneurysm is seen in the intracranial circulation. 3. No hemodynamically significant stenosis is seen in bilateral neck arteries. Any quantitative measurements of stenosis were performed using NASCET criteria. Dictated by: Johan Crane M.D. on 08/12/2023 at 17:32 Approved by: Johan Crane M.D. on 08/12/2023 at 17:35
[2023-08-12 16:55] LABS: Add Manual Diff / Slide Review NO; Basophils Absolute Auto 0 /uL (0-100); Basophils Percent Auto 0.5 % (0-2); Eosinophils Absolute Auto 100 /uL (0-450); Eosinophils Percent Auto 1.1 % (2-4); Hemoglobin 14.4 g/dL (12.0-16.0); Lymphocytes Absolute Auto 2300 /uL (1100-4500); Lymphocytes Percent Auto 34.4 % (25-40); Mean Corpuscular HGB Conc 34.2 % (30-36); Mean Corpuscular Hemoglobin 31.7 PG (26-34); Mean Corpuscular Volume 92.7 fL (80-100); Monocytes Absolute Auto 400 /uL (0-900); Monocytes Percent Auto 5.8 % (3-14); Neutrophils Absolute Auto 3900 /uL (1500-7000); Neutrophils Percent Auto 58.2 % (50-75); Platelet Count 182 X10^3/uL (150-400); Red Blood Cell Count 4.53 X10^6/uL (4.0-5.2); Red Cell Distribution Width 13.6 % (11.6-14.8); White Blood Cell Count 6.7 X10^3/uL (4.5-11.0)
[2023-08-12 16:57] LABS: Prothrombin Time 11.4 SECONDS (9.4-12.5)
[2023-08-12 17:00] LABS: PTT Partial Thromboplastin Tim 31 SECONDS (25.1-36.5)
[2023-08-12 17:04] LABS: Alanine Aminotransferase 34 IU/L (<35); Albumin 4.4 g/dL (3.5-5.0); Albumin Globulin Ratio 1.5 (1.0-2.8); Alkaline Phosphatase 73 U/L (38-126); Aspartate Aminotransferase 34 IU/L (14-36); BUN Creatinine Ratio 32.6 (6-22); Bilirubin Total 1.1 mg/dL (0.2-1.3); Blood Urea Nitrogen 15 mg/dL (7-17); Calcium 10.1 mg/dL (8.4-10.2); Carbon Dioxide 27 mmol/L (22-32); Chloride 104 mmol/L (98-107); Creatine Kinase 54 U/L (30-135); Estimated Glomerular Filt Rate > 60 mL/min (>60); Ethanol (ETOH) < 10 mg/dL; Globulin 2.9 g/dL (1.7-4.1); Glucose 94 mg/dL (80-110); HEMOLYSIS < 15 (0-50); Potassium 3.8 mmol/L (3.4-5.1); Sodium 139 mmol/L (137-145); Total Protein 7.3 g/dL (6.3-8.2)
[2023-08-12 17:16] LABS: UR Morphine/Opiate cutoff 300 Negative (Negative); Urine Amphetamines Negative (Negative); Urine Barbiturates Negative (Negative); Urine Benzodiazepines Negative (Negative); Urine Cocaine Negative (Negative); Urine MDMA Negative (Negative); Urine Methadone Negative (Negative); Urine Methamphetamines Negative (Negative); Urine Oxycodone Negative (Negative); Urine Phencyclidine Negative (Negative); Urine Tetrahydrocannabinol Negative (Negative); Urine Tricyclic Antidepressant Negative (Negative)
[2023-08-12 17:18] LABS: Troponin I < 0.012 ng/mL (0.01-0.034)
--- NOTE | 2023-08-12 17:50 | PC.NURSE ---
Pt came back from CT and Pt states her left AC IV is painful to the touch. The IV flushes and draws slowly with minimal pain, pt describes tenderness. I informed pt we could take it out if she would like; pt refuses at this time and states she will let me know if it gets worse.
[2023-08-12] MEDS: ASPIRIN 81 MG CHEW TAB 324 MG PO (18:14)
--- NOTE | 2023-08-12 18:50 | DI.ECHO.S_ITS ---
[facility] +---------+ [facility] +---------+ : : [address] [place] : : : : [id number] : : : : Phone: [phone] Echocardiogram Report + + :Name: JESSICA MENDOZA Study Date: 08/13/2023 Height: 60 in : :[facility] ReadingLocation: Weight: 119 lb : : Gender: Female BSA: 1.5 m2 : :: 1935 Age: 88 yrs BP: 102/56 mmHg: :Reason For Study: CVA : :Ordering Physician: DION, : :JOSHUA Performed By: Annabelle Royal : :Referring: JOSHUA ASHLEY : + + Interpretation Summary The ejection fraction is estimated to be 55-60%. Diastolic function could not be accurately assessed due to contradictory data. The right ventricle is normal in size and function. There is trace aortic regurgitation. Pulmonary artery pressures cannot be estimated because of the lack of a measurable TR jet velocity but the IVC suggests a CVP of around 3 mmHg. Compared to the prior study dated 01/08/2021, no significant change. Procedure: A two-dimensional transthoracic echocardiogram with color flow and Doppler was performed. The study quality was technically adequate. Comparison is made with the echocardiogram of 01/08/2021. The patient was in sinus rhythm with heart rates between 61-77 bpm during the exam. Left Ventricle: The left ventricle is normal in size and wall thickness. The ejection fraction is estimated to be 55-60%. Diastolic function could not be accurately assessed due to contradictory data. Right Ventricle: The right ventricle is normal in size and function. Atria: The left atrial size is normal. The right atrium is normal in size. There is no Doppler evidence for an interatrial shunt. Mitral Valve: The mitral valve leaflets appear mildly thickened, but open well. There is trace mitral regurgitation. Aortic Valve: The aortic valve is trileaflet. The aortic valve opens well. The aortic valve is slightly calcified. There is no aortic valve stenosis. There is trace aortic regurgitation. Tricuspid Valve: The tricuspid valve is normal in structure and function. There is a trace or physiologic amount of tricuspid regurgitation. Pulmonary artery pressures cannot be estimated because of the lack of a measurable TR jet velocity but the IVC suggests a CVP of around 3 mmHg. Pulmonic Valve: The pulmonic valve leaflets are thin and pliable; valve motion is normal. There is mild pulmonic regurgitation. Great Vessels: The aortic root is normal size. The dimensions of the ascending aorta are normal. The IVC is of normal diameter and collapses greater than 50% with a sniff. This suggests a low right atrial pressure of 3 mm Hg. Pericardium/ Pleura There is a trivial pericardial effusion noted. There is no pleural effusion. MMode/2D Measurements & Calculations LVIDd: 3.4 cm LVOT diam: 2.0 cm LVIDs: 2.7 cm Ao root diam: 3.0 cm FS: 20.3 % asc Aorta Diam: 3.2 cm EPSS: 0.88 cm Ao Arch Diam (Prox Trans): 2.2 cm IVSd: 0.69 cm LVPWd: 0.92 cm LV harrell. diameter/BSA (cm/m^2): 2.3 LV sys. diameter/BSA (cm/m^2): 1.8 LA A2 area: 14.1 cm2 RA long axis: 4.6 cm LA A4 area: 14.1 cm2 RA area: 12.3 cm2 LA length (vol): 5.0 cm RA vol: 28.3 ml LA vol: 33.4 ml RA : 18.9 ml/m2 LA vol index: 22.3 ml/m2 IVC diam: 1.0 cm RVD1 (basal): 2.6 cm RVD2 (mid): 2.2 cm TAPSE: 1.7 cm Doppler Measurements & Calculations Ao V2 max: 125.6 cm/sec LVOT Max Sebastian: 103.0 cm/sec Ao V2 mean: 85.2 cm/sec LV V1 max P.2 mmHg Ao max P.3 mmHg LV V1 VTI: 21.7 cm Ao mean P.2 mmHg LARA(I,D): 2.6 cm2 Ao V2 VTI: 26.6 cm LARA(V,D): 2.6 cm2 sev ratio: 0.82 LARA indexed to BSA (cm^2/m^2): 1.7 MV E max sebastian: 80.2 cm/sec TR max sebastian: 181.0 cm/sec MV A max sebastian: 105.7 cm/sec TR max P.1 mmHg MV E/A: 0.76 PA V2 max: 69.7 cm/sec Med Peak E' Sebastian: 4.7 cm/sec PA V2 mean: 53.3 cm/sec E/E' med: 17.1 PA mean P.2 mmHg Lat Peak E' Sebastian: 6.2 cm/sec PA pr(Accel): 29.3 mmHg E/E' lat: 12.9 E/e' average: 15.0 MV dec time: 0.26 sec SV(ANAYA): 68.2 ml Reading Physician:10:20 AM
[2023-08-12 21:05] LABS: Appearance Urine UA CLEAR; Bilirubin Urine UA NEGATIVE (NEGATIVE); Color Urine UA YELLOW; Glucose Urine UA NEGATIVE (Negative); Ketones Urine UA NEGATIVE (NEGATIVE); Leukocyte Esterase Urine UA TRACE (NEGATIVE); Nitrite Urine UA NEGATIVE (Negative); Occult Blood Urine UA NEGATIVE (Negative); Protein Urine UA NEGATIVE (Negative); Specific Gravity Urine UA <=1.005 (1.000-1.035); Urobilinogen Urine UA 0.2 E.U./dL (0.2)
[2023-08-12 21:19] LABS: pH Urine UA 6.5 (4.5-8.0)
[2023-08-12 21:20] LABS: Bacteria Urine Occasional (0-1); Culture Indicated Urine Cult Not Indicated; RBC Urine None Seen (0-5/HPF); Squamous Epithelial Cell Urine 0-1 /HPF (0-5/HPF); WBC Urine 0-1/HPF (0-5/HPF)
[2023-08-12] MEDS: SODIUM CHLORIDE 0.9% FLUSH 10 ML IV (21:49)
--- NOTE | 2023-08-12 23:12 | CM.MNRNOTE ---
Pt. was admitted by our float RN. Pt. denies any headache, dyspnea, chest pain & other discomfort. C/O insomnia, states I can't sleep this bed is making too much noise. Changed her bed to a tosin bed, will cont. POC & monitor.
[2023-08-13 04:00] VITALS: BP 102/56; PULSE 66; RESP 16; TEMP 36.6; O2SAT 96
[2023-08-13] MEDS: PANTOPRAZOLE DR 40 MG TABLET PO (05:37)
[2023-08-13 08:28] VITALS: BP 113/69; PULSE 67; RESP 19; TEMP 36.4; O2SAT 96
[2023-08-13] MEDS: CLOPIDOGREL 75 MG TABLET PO (08:34)
[2023-08-13] MEDS: ASPIRIN 81 MG CHEW TAB PO (08:34)
[2023-08-13] MEDS: SODIUM CHLORIDE 0.9% FLUSH 10 ML IV ×2 (08:34→20:41)
[2023-08-13] MEDS: ATORVASTATIN 20 MG TABLET 80 MG PO (08:34)
[2023-08-13] MEDS: ENOXAPARIN 40 MG/0.4 ML SYRINGE SUBCUT (08:34)
--- NOTE | 2023-08-13 08:36 | PM.HP.1 ---
History of Present Illness History of Present Illness Date Patient Seen: 08/13/23 Time Patient Seen: 08:36 Date of Onset of Symptoms: 08/12/23 Chief complaint: stroke Narrative: Patient is an 88-year-old female well known to me who presents with acute onset of right facial droop and right arm numbness and weakness. Patient went to sleep Saturday night without any issue woke up to work with the Introhiveor and he noted that she was not talking well in her right face was drooping. She would had no headaches no visual symptoms no chest pain. No nausea no vomiting. She felt like she was feeling okay and then started to notice her hand. At that point she was brought to the emergency room. Patient has a history of both 01/08/2021 having a TIA and 12/07/2021. She was briefly placed on Plavix for a month and then that was discontinued as per neurologist and then had been on Plavix since her TIA 12/07/2021. With no other changes. She is had no complaints and has felt well. No bleeding no pain. Energy level is been good. Patient has a history of coronary artery disease requiring 4 stents many years ago. She is not had any cardiac symptoms since that time. [facility] Medical History (Updated 08/12/23 @ 18:06 by Marly Solares DO) Lumbosacral radiculopathy at L4 Herniated nucleus pulposus, L4-5 left Gait instability Chronic left hip pain Surgical History History of carpal tunnel surgery 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, 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 Family History Father Heart disease Mother Heart disease Social History household members: none occupational status: previously employed Smoking Status: Former smoker alcohol intake: current Meds Home Medications and Allergies Home Medications Medication Instructions Recorded Confirmed Type [CALCIUM WITH D] Q DAY ##0 08/03/06 01/18/20 History [ISTALOL] ##0 08/03/06 01/18/20 History [MOVE FREE WITH GLUCO] ##0 08/03/06 01/18/20 History ascorbate calcium (vitamin C) 500 500 mg PO DAILY 08/17/19 08/12/23 History mg tablet atorvastatin 80 mg tablet (Lipitor) 80 mg PO DAILY 08/17/19 08/12/23 History calcium carbonate 600 mg calcium 600 mg PO DAILY 08/17/19 08/12/23 History (1,500 mg) tablet (Calcium) cholecalciferol (vitamin D3) 25 2,000 unit PO DAILY 08/17/19 08/12/23 History mcg (1,000 unit) capsule esomeprazole magnesium 40 mg 40 mg PO DAILY 08/17/19 08/12/23 History capsule,delayed release (Nexium) folic acid 400 mcg tablet 0.4 mg PO DAILY 08/17/19 08/12/23 History glucosamine HCl 500 mg tablet 1,000 mg PO DAILY 08/17/19 12/07/21 History latanoprost 0.005 % eye drops 1 drp EYE-BOTH BEDTIME 08/17/19 08/12/23 History (Xalatan) mecobalamin (vitamin B12) 1,000 1,000 mcg sublingual DAILY 08/17/19 08/12/23 History mcg disintegrating tablet,sublingual multivitamin 1 tab PO DAILY 08/17/19 08/12/23 History nitroglycerin 0.4 mg sublingual 0.4 mg sublingual Q5M PRN Chest 08/17/19 08/12/23 History tablet Pain pyridoxine (vitamin B6) 100 mg 100 mg PO DAILY 08/17/19 08/12/23 History tablet (Vitamin B-6) clopidogrel 75 mg tablet 75 mg PO DAILY #14 tabs 12/08/21 08/12/23 Rx aspirin 325 mg tablet 325 mg PO DAILY 08/12/23 08/12/23 History Allergies Allergy/AdvReac Type Severity Reaction Status Date / Time No Known Allergies Allergy Unknown Verified 08/12/23 16:02 [NO KNOWN ALLERGIES] Review of Systems Review of Systems Narrative: Negative except as above Exam Vital Signs (past 8 hours): - 08/13/23 04:00 08/13/23 08:28 Temperature 97.8 F 97.6 F Pulse Rate 66 67 Respiratory Rate 16 19 Blood Pressure 102/56 L 113/69 Pulse Oximetry 96 96 Oxygen Flow Rate 0 0 Oxygen Delivery Method Room Air Oxygen Flow Rate 0 Narrative Exam Narrative: Alert elderly female interactive in no acute distress HEENT exam shows pupils are equal and responsive to light shows no masses no erythema. Neck without adenopathy JVD or bruits. Lungs are clear. Heart is regular rate and rhythm without murmurs clicks rubs or gallop. Abdomen is soft positive bowel sounds nontender extremities without cyanosis clubbing edema. Neurologic exam shows right mild facial droop. Tongue appears normal. No other facial nerves appear to be affected. Reflexes are 2+ and symmetric. She has full movement of her arm and hand but she is struggling a little bit with strength on the right side. With 4/5. Otherwise 4+ out of 5 on the rest of her arm and no other changes throughout the body. Sensation is intact. She is alert oriented and struggling some with words Objective Labs 08/12/23 16:00 08/12/23 16:00 Labs: Laboratory Results - last 24 hr 08/12/23 08/12/23 16:00 17:00 WBC 6.7 RBC 4.53 Hgb 14.4 Hct 42.0 MCV 92.7 MCH 31.7 MCHC 34.2 RDW 13.6 Plt Count 182 Neut % (Auto) 58.2 Lymph % (Auto) 34.4 [place] % (Auto) 5.8 Eos % (Auto) 1.1 L Baso % (Auto) 0.5 Neut # (Auto) 3900 Lymph # (Auto) 2300 [place] # (Auto) 400 Eos # (Auto) 100 Baso # (Auto) 0 PT 11.4 INR 1.0 APTT 31 Sodium 139 Potassium 3.8 Chloride 104 Carbon Dioxide 27 BUN 15 Creatinine 0.46 L Estimated GFR > 60 BUN/Creatinine Ratio 32.6 H Glucose 94 Calcium 10.1 Total Bilirubin 1.1 AST 34 ALT 34 Alkaline Phosphatase 73 Total Creatine Kinase 54 Troponin I < 0.012 Total Protein 7.3 Albumin 4.4 Globulin 2.9 Albumin/Globulin Ratio 1.5 Urine Color Yellow Urine Appearance Clear Urine pH 6.5 Ur Specific [place] <=1.005 Urine Protein Negative Urine Glucose (UA) Negative Urine Ketones Negative Urine Occult Blood Negative Urine Nitrate Negative Urine Bilirubin Negative Urine Urobilinogen 0.2 Ur Leukocyte Esterase Trace H Urine RBC None seen Urine WBC 0-1/hpf Ur Squamous Epith Cells 0-1 /hpf Urine Bacteria Occasional (0-1) Ur Culture Indicated? 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 Maybe slightly better through the day. It is unclear certainly it sounds like her facial droop is better. MRI does show a an infarct which appears to be acute in the left precentral gyrus. Echo shows no change. No significant abnormality. Patient had a negative carotid Doppler 03/18/2023 Tele so far has been stable. Expect this is probably coming from atrial fibrillation since we have no other source. At this point will continue PT OT and speech therapy. Appreciate their help. Discussed with maintenance planner. I think she makes an excellent case for stroke rehab. Will discuss with neurologist tomorrow about appropriate medication. She is pretty maxed out on platelet drugs. May need to anticoagulate. This maybe a problem and may not be able to done right away just because of risk for bleed. Will see what they recommend. Patient understands. Questions answered. History of coronary artery disease. Doing well. No major issues. Will continue current medication and follow. Osteoarthritis stable. Will follow. Code status DNR. DVT prophylaxis. On Plavix. Mobile. Will follow. Disposition. Patient will be followed for the next 24-48 hours will be working towards getting acute stroke rehab admission. I think she would be an excellent candidate. Quality VTE Deep Vein Thrombosis/Pulmonary Embolism Present on Admission: No
--- NOTE | 2023-08-13 13:11 | PT.IIE ---
Surgical History (Last Reviewed 08/12/23 @ 17:00 by Marly Solares DO) H/O bilateral mastectomy History of carpal tunnel surgery History of total left hip arthroplasty Status post total hip replacement, right Medical History (Last Reviewed 08/12/23 @ 17:00 by Marly Solares DO) Chronic left hip pain Gait instability Herniated nucleus pulposus, L4-5 left Lumbosacral radiculopathy at L4 Physical Therapy Inpatient Evaluation/Re-Eval M1 PT/OT-IP Prior Functional Status Start: 08/13/23 08:26 Freq: NEEDED Status: Active Protocol: Document 08/13/23 11:55 MB (Rec: 08/13/23 13:10 MB [id number]) Medical Review Prior Functional Status Medical History Reviewed Yes Diet/Fluid Consistency Regular Communication Communicates needs, pt with facial drooping and some challenges with speech as a result Mobility and Gait I, used cane Activities of Daily Living and IADL's I, lives alone in house that has 13 steps to enter and she has no loved ones/friends nearby to assist. Her daughter is in [place]. She is not interested in going to stay with daughter in [place]. Prior Functional Level (Other details) Pt is right handed and right hand affected in stroke. Social History Household Members none Living Arrangements House Number of Floors (Floors) Two Floors Number of Stairs To Enter/Railing? 13 steps with left rail ascend to enter home and then flat, steps to basement but she does not have to go down them Home Environment Standard Height Toilet Home Equipment Front Wheel Walker,Straight Cane Employment Status Retired M2 PT-IP Current Condition Start: 08/13/23 08:26 Freq: NEEDED Status: Active Protocol: Document 08/13/23 11:55 MB (Rec: 08/13/23 13:10 MB [id number]) Physical Therapy Current Condition Current Condition Evaluation Date 08/13/23 Treatment Diagnosis Stroke with right hand trouble , B hand paresthesias and facial droop M3 PT-IP Subjective Start: 08/13/23 08:26 Freq: NEEDED Status: Active Protocol: Document 08/13/23 11:55 MB (Rec: 08/13/23 13:10 MB [id number]) Subjective Physical Therapy Visit Type Type Initial Evaluation Visit Start Time 11:55 Visit Stop Time 12:15 Total Visit Minutes 20 Number of RELATIONSHIP ASSOCIATE Visits 0 Physical Therapy Visit Comments Patient Comments I'm tired. Therapy Pain Assessment Pain Present Pain Present Denied Pain M4 PT-IP Mobility and Gait Start: 08/13/23 08:26 Freq: NEEDED Status: Active Protocol: Document 08/13/23 11:55 MB (Rec: 08/13/23 13:10 MB [id number]) PT-Bed Mobility Assessment Rolling Level of Assist Standby Assistance,1 Person Assistance Supine to Sit Supine to Sit Standby Assistance,1 Person Assistance,Bedrails Scooting Scooting to Edge of Bed Standby Assistance PT-Transfer Assessment Sit to and From Stand Sit to and from Stand Standby Assistance,1 Person Assistance,Use of Upper Extremities Transfers Transfer Destination Toilet Transfer Technique Ambulate with use of rail in BR, superv Transfer Ability Level of Assist Standby Assistance,1 Person Assistance,Use of Upper Extremities Gait Assessment Gait Gait Assistance Required: Contact Guard Assist,1 Person Assist Distance (Feet) 50 Able to Maintain Weight Bearing Status Yes During Gait Assistive Devices Assistive Device Gait Belt,Straight Cane Orthotic/Prosthetic Devices or Brace: No Gait Deviations General Gait Pattern Step-to Gait Factors Limiting Gait Function Factors Limiting Gait Function Poor Balance Comments Gait Comments Pt gait trains several trials with frequent stopping breaks with use of her SPC in her right hand, CGA and evidence of imbalance: 50'x1, 30'x1, 30 'x1, 30'x1, 50'x1, 30'x1, 30' x1. Pt with step-to pattern and she states she needs three points of contact on the floor d/t imbalance. Stair Climbing Assessment Evaluation Level of Assist On Stairs Contact Guard Assistance,1 Person Assistance Devices Stair Climbing Assistive Devices Straight Cane,Left Railing Technique/Endurance Stair Climbing Direction Ascend and Descend Stair Climbing Technique Step Over Step,Step to Step Number of Steps Climbed 3 Query Text: Stair Climbing Set # Repetitions (reps) 3 Comments Stair Climbing Comments Pt carries SPC in one hand and uses left rail ascend and right rail descend. She performs both step-to and step -through gait and requires cues and CGA PT-Balance Assessment Sitting Balance and Reactions Static Sitting Balance Ability Good Dynamic Sitting Balance Ability Good Standing Balance and Reactions Static Standing Balance Ability Fair Dynamic Standing Balance Ability Fair Device Used SPC right hand M5 PT-IP Objective Assessments Start: 08/13/23 08:26 Freq: NEEDED Status: Active Protocol: Document 08/13/23 11:55 MB (Rec: 08/13/23 13:10 MB [id number]) Orientation Orientation/Cognition Level of Alertness Alert Orientation Name,Age,Birthday,Month,Date, Year,Day of Week,Place, Situation Language Function Ability No Deficits Noted Safety Awareness Decreased Safety Awareness Memory Description No Deficits Noted Gross Range of Motion Upper Extremity ROM Impairments Defer to OT Lower Extremity ROM Assessment Within Functional Limits Strength Lower Extremity Strength Assessment Within Functional Limits Coordination Assessment Assessment Coordination Comments Defer to OT given UE issues post-stroke Sensation Assessment Sensation Gross Sensation Left UE Impaired,Right LE Impaired Sensation Description Paresthesia,Tingling M7 PT-IP Assessment and Plan Start: 08/13/23 08:26 Freq: NEEDED Status: Active Protocol: Document 08/13/23 11:55 MB (Rec: 08/13/23 13:10 MB [id number]) PT Summary Assessment and Plan Potential Rehabilitation Potential Excellent Status of Condition at Evaluation Evolving Summary Impairments Balance,Coordination,Sensation ,Bed Mobility,Transfers,Gait, Activity Tolerance Progress Towards Goals Progressing Toward Goals Assessment Summary Pt is a pleasant 88 y/o female who is alert and oriented and who lives at home alone without any support nearby. Her daughter is [place] and she does not wish to d/c there. Pt is I at baseline, drove, and did all of her other ADLs and IADLs. She gait trained with a cane. She has had two TIAs and now presents with facial droop, affected speech, hand paresthesias and motor changes in her right (dominant) hand greater than left. Pt presents with imbalance. Pt an excellent candidate for acute rehab given her diagnosis, functional presentation, multi -therapy discipline needs and prior I functional status and living alone. Goals Bed Mobility Goal Independent Transfer Goal Independent,Cane,Front Wheeled Walker Gait Goal Independent,Cane,Front Wheel Walker Gait Distance 75 Other Goals Pt will ascend and descend 13 steps with rail and mod I. Pt will perform WNLs on standardized balance test to decrease fall risk. Days to Meet Goals 4 Frequency of Treatment Frequency Of Treatment Once a Day Treatment Plan Physical Therapy Treatment Plan Bed Mobility Training,Transfer Training,Gait Training, Therapeutic Exercise,Balance Retraining,Discharge Planning, Neuromuscular Re-ed, Coordination Retraining Weight Bearing Status Weight Bearing Status Weight Bear as Tolerated Recommendations To Nursing Amount of Assist Needed 1 Person Assist Discharge Recommendations PT Discharge Recommendations Acute Rehab Transportation Needs at Discharge Private Vehicle
--- NOTE | 2023-08-13 14:05 | OT.IP.EVAL ---
Past Medical History (Last Reviewed 08/12/23 @ 17:00 by Marly Solares DO) Chronic left hip pain Gait instability Herniated nucleus pulposus, L4-5 left Lumbosacral radiculopathy at L4 Surgical History (Last Reviewed 08/12/23 @ 17:00 by Marly Solares DO) H/O bilateral mastectomy History of carpal tunnel surgery History of total left hip arthroplasty Status post total hip replacement, right Occupational Therapy Inpatient Evaluation/Re-Eval M1 PT/OT-IP Prior Functional Status Start: 08/13/23 14:06 Freq: NEEDED Status: Active Protocol: Document 08/13/23 13:05 [facility] (Rec: 08/13/23 14:37 [facility] [id number]) Medical Review Prior Functional Status Medical History Reviewed Yes Diet/Fluid Consistency Regular Communication Communicates needs, pt with facial drooping and some challenges with speech as a result. Pt also having trouble to get her words out. Mobility and Gait I, used cane Activities of Daily Living and IADL's I, lives alone in house that has 13 steps to enter and she has no loved ones/friends nearby to assist. Her daughter is in [place]. She is not interested in going to stay with daughter in [place]. Prior Functional Level (Other details) Pt is right handed and right hand affected in stroke. Social History Household Members none Living Arrangements House Number of Floors (Floors) Two Floors Number of Stairs To Enter/Railing? 13 steps with left rail ascend to enter home and then flat, steps to basement but she does not have to go down them Home Environment Standard Height Toilet Home Equipment Front Wheel Walker,Straight Cane Employment Status Retired M2 OT-IP Current Condition Start: 08/13/23 14:06 Freq: Status: Active Protocol: Document 08/13/23 13:05 [facility] (Rec: 08/13/23 14:37 [facility] [id number]) Occupational Therapy Current Condition Current Condition Evaluation Date 08/13/23 Treatment Diagnosis CVA Diagnosis Onset Date 08/12/23 M3 OT- IP Subjective and Pain Start: 08/13/23 14:06 Freq: Status: Active Protocol: Document 08/13/23 13:05 [facility] (Rec: 08/13/23 14:37 [facility] [id number]) OT- Subjective Occupational Therapy Visit Type Type Initial Evaluation Visit Start Time 13:05 Visit Stop Time 14:05 Total Visit Minutes 60 Occupational Therapy Visit Comments Patient Comments Pt agreed to get up and wanting to use the bathroom. Patient/Caregiver Goals TO get better and open to going to acute rehab. OT Pain Assessment Pain When Pain Assessed At Rest Pain Present Pain Present Denied Pain M4 OT- IP ADL's Start: 08/13/23 14:06 Freq: Status: Active Protocol: Document 08/13/23 13:05 [facility] (Rec: 08/13/23 14:37 [facility] [id number]) OT [id number]-[id number] General Evaluation Self-Feeding Ability Maximum Assistance Comments OT Self-Feeding Comments Pt not able to use her right hand to eat and has to use her left hand, however per pt that is messy to use her left hand. OT ADL-Grooming Comments OT Grooming Comments Pt needing assist to help incorporate her right hand for needs. OT ADL-Oral Care Comments Oral Care Comments Not performed. OT ADL-Dressing General Eval Lower Body Dressing Ability Moderate Assistance Comments OT Dressing Comments Pt needing MODA to help incorporate her right hand in order to lexii/doff her socks, pt is mainly using her left hand for needs at this time due to right hand weakness and decreased coordination. OT ADL-Toileting General Evaluation Toileting Ability Minimal Assistance Areas Needing Assistance Manage Clothing Comments OT Toileting Comments Pt needing assist to help pull up right side of her brief as her right hand having difficulty with strength and control. OT ADL-Bathing Comments OT Bathing Comments Not performed. M5 OT- IP IADL's Start: 08/13/23 14:06 Freq: Status: Active Protocol: Document 08/13/23 13:05 [facility] (Rec: 08/13/23 14:37 [facility] [id number]) OT-Instrumental Activities of Daily Living Deficits IADL Deficits Identified Deficits Meal Preparation Meal Preparation Comments At this time pt would benefit from assist. Bar Gauger And Lubricator Tender Bar Gauger And Lubricator Tender Comments At this time, pt will benefit from assist. Driving Driving Concerns Identified Regarding Safety M6 OT- IP Functional Cognition Start: 08/13/23 14:06 Freq: Status: Active Protocol: Document 08/13/23 13:05 [facility] (Rec: 08/13/23 14:37 [facility] [id number]) Cognitive Factors Limiting Selfcare Function Cognitive Ability Level of Alertness Alert Patient Orientation Name,Age,Birthday,Month,Date, Year,Day of Week,Place, Situation Attention Span Ability Capable of Focused Attention, Capable of Sustained Attention Ability to Follow Commands Able to Follow One Step Commands Safety Awareness Underestimates Need for Assistance Cognitive Comments Cognitive Assessment Comments Pt able to follow command but at times underestimating her needs and needing reminders for safety. OT- Vision and Hearing OT- Hearing Assessment OT- Hearing Assessment WFL OT- Vision Assessment Visual Attentiveness WFL Occular Pursuits WFL Visual Convergence WFL Vision Assessment Comments Pt states wears driving glasses and that her vision has gotten worse lately. Pt states only drives during the day. Pt having right neglect- to further assess her vision. Pt not able to actively close her right eyelid all the way down at this time. M7 OT- IP Mobility and Balance Start: 08/13/23 14:06 Freq: Status: Active Protocol: Document 08/13/23 13:05 [facility] (Rec: 08/13/23 14:37 [facility] [id number]) OT- Bed Mobility Assessment Sit to Supine Sit to Supine Assist Standby Assistance OT-Transfer Assessment Sit to and From Stand Sit to and from Stand Contact Guard Assistance Transfers Transfer Ability Contact Guard Assistance, Minimal Assistance Technique Transfer Destination Bed,Chair,Toilet Transfer Technique Stand Step Pivot Devices Transfer Assistive Devices Gait Belt,Front Wheeled Walker Comments Mobility Comments CGA to stand and pt able to use SPC to get to the bathroom and also left hand for touching surfaces for balance. On the way out of the bathroom, with cane in right hand tripped herself causing her to loss her balance and needing therapist to prevent her from falling. Suggested to use the FWW and nursing notified as well for increased safety . OT- Balance Assessment Sitting Balance and Reactions Static Sitting Balance Ability Good Dynamic Sitting Balance Ability Fair Standing Balance and Reactions Static Standing Balance Ability Fair Dynamic Standing Balance Ability Fair M8 OT- IP Objective Assessments Start: 08/13/23 14:06 Freq: Status: Active Protocol: Document 08/13/23 13:05 [facility] (Rec: 08/13/23 14:37 [facility] [id number]) OT Gross Range of Motion Upper Extremity Range of Motion Assessment Within Functional Limits OT Strength Upper Extremity Strength Assessment Right Impaired Wrist 3- Hand 1to 2- at right thumb, 3- for extension of fingers OT- Coordination Assessment Upper Extremity Finger to Nose Test Within Functional Limits Comments Coordination Comments Initiating education of FMS for right hand in order to picker tender helper items. Encouraged pt to do AROM in her hand of flexion /extension for movements. OT Sensation Assessment Comments Summary Comments Increased proprioception/ kinesthesia for right hand. M9 OT- IP Assessment and Plan Start: 08/13/23 14:06 Freq: Status: Active Protocol: Document 08/13/23 13:05 [facility] (Rec: 08/13/23 14:37 [facility] [id number]) OT Summary Assessment and Plan Potential Rehabilitation Potential Good Analytic Complexity at Evaluation Moderate Summary OT Impairments Range of Motion,Strength, Balance,Coordination,Sensation ,Functional Mobility,Self- Feeding,Grooming,Dressing, Toileting,Bathing,Toilet Transfers,Shower Transfers, Activity Tolerance Progress Towards Goals Progressing Toward Goals Assessment Summary Pt MOD complexity and main barriers are steps, decreased functional use and strength of right hand, right neglect and would greatly benefit from acute rehab at this time. Pt is very motivated to get better. Goals Self-Feeding Goal Independent Grooming Goal Independent Dressing Goal Independent Toileting Goal Independent Bathing Goal Independent Toilet Transfer Goal Independent Shower Transfer Goal Independent OT-Other Goals Goals based on incorporating of using her right hand for all needs. Days to Meet Goals 20 Frequency of Treatment Frequency Of Treatment Once a Day Treatment Plan OT Treatment Plan ADL Training,Functional Mobility,Patient/Family Education,Discharge Planning Discharge Recommendations OT Discharge Recommendations Acute Rehab Transportation Needs at Discharge Private Vehicle
--- NOTE | 2023-08-13 15:01 | ST.IPSLE ---
Visit Care Team Role Provider Type Marly Solares DO Emergency Provider Physician Referring Provider Specialty: Emergency Medicine Address: [address] [place] [address], [id number] Email: [email or web address] Michael Carmona MD Attending Provider Physician Primary Care Provider Specialty: Family Practice Address: [address] [place] [address], [address], [place], [address] Email: [email or web address] Abigail Prieto MD Admit Provider Physician Other Providers Specialty: Family Practice Address: [address] [place] [address], [address], [place], [address] Email: [email or web address] Past Medical History (Last Reviewed 08/12/23 @ 17:00 by Marly Solares DO) Chronic left hip pain (Medical) Gait instability (Medical) Herniated nucleus pulposus, L4-5 left (Medical) Lumbosacral radiculopathy at L4 (Medical) Speech-Language Pathology Speech/Language Eval ADMINISTRATIVE SERVICES OFFICER Adult Cognitive Linguistic Eval Start: 08/13/23 11:43 Freq: Status: Active Protocol: Document 08/13/23 11:44 MA (Rec: 08/13/23 11:45 MA [id number]) Adult Cognitive Linguistic Evaluation Session Time Visit Start Time 08:45 Visit Stop Time 09:20 Total Visit Minutes 35 Visit Information Visit Number 1 Plan of Care Dates During inpatient stay Referral Referring Provider Dr. Prieto Reason for Referral Difficulties communicating Setting Assessment Location Acute Care Visit Type Note Type Initial evaluation Next Note Type Next Note Type Treatment Note Patient Information Identification Type Name Patient History Per H&P: This is an 88-year- old female with history of prior TIA x2, dyslipidemia on aspirin 324 mg daily and Plavix daily. Patient states she woke up this morning she felt fine but did not talk or interact with any 12:11 a.m. when she went to talk to people who are cleaning out her gutters. She could not she states her speech was all off. She states she did not talk to anyone interact with anyone look in the mirror at that point but was noted to have facial droop. She did not appreciate any obvious numbness or tingling of her extremities but states she is a little bit in her left fingertips in her right arm seems weak. She does not appreciate any weakness in her legs felt like she can ambulate normally. No headache, no vision changes no chest pain or shortness of breath denies nausea or vomiting no issues with bowel movements or urination or loss of bowel or bladder control. She states she is on Lipitor daily, Plavix and aspirin 324 mg daily. She is not had her doses today. No prior surgeries. No known drug allergies. No tobacco, 1 alcoholic drink weekly. No recreational drugs. Dr. Carmona is her primary care. PMHx significant for: Lumbosacral radiculopathy at L4 Herniated nucleus pulposus, L4 -5 left Gait instability Chronic left hip pain Pt had a CT completed 08/12/23 with the following: IMPRESSION : 1. No CT evidence of acute intracranial abnormalities. No significant changes from prior study. No contraindication to IV tPA therapy. 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 Age-related volume loss and moderate to severe small vessel ischemic change. Pt referred for ST evaluation d/t nursing reporting Pt with speech complaints, specifically Pt stating Mouth is just not working. Nurse reports Pt with no observed swallowing difficulties. Subjective Patient Report Pt sitting upright in chair in room. Pt awake, alert and agreeable to evaluation. Pt reports I know what I want to say, it's clear in my head, but garbage comes out. Pt also describes her speech as muffled and slow. Mental Status Alert,Responsive,Cooperative Assessment Oral Motor Examination Completed Yes Results Oral motor exam completed. Pt with slight right sided weakness with lingual retraction.Pt with slight lingual and labial weakness, slow lingual ROM, adequate labial ROM. Pt with natural dentition, good condition. Informal Assessment Receptive Language Normal Yes Receptive Language Impairment(s) Following 2-step commands Expressive Language Normal Yes Pragmatic Language Normal Yes Speech Normal No Speech Impairment(s) Imprecise articulation,Slow speech rate Cognition Normal Yes Findings/Results Language Function Mildly impaired Findings Pt presents with muld dysarthria R47.1. ST informally assessed speech/ language. Pt completed automatic speech tasks WFL, scored 15/15 on BIMS, object recognition WFL, word finding WFL, Pt able to follow 2 step directions. Pt with clear vocal quality. Pt appeared about 100% intelligible, however speech characterized by occasional imprecise articulation, slightly reduced rate. Pt with slightly reduced diadochokinetic (DDK) rate. Cognitive Communication Deficits Self-awareness of Cognitive- Predictive awareness (able to Communication Deficits predict problem; impact of impairments) Prognosis Prognosis Good Based on Cognitive status Plan of Care Speech-Language Treatment Yes Frequency Daily while inpatient Patient/Caregiver Education Described results of evaluation,Patient expressed understanding of evaluation Short Term Goals STG1Pt will participate in oral motor speech tasks to improve lingual and labial strength, ROM and motility for articulation with min cues. STG2 Pt will utilize compensatory strategies of over articulation and increased rate with min cues. Nursing Home Goals LTG1 Pt will improve intelligibility of speech for functional communication.
[2023-08-13 16:00] VITALS: BP 142/69; PULSE 72; RESP 17; TEMP 36.2; O2SAT 98
--- NOTE | 2023-08-13 16:12 | CM.DANOTE ---
DCP Assessment NOte Patient is a 88yo F here following stroke. PCP Edilma Philippe Payer Medicare and for life DIRECTOR OF EMPLOYER SERVICES reviewed [facility]. Per provider, likely will need either SNF or acute rehab. Per PT/OT, rec acute rehab. DIRECTOR OF EMPLOYER SERVICES [place] Car[place] [facility]. open to reviewing ref. (p [phone]/f [phone]) DIRECTOR OF EMPLOYER SERVICES lvm with Santino at [facility] acute rehab (p [phone]/f [phone]) DIRECTOR OF EMPLOYER SERVICES entered room and introduced self and role. Patient sitting up in bed. Patient lives alone indep in [place]. Drives at baseline and uses a cane. Pt DPOA is dtr Jalyn (p [phone]) and she lives in [place]. pt sister Marcia lives in [place]. Agreeable to acute rehab. Agreeable to [place] [facility] Concerned about getting some things from her home first but says sister can likely get some stuff for her and transport her to [facility]. DIRECTOR OF EMPLOYER SERVICES faxed initial ref to Carri [place] [facility] [place] including H&P, med list, face sheet, PT/OT eval. Plan: patient will likely dc to acute rehab when medically stable pending facility acceptance. CM team will continue to follow closely. TITO Mcclain Discharge Planning/Care Management Advanced directive, confirm from FAMILY Start: 08/12/23 19:02 Freq: Q24H Status: Active Protocol: Document 08/12/23 21:58 MP (Rec: 08/12/23 22:01 MP [id number]) Co-signed By Lee Ann Walker RN Advance Directive, confirm on record Time 21:59 Person contacted pt. Copy received No CM Discharge Assessment Start: 08/13/23 16:09 Freq: Status: Active Protocol: Document 08/13/23 16:09 SL (Rec: 08/13/23 16:12 SL [id number]) Discharge Planning Assessment Assigned Artillery Officer TITO Luna DPMAEVE/Assigned Designee Name Jalyn Hua (daughter) Contact Information [phone] Advance Directives? Yes: POLST Advance Directives on File No History Provided By Patient,Medical Record Prior Living Arrangements House Household Members none Type of transporation used prior to Drives own vehicle admit Independent with ADL's Yes Is patient alert and oriented? Yes Comment acute inpt rehab Discharge Plan Inpatient Rehab Unit Transportation Arrangement Dtr to transport home today Referrals Initiated Other Additional Comment ref sent to Carri at [facility] [place] Whiteboard Updated in Patient Room with Yes name and ext. # of Artillery Officer Review Status In Process Next Review Type Continued Stay Review
--- NOTE | 2023-08-13 18:50 | DI.MRI.S_ITS ---
PROCEDURE: MR HEAD/BRAIN WO CON INDICATIONS: CVA TECHNIQUE: Non-contrast axial T1 spin echo, axial T2 fast spin echo, sagittal and axial FLAIR, coronal T2 fast spin echo, axial gradient echo, axial diffusion and ADC through the brain. COMPARISON: [facility], CT, CT STROKE, 08/12/2023, 17:05. [facility], CT, CT ANGIO HEAD AND NECK, 08/12/2023, 17:05. [facility], MR, MR HEAD/BRAIN WO/W CON, 03/18/2023, 16:29. FINDINGS: Image quality: Excellent. CSF spaces: Ventricles appear symmetric in size and shape. Basal cisterns are patent. No extra-axial fluid collections. Brain: No intracranial bleeds or mass effects. There is cerebral volume loss for age. There are moderate to severe periventricular and deep white matter chronic small vessel ischemic changes. Brainstem appears normal. Diffusion-weighted images demonstrate restricted water diffusion consistent with acute infarct involving the cortical ribbon of the left precentral gyrus. There is associated cytotoxic edema noted on the FLAIR imaging. No chronic ischemic insults. Normal intravascular flow voids are present. Skull and face: Calvarial bone marrow is normal in signal. Orbits are normal. Sinuses: Sinuses and mastoids are clear. 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 Age-related volume loss and moderate to severe small vessel ischemic change. Dictated by: Sandeep Manriquez M.D. on 08/13/2023 at 10:30 Approved by: Sandeep Manriquez M.D. on 08/13/2023 at 10:34
[2023-08-13 20:00] VITALS: BP 137/85; PULSE 71; RESP 16; TEMP 35.7; O2SAT 96
[2023-08-13 23:23] VITALS: BP 136/71; PULSE 71; RESP 16; TEMP 36.2; O2SAT 97
[2023-08-14] VITALS (9 sets, daily range): BP systolic 106–185; BP diastolic 59–93; PULSE 66–80; RESP 16; TEMP 36–36.7; O2SAT 92–97
[2023-08-14] MEDS: PANTOPRAZOLE DR 40 MG TABLET PO (05:15)
[2023-08-14] MEDS: ASPIRIN 81 MG CHEW TAB PO (08:43)
[2023-08-14] MEDS: ATORVASTATIN 20 MG TABLET 80 MG PO (08:43)
[2023-08-14] MEDS: CLOPIDOGREL 75 MG TABLET PO (08:43)
[2023-08-14] MEDS: ENOXAPARIN 40 MG/0.4 ML SYRINGE SUBCUT (08:45)
[2023-08-14] MEDS: SODIUM CHLORIDE 0.9% FLUSH 10 ML IV ×2 (08:46→22:21)
--- NOTE | 2023-08-14 12:12 | ST.IPTN ---
Visit Care Team Role Provider Type Marly Solares DO Emergency Provider Physician Referring Provider Address: [address] [place] [address], [address] Michael Carmona MD Attending Provider Physician Primary Care Provider Address: [address] [place] [address], [address], [place], [address] Abigail Prieto MD Admit Provider Physician Other Providers Address: [address] [place] [address], [address], [place], [address] REFRACTORY PRODUCTS SUPERVISOR Treatment Note REFRACTORY PRODUCTS SUPERVISOR Treatment Note Start: 08/14/23 11:55 Freq: Status: Active Protocol: Document 08/14/23 11:55 JOAN (Rec: 08/14/23 12:12 JOAN [id number]) Speech Pathology Treatment Note Session Time Visit Start Time 09:35 Visit Stop Time 10:15 Total Visit Minutes 40 Visit Information Visit Number 2 Plan of Care Dates During inpatient stay Setting Treatment Setting Acute Care Visit Type Note Type Initial Evaluation Next Note Type Next Note Type Treatment Note General Information Patient History Per H&P: This is an 88-year- old female with history of prior TIA x2, dyslipidemia on aspirin 324 mg daily and Plavix daily. Patient states she woke up this morning she felt fine but did not talk or interact with any 12:11 a.m. when she went to talk to people who are cleaning out her gutters. She could not she states her speech was all off. She states she did not talk to anyone interact with anyone look in the mirror at that point but was noted to have facial droop. She did not appreciate any obvious numbness or tingling of her extremities but states she is a little bit in her left fingertips in her right arm seems weak. She does not appreciate any weakness in her legs felt like she can ambulate normally. No headache, no vision changes no chest pain or shortness of breath denies nausea or vomiting no issues with bowel movements or urination or loss of bowel or bladder control. She states she is on Lipitor daily, Plavix and aspirin 324 mg daily. She is not had her doses today. No prior surgeries. No known drug allergies. No tobacco, 1 alcoholic drink weekly. No recreational drugs. Dr. Carmona is her primary care. PMHx significant for: Lumbosacral radiculopathy at L4 Herniated nucleus pulposus, L4 -5 left Gait instability Chronic left hip pain Pt had a CT completed 08/12/23 with the following: IMPRESSION : 1. No CT evidence of acute intracranial abnormalities. No significant changes from prior study. No contraindication to IV tPA therapy. 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 Age-related volume loss and moderate to severe small vessel ischemic change. Pt referred for ST evaluation d/t nursing reporting Pt with speech complaints, specifically Pt stating Mouth is just not working. Nurse reports Pt with no observed swallowing difficulties. Subjective Observations/Patient Presentation Pt sitting upright in bed. Pt awake, alert and agreeable to therapy. Pt reports she doesn' t think her speech has gotten worse. Chief Complaint(s) Speech Patient/Caregiver Compliance with Home Excellent Exercise Program Objective Short Term Goals STG1Pt will participate in oral motor speech tasks to improve lingual and labial strength, ROM and motility for articulation with min cues. STG2 Pt will utilize compensatory strategies of over articulation and increased rate with min cues. Baking Assistant Goals LTG1 Pt will improve intelligibility of speech for functional communication. Treatment Activities Oral motor exercises, dysarthria speaking compensatory strategies, speaking exercises Assessment Patient Response to Treatment Excellent Rehab Potential Excellent Impairments Identified Speech Assessment of Overall Progress Improving Assessment of Improvement ST reviewed and provided Pt with several educational handouts/home exercise program , specifically oral motor exercises and speaking exercises. ST encouraged Pt to complete exercises 2-3x/day 10x. Oral motor exercises included lingual/labial/buccal strengthening strengthening and ROM. ST educated Pt on dysarthria speaking strategies , specifically over articulating and slowing rate. Pt previously reported in evaluation slow speech rate, however speech rate appeared WFL during session with Pt stating she has been slowing down for people to understand her. ST educated Pt on what speech intelligibility is and that she is 100% intelligible. Nursing also reported she can fully understand Pt speech. However, speech continues to sound slightly slurred. Pt utilized speaking strategy of slow rate and over articulation with use of functional phrases in order to promote independence and carryover. Pt independently utilized speaking strategies with functional phrases. ST provided Pt tongue twisters exercise to assist with speech deficits. Pt completed 3/[address] to continue per POC. Reviewed with Patient Progress Being Made,Home Exercise Program Patient/Caregiver Understanding Excellent
--- NOTE | 2023-08-14 14:05 | PT.IPTN ---
Current Diagnoses Cerebral infarction, unspecified (08/12/23) Physical Therapy Treatment Note M2 PT-IP Current Condition Start: 08/13/23 08:26 Freq: NEEDED Status: Active Protocol: Document 08/13/23 11:55 MB (Rec: 08/13/23 13:10 MB [id number]) Physical Therapy Current Condition Current Condition Evaluation Date 08/13/23 Treatment Diagnosis Stroke with right hand trouble , B hand paresthesias and facial droop M3 PT-IP Subjective Start: 08/13/23 08:26 Freq: NEEDED Status: Active Protocol: Document 08/14/23 14:05 AB (Rec: 08/14/23 15:22 AB [id number]) Subjective Physical Therapy Visit Type Type Treatment Note Visit Start Time 14:05 Visit Stop Time 14:42 Total Visit Minutes 37 Number of JOINERY MACHINIST Visits 0 Therapy Pain Assessment Pain Present Pain Present Denied Pain M4 PT-IP Mobility and Gait Start: 08/13/23 08:26 Freq: NEEDED Status: Active Protocol: Document 08/14/23 14:05 AB (Rec: 08/14/23 15:22 AB [id number]) PT-Transfer Assessment Sit to and From Stand Sit to and from Stand Contact Guard Assistance,1 Person Assistance,Use of Upper Extremities Equipment Transfer Assistive Device Gait Belt,Straight Cane Orthotic/Prosthetic Devices or Brace: No Transfers Transfer Destination Toilet Transfer Technique ambulated Transfer Ability Level of Assist Contact Guard Assistance,1 Person Assistance,Use of Upper Extremities Comments Mobility Comments pt sitting on EOB and requesting to use the toilet. nurse in room to assist pt but PT took over pt's care. pt completed sit to stand from EOB CGA and ambulated to the toilet using SPC CGA. required assist with hygiene care and brief management. completed sit to stand using grab bar CGA and ambulated to the sink using SPC CGA. pt able to stand and complete handwashing CGA. pt ambulated to the chair using SPC CGA to min A. pt presents with unsteady gait with (+) LOB to the R requiring min A for recovery. completed standing balance activities: increase awareness of COG, single leg stance using SPC with 5 sec hold: min A to mod A required, weight shifting. pt completed ambulation in room again with cues for balance/weight shifting and SPC use/sequencing 50 ft x 2 CGA to min A. required max cues. pt with slight confusion and needs increase time to process instructions. pt agreed to sit up on the chair. positioned on the chair. call light and table placed within reach. informed nurse that pt needs a chair alarm. Gait Assessment Gait Gait Assistance Required: Contact Guard Assist,Minimum Assistance Distance (Feet) 50 Able to Maintain Weight Bearing Status Yes During Gait Assistive Devices Assistive Device Gait Belt,Straight Cane Orthotic/Prosthetic Devices or Brace: No Gait Deviations General Gait Pattern Antalgic,Decreased Stride Length,Decreased Feet Clearance,Lateral Trunk Lean Factors Limiting Gait Function Factors Limiting Gait Function Decreased Activity Tolerance, Decreased Strength,Difficulty Following Directions, Incoordination,Poor Balance, Poor Safety Awareness M5 PT-IP Objective Assessments Start: 08/13/23 08:26 Freq: NEEDED Status: Active Protocol: Document 08/13/23 11:55 MB (Rec: 08/13/23 13:10 MB [id number]) Orientation Orientation/Cognition Level of Alertness Alert Orientation Name,Age,Birthday,Month,Date, Year,Day of Week,Place, Situation Language Function Ability No Deficits Noted Safety Awareness Decreased Safety Awareness Memory Description No Deficits Noted Gross Range of Motion Upper Extremity ROM Impairments Defer to OT Lower Extremity ROM Assessment Within Functional Limits Strength Lower Extremity Strength Assessment Within Functional Limits Coordination Assessment Assessment Coordination Comments Defer to OT given UE issues post-stroke Sensation Assessment Sensation Gross Sensation Left UE Impaired,Right LE Impaired Sensation Description Paresthesia,Tingling M6 PT-IP Treatment Start: 08/13/23 08:26 Freq: NEEDED Status: Active Protocol: Document 08/14/23 14:05 AB (Rec: 08/14/23 15:22 AB [id number]) Physical Therapy Treatment Education Education Provided Safety M7 PT-IP Assessment and Plan Start: 08/13/23 08:26 Freq: NEEDED Status: Active Protocol: Document 08/14/23 14:05 AB (Rec: 08/14/23 15:22 AB [id number]) PT Summary Assessment and Plan Potential Rehabilitation Potential Good Summary Impairments ROM,Strength,Balance, Coordination,Cognition,Bed Mobility,Transfers,Gait, Activity Tolerance Assessment Summary pt requiring CGA with ambulation using SPC but requiring max cues for safety. pt with (+) LOB requiring CGA to min A for recovery. pt with recent CVA presenting with R sided weakness affecting mobility and will benefit from acute rehab to improve overall stregnth and function. Goals Bed Mobility Goal Independent Transfer Goal Independent,Cane Gait Goal Independent,Cane Gait Distance 75 Other Goals Pt will ascend and descend 13 steps with rail and mod I. Pt will perform WNLs on standardized balance test to decrease fall risk. Days to Meet Goals 10 Frequency of Treatment Frequency Of Treatment Once a Day Treatment Plan Physical Therapy Treatment Plan Bed Mobility Training,Transfer Training,Gait Training, Therapeutic Exercise,Balance Retraining,Discharge Planning, Neuromuscular Re-ed, Coordination Retraining Recommendations To Nursing Amount of Assist Needed 1 Person Assist Discharge Recommendations PT Discharge Recommendations Acute Rehab Transportation Needs at Discharge Private Vehicle
--- NOTE | 2023-08-14 16:00 | OT.IP.TRT ---
Current Diagnoses Cerebral infarction, unspecified (08/12/23) Occupational Therapy Treatment Note M2 OT-IP Current Condition Start: 08/13/23 14:06 Freq: Status: Active Protocol: Document 08/13/23 13:05 [facility] (Rec: 08/13/23 14:37 [facility] [id number]) Occupational Therapy Current Condition Current Condition Evaluation Date 08/13/23 Treatment Diagnosis CVA Diagnosis Onset Date 08/12/23 M3 OT- IP Subjective and Pain Start: 08/13/23 14:06 Freq: Status: Active Protocol: Document 08/14/23 16:07 [facility] (Rec: 08/14/23 16:20 [facility] [id number]) OT- Subjective Occupational Therapy Visit Type Type Treatment Note Visit Start Time 15:30 Visit Stop Time 16:08 Total Visit Minutes 38 Occupational Therapy Visit Comments Patient Comments Pt not wanting to shower at this time as waiting for her family to come , but agreed to do cognitive and FMS. Patient/Caregiver Goals TO go to acute rehab. OT Pain Assessment Pain When Pain Assessed At Rest Pain Present Pain Present Denied Pain M4 OT- IP ADL's Start: 08/13/23 14:06 Freq: Status: Active Protocol: Document 08/13/23 13:05 [facility] (Rec: 08/13/23 14:37 [facility] [id number]) OT KYK-[id number]-[id number] General Evaluation Self-Feeding Ability Maximum Assistance Comments OT Self-Feeding Comments Pt not able to use her right hand to eat and has to use her left hand. OT ADL-Grooming Comments OT Grooming Comments Pt needing assist to help incooperate her right hand for needs. OT ADL-Oral Care Comments Oral Care Comments Not performed. OT ADL-Dressing General Eval Lower Body Dressing Ability Moderate Assistance Comments OT Dressing Comments Pt needing MODA to help incorporate her right hand in order to lexii/doff her socks, pt is mainly using her left hand for needs at this time due to right hand weakness and decreased coordination. OT ADL-Toileting General Evaluation Toileting Ability Minimal Assistance Areas Needing Assistance Manage Clothing Comments OT Toileting Comments Pt needing assist to help pull up right side of her brief as her right hand having difficulty with strength and control. OT ADL-Bathing Comments OT Bathing Comments Not performed. M5 OT- IP IADL's Start: 08/13/23 14:06 Freq: Status: Active Protocol: Document 08/13/23 13:05 [facility] (Rec: 08/13/23 14:37 [facility] [id number]) OT-Instrumental Activities of Daily Living Deficits IADL Deficits Identified Deficits Meal Preparation Meal Preparation Comments At this time pt would benefit from assist. Life Advisor Life Advisor Comments At this time, pt will benefit from assist. Driving Driving Concerns Identified Regarding Safety M6 OT- IP Functional Cognition Start: 08/13/23 14:06 Freq: Status: Active Protocol: Document 08/14/23 16:07 [facility] (Rec: 08/14/23 16:20 [facility] [id number]) Cognitive Factors Limiting Selfcare Function Cognitive Ability Level of Alertness Alert Patient Orientation Name,Age,Birthday,Month,Date, Year,Day of Week,Place, Situation Attention Span Ability Capable of Focused Attention, Capable of Sustained Attention Ability to Follow Commands Able to Follow Multi-Step Commands Cognitive Tests SLUMS Pt scored 27/30 on the SLUMS which implies normal cognition . Pt not able to draw the hour hands correctly after time given and able to recall 4/5 objects after time read. Pt needing increased time to complete the assessment. Cognitive Comments Cognitive Assessment Comments Pt able to answer home safety questions appropriately and also able to recall items in her house when her grandson called about picking up items for him to bring her for rehab .Able to write a list with pt for items needed for rehab. Went go over what to expect and questions to ask for pt while in acute rehab. OT- Vision and Hearing OT- Vision Assessment Vision Assessment Comments Pt still able to close her right eye better when closing both eyes at the same time but still not able to wink her right eye on its own. M7 OT- IP Mobility and Balance Start: 08/13/23 14:06 Freq: Status: Active Protocol: Document 08/13/23 13:05 [facility] (Rec: 08/13/23 14:37 [facility] [id number]) OT- Bed Mobility Assessment Sit to Supine Sit to Supine Assist Standby Assistance OT-Transfer Assessment Sit to and From Stand Sit to and from Stand Contact Guard Assistance Transfers Transfer Ability Contact Guard Assistance, Minimal Assistance Technique Transfer Destination Bed,Chair,Toilet Transfer Technique Stand Step Pivot Devices Transfer Assistive Devices Gait Belt,Front Wheeled Walker Comments Mobility Comments CGA to stand and pt able to use SPC to get to the bathroom and also left hand for touching surfaces for balance. On the way out of the bathroom, with cane in right hand tripped herself causing her to loss her balance and needing therapist to prevent her from falling. Suggested to use the FWW and nursing notified as well for increased safety . OT- Balance Assessment Sitting Balance and Reactions Static Sitting Balance Ability Good Dynamic Sitting Balance Ability Fair Standing Balance and Reactions Static Standing Balance Ability Fair Dynamic Standing Balance Ability Fair M9 OT- IP Assessment and Plan Start: 08/13/23 14:06 Freq: Status: Active Protocol: Document 08/14/23 16:07 [facility] (Rec: 08/14/23 16:20 [facility] [id number]) OT Summary Assessment and Plan Potential Rehabilitation Potential Excellent Analytic Complexity at Evaluation Moderate Summary OT Impairments Range of Motion,Strength, Balance,Coordination,Sensation ,Functional Mobility,Self- Feeding,Grooming,Dressing, Toileting,Bathing,Toilet Transfers,Shower Transfers, Activity Tolerance Progress Towards Goals Progressing Toward Goals Assessment Summary Pt today noted trace movements with her right thumb and move active movement of her right index finger and able to write a little after taping the pen on her hand. Pt scored 27/30 on the SLUMS which implies normal for her cognition. Pt is an excellent candidate for acute rehab and is very motivated to get better. Goals Self-Feeding Goal Independent Grooming Goal Independent Dressing Goal Independent Toileting Goal Independent Bathing Goal Independent Toilet Transfer Goal Independent Shower Transfer Goal Independent OT-Other Goals Goals based on incorporating of using her right hand for all needs. Days to Meet Goals 20 Frequency of Treatment Frequency Of Treatment Once a Day Treatment Plan OT Treatment Plan ADL Training,Functional Mobility,Patient/Family Education,Discharge Planning Discharge Recommendations OT Discharge Recommendations Acute Rehab Transportation Needs at Discharge Private Vehicle
--- NOTE | 2023-08-14 18:49 | PM.PN.1 ---
Subjective Subjective Date Patient Seen: 08/14/23 Time Patient Seen: 08:30 Interval history: Patient feeling about the same. With no significant new changes. Energy level has been good. No complaints or problems. Feels about the same. Still weak in the right hand stool having trouble with speech. No other changes Exam Vital Signs (past 8 hours): - 08/14/23 12:00 08/14/23 16:00 08/14/23 17:50 Temperature 98.0 F 98.1 F 98.1 F Pulse Rate 73 72 70 Respiratory Rate 16 16 16 Blood Pressure 132/74 134/78 134/78 Pulse Oximetry 97 97 97 Oxygen Delivery Method Room Air Oxygen Flow Rate 0 Narrative Exam Narrative: Alert female in no acute distress. Lungs are clear heart is regular rate and rhythm abdomen is soft positive bowel sounds nontender. Neurologic exam shows slight improvement in facial droop on the right speaking I think more clearly and still has right handed weakness but otherwise no abnormality. Objective Labs 08/12/23 16:00 08/12/23 16:00 [facility] Medical History (Updated 08/12/23 @ 18:06 by Marly Solares DO) Lumbosacral radiculopathy at L4 Herniated nucleus pulposus, L4-5 left Gait instability Chronic left hip pain Surgical History History of carpal tunnel surgery 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, 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 Family History Father Heart disease Mother Heart disease Social History household members: none occupational status: previously employed Smoking Status: Former smoker alcohol intake: current Assessment & Plan Assessment & Plan narrative: 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 Does not seem to be arm. Maybe slightly better today. Overall stable. PTOT speech therapy all feel that she is a candidate for stroke therapy. Which hopefully will happen tomorrow. Discussed with consult. Not a good time to anticoagulate secondary to current stroke. Probably AFib but we are not seeing any evidence of that. Whether or not down the road we consider anticoagulation will need to discuss with remedial masseur. May need to have an implantable monitor. Will also discuss with 2nd opinion neurologist. But at this point would not change treatment. Continue Plavix and aspirin. History of coronary artery disease. Stable. No change. History of hypertension. Stable. Osteoarthritis. No issue. Code status DNR. DVT prophylaxis on Plavix. Disposition doing well stable at least. Will continue current evaluation hope to transfer tomorrow to stroke rehab 55 minutes spent with the patient consult nursing social service dictation orders Quality VTE Deep Vein Thrombosis/Pulmonary Embolism Present on Admission: No
[2023-08-15 04:00] VITALS: BP 123/64; PULSE 72; RESP 16; TEMP 36.1; O2SAT 97
[2023-08-15] MEDS: PANTOPRAZOLE DR 40 MG TABLET PO (06:35)
[2023-08-15 08:00] VITALS: BP 131/67; PULSE 68; RESP 16; TEMP 36.7; O2SAT 95
[2023-08-15] MEDS: CLOPIDOGREL 75 MG TABLET PO (09:28)
[2023-08-15] MEDS: ENOXAPARIN 40 MG/0.4 ML SYRINGE SUBCUT (09:28)
[2023-08-15] MEDS: SODIUM CHLORIDE 0.9% FLUSH 10 ML IV (09:28)
[2023-08-15] MEDS: ASPIRIN 81 MG CHEW TAB PO (09:28)
[2023-08-15] MEDS: ATORVASTATIN 20 MG TABLET 80 MG PO (09:28)
--- NOTE | 2023-08-15 10:17 | ST.IPTN ---
Visit Care Team Role Provider Type Marly Solares DO Emergency Provider Physician Referring Provider Address: [address] [place] [address], [id number] Michael Carmona MD Attending Provider Physician Primary Care Provider Address: [address] [place] [address], [address], [place], [address] Abigail Prieto MD Admit Provider Physician Other Providers Address: [address] [place] [address], [address], [place], [address] EVENTS ASSOCIATE Treatment Note EVENTS ASSOCIATE Treatment Note Start: 08/14/23 11:55 Freq: Status: Active Protocol: Document 08/15/23 10:10 JOAN (Rec: 08/15/23 10:16 [facility] [id number]) Speech Pathology Treatment Note Session Time Visit Start Time 09:30 Visit Stop Time 10:00 Total Visit Minutes 30 Visit Information Visit Number 3 Plan of Care Dates During inpatient stay Setting Treatment Setting Acute Care Visit Type Note Type Treatment Note Next Note Type Next Note Type Treatment Note General Information Patient History Per H&P: This is an 88-year- old female with history of prior TIA x2, dyslipidemia on aspirin 324 mg daily and Plavix daily. Patient states she woke up this morning she felt fine but did not talk or interact with any 12:11 a.m. when she went to talk to people who are cleaning out her gutters. She could not she states her speech was all off. She states she did not talk to anyone interact with anyone look in the mirror at that point but was noted to have facial droop. She did not appreciate any obvious numbness or tingling of her extremities but states she is a little bit in her left fingertips in her right arm seems weak. She does not appreciate any weakness in her legs felt like she can ambulate normally. No headache, no vision changes no chest pain or shortness of breath denies nausea or vomiting no issues with bowel movements or urination or loss of bowel or bladder control. She states she is on Lipitor daily, Plavix and aspirin 324 mg daily. She is not had her doses today. No prior surgeries. No known drug allergies. No tobacco, 1 alcoholic drink weekly. No recreational drugs. Dr. Carmona is her primary care. PMHx significant for: Lumbosacral radiculopathy at L4 Herniated nucleus pulposus, L4 -5 left Gait instability Chronic left hip pain Pt had a CT completed 08/12/23 with the following: IMPRESSION : 1. No CT evidence of acute intracranial abnormalities. No significant changes from prior study. No contraindication to IV tPA therapy. 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 Age-related volume loss and moderate to severe small vessel ischemic change. Pt referred for ST evaluation d/t nursing reporting Pt with speech complaints, specifically Pt stating Mouth is just not working. Nurse reports Pt with no observed swallowing difficulties. Subjective Observations/Patient Presentation Pt sitting upright in bed. Pt awake, alert and agreeable to therapy. Pt reports others have told her that her speech sounds a lot better today. Pt states her family/friends have told her when talking to her on the phone they can understand everything she is saying. Chief Complaint(s) Speech Patient/Caregiver Compliance with Home Excellent Exercise Program Objective Short Term Goals STG1Pt will participate in oral motor speech tasks to improve lingual and labial strength, ROM and motility for articulation with min cues. STG2 Pt will utilize compensatory strategies of over articulation and increased rate with min cues. Industrial Design Intern Goals LTG1 Pt will improve intelligibility of speech for functional communication. Treatment Activities Oral motor exercises, dysarthria speaking compensatory strategies, speech exercises Assessment Patient Response to Treatment Excellent Rehab Potential Excellent Impairments Identified Speech Assessment of Overall Progress Improving Assessment of Improvement Pt reports she completed oral motor exercises, and speech exercises 2-3x yesterday after session. Pt speech appears 100% intelligible, however continues slightly slurred. ST assessed speech ability with use of tongue twister exercise . Pt able to verbalize 5/5 tongue twisters with 100% accuracy, however slow rate. Pt reports difficulties with / s/ and /k/ words and reports she has to give effort when producing /k/. Pt completed 10 reps of lingual/labial/buccal strengthening exercises requiring mild cues. ST encouraged Pt to continue utilizing over articulation when speaking with others. ST also recommended Pt continue to complete home exercise program 2-3x/day. Pt verbalized understanding. Reviewed with Patient Progress Being Made,Home Exercise Program Patient/Caregiver Understanding Excellent Plan Length of Session [address] recommends continue ST services after discharge.
--- NOTE | 2023-08-15 10:31 | P.DS_ITS ---
History of Present Illness History of Present Illness Date Patient Seen: 08/15/23 Time Patient Seen: 10:31 Date of Onset of Symptoms: 08/12/23 Chief complaint: stroke Narrative: Patient is an 88-year-old female well known to me who presents with acute onset of right facial droop and right arm numbness and weakness. Patient went to sleep Saturday night without any issue woke up to work with the [employer] and he noted that she was not talking well in her right face was drooping. She would had no headaches no visual symptoms no chest pain. No nausea no vomiting. She felt like she was feeling okay and then started to notice her hand. At that point she was brought to the emergency room. Patient has a history of both 01/08/2021 having a TIA and 12/07/2021. She was briefly placed on Plavix for a month and then that was discontinued as per neurologist and then had been on Plavix since her TIA 12/07/2021. With no other changes. She is had no complaints and has felt well. No bleeding no pain. Energy level is been good. Patient has a history of coronary artery disease requiring 4 stents many years ago. She is not had any cardiac symptoms since that time. 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 Patient presented with acute onset of symptoms. Etiology was and time was unclear since it seemed to happen in the middle of the night. So no tPA was done. Discussed with Neurology from the emergency room. She actually remained stable. Had no evidence of arrhythmias her MRI showed a stroke in the cortical ribbon of the left precentral gyrus. No other abnormality carotids were normal echo was normal. Presumed to have some type of arrhythmia atrial fibrillation being the most likely but was not documented. Discussed with consult certainly can not anticoagulate with a fresh stroke but maybe something we consider in the distant past and she has been on Plavix and aspirin. Slowly improved over the course of her admission but still had moderate involvement of her hand her mouth and her speech. Otherwise no changes. Patient was accepted for stroke rehab we discussed how important this was to her. And she understands. Will transfer today. History of coronary artery disease. Has been stable for years. No change. History of hypertension patient was well-controlled during the admission no change in medication Osteoarthritis stable. Exam Vital Signs (past 8 hours): - 08/15/23 04:00 08/15/23 08:00 Temperature 96.9 F L 98.1 F Pulse Rate 72 68 Respiratory Rate 16 16 Blood Pressure 123/64 131/67 Pulse Oximetry 97 95 Oxygen Flow Rate 0 0 Oxygen Delivery Method Room Air Oxygen Flow Rate 0 Narrative Exam Narrative: Alert elderly female in no acute distress Lungs are clear heart is regular rate and rhythm no murmurs clicks rubs or gallops neurologic exam shows actually slightly improved hand function still weak she still is searching intermittently for words and has a decreased droop of her right mouth. Otherwise normal exam. Objective Labs 08/12/23 16:00 08/12/23 16:00 [facility] Medical History (Updated 08/12/23 @ 18:06 by Marly Solares DO) Lumbosacral radiculopathy at L4 Herniated nucleus pulposus, L4-5 left Gait instability Chronic left hip pain Surgical History History of carpal tunnel surgery 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, 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 Family History Father Heart disease Mother Heart disease Social History household members: none occupational status: previously employed Smoking Status: Former smoker alcohol intake: current Discharge Assessment & Plan Assessment and Plan Assessment: Improving but still significantly affected Plan of Treatment: Discharge to acute stroke rehab Discharge Plan Discharge Plan Patient Disposition: er Inpatient Rehab Other facility: [facility] Discharge orders & Medications Discharge Orders: Discharge (Order); Ordered 08/15/23 Ordered By: Michael Carmona Prescriptions: Continued clopidogrel 75 mg Tablet 75 mg PO DAILY Qty: 14 0RF aspirin 325 mg Tablet 325 mg PO DAILY nitroglycerin 0.4 mg tablet, sublingual 0.4 mg SL Q5M PRN (Reason: Chest Pain) Patient Comments: Believes last taken years ago atorvastatin [Lipitor] 80 mg tablet 80 mg PO DAILY esomeprazole magnesium [Nexium] 40 mg capsule,delayed release(DR/EC) 40 mg PO DAILY latanoprost [Xalatan] 0.005 % drops 1 drp EYE-BOTH BEDTIME calcium carbonate [Calcium 600] 600 mg calcium (1,500 mg) tablet 600 mg PO DAILY cholecalciferol (vitamin D3) 1,000 unit capsule 2,000 unit PO DAILY ascorbate calcium (vitamin C) 500 mg tablet 500 mg PO DAILY pyridoxine (vitamin B6) [Vitamin B-6] 100 mg tablet 100 mg PO DAILY mecobalamin (vitamin B12) 1,000 mcg tablet,disintegrating 1,000 mcg SL DAILY multivitamin Tablet 1 tab PO DAILY folic acid 400 mcg tablet 0.4 mg PO DAILY Follow up/Referrals: Michael Carmona MD [Primary Care Provider] - 1 Month (Patient will contact me in set up appointment after discharge from acute care) Discharge Health Status Multidrug resistant organism: No MDRO Precautions: [place] Diet/Activity/Treatments Diet: Diet as Tolerated Liquid consistency: Normal/Thin Food texture: Regular Discharge Data Primary Care Provider: Michael Carmona Quality VTE Deep Vein Thrombosis/Pulmonary Embolism Present on Admission: No
--- NOTE | 2023-08-15 11:15 | CM.DPC ---
DCP Discharge Acute Inpt Rehab Per MD, pt is medically stable to d/c to Acute Inpt Rehab today via family POV and no identified barriers to discharge. SW spoke to Demi at [facility] and she confirms they can still accept today and provided the RN number to call report and SW faxed d/c summary, newest ST note, and copy of med list to review. SW attempted to meet bedside with pt but she was receiving patient care by CIRCULATION SALES REPRESENTATIVE and will then have assist getting dressed for d/c but pt confirms she's agreeable to d/c to Acute Rehab today and family still plans to arrive about 1100 bedside for transport. SW provided RN number to call report. Plan: Patient to d/c to [facility] today via family POV around 1130 before safe return home. TITO Fraser
--- NOTE | 2023-08-15 12:25 | PC.NURSE ---
Patient is A&Ox4. VSS, afebrile, NSR with BBB on telemetry. She is cleared for discharge to Rehab facility. Reashtyn evaluating patient at bedside this a.m. She eats breakfast and showers. Her Brother in law- arrives at 11:30 a.m. to transport patient to [facility]. She is escorted by DIGITAL ANALYST via w/ch to private vehicle with her sister and brother in law and all of her belongings at 11:44 a.m. Report called to Neo at [phone].
== END 2023-08-15 11:42 | DRG 66 ==
LOC: ED 18:06 → AC 18:10
PROVIDERS: Admitting Provider Family Medicine; Emergency Provider Emergency Medicine; PCP Family Medicine; Referring Provider Emergency Medicine; Visit Provider Family Medicine
DX: I63.9 Cerebral infarction, unspecified (principal); I10 Essential (primary) hypertension; R29.810 Facial weakness; I25.10 Atherosclerotic heart disease of native coronary artery without angina pectoris; R29.704 NIHSS score 4; R29.705 NIHSS score 5; R47.01 Aphasia; M19.90 Unspecified osteoarthritis, unspecified site; Z66 Do not resuscitate; Z95.5 Presence of coronary angioplasty implant and graft; Z87.891 Personal history of nicotine dependence
CPT/HCPCS: 36415; 70450; 70496; 70498; 70551; 80053; 80305; 80320; 81001; 82550; 84484; 85025; 85610; 85730; 92507; 92523; 93005; 93306; 97116; 97129; 97130; 97161; 97166; 97530; 97535; 99284; 99285; J1650; Q9967

== ENCOUNTER 2023-11-29 15:31 | Emergency (ER) | payer OTHER, SELFPAY ==
[2023-08-12 18:20] VITALS: BMI 23.2
[2023-11-29] VITALS (12 sets, daily range): BP systolic 121–163; BP diastolic 66–88; PULSE 73–94; RESP 13–21; TEMP 37.3; O2SAT 96–100; BMI 22.2
--- NOTE | 2023-11-29 16:13 | DI.RAD.S_ITS ---
PROCEDURE: XR CHEST 1V INDICATIONS: chest pain TECHNIQUE: One view of the chest was acquired. COMPARISON: [facility], CR, XR CHEST 1V, 01/07/2021, 20:16. [facility], CR, XR CHEST 2V, 02/26/2018, 11:15. FINDINGS: Surgical changes and devices: None. Lungs and pleura: Masslike lesion projects over the right lower lung zone. Mediastinum: Mediastinal contours appear normal. Heart size is normal. Bones and chest wall: No suspicious bony lesions. Overlying soft tissues appear unremarkable. IMPRESSION: Masslike lesion projects over the right lower lung zone. Recommend CT for further characterization. Dictated by: Matteo Tobar M.D. on 11/29/2023 at 16:54 Approved by: Matteo Tobar M.D. on 11/29/2023 at 16:55
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
[2023-11-29 17:43] LABS: Prothrombin Time 11.8 SECONDS (9.4-12.5)
[2023-11-29 17:44] LABS: Add Manual Diff / Slide Review NO; Basophils Absolute Auto 0 /uL (0-100); Basophils Percent Auto 0.5 % (0-2); Eosinophils Absolute Auto 0 /uL (0-450); Eosinophils Percent Auto 0.4 % (2-4); Hematocrit 39.8 % (36-46); Hemoglobin 13.5 g/dL (12.0-16.0); Lymphocytes Absolute Auto 2100 /uL (1100-4500); Lymphocytes Percent Auto 24.5 % (25-40); Mean Corpuscular Volume 93.9 fL (80-100); Monocytes Absolute Auto 400 /uL (0-900); Monocytes Percent Auto 4.6 % (3-14); Neutrophils Absolute Auto 5800 /uL (1500-7000); Platelet Count 175 X10^3/uL (150-400); Red Blood Cell Count 4.24 X10^6/uL (4.0-5.2); Red Cell Distribution Width 13.8 % (11.6-14.8); White Blood Cell Count 8.4 X10^3/uL (4.5-11.0)
[2023-11-29 17:46] LABS: PTT Partial Thromboplastin Tim 36 SECONDS (25.1-36.5)
[2023-11-29 17:52] LABS: Alanine Aminotransferase 25 IU/L (<35); Albumin 4.4 g/dL (3.5-5.0); Albumin Globulin Ratio 1.4 (1.0-2.8); Alkaline Phosphatase 65 U/L (38-126); Aspartate Aminotransferase 32 IU/L (14-36); BUN Creatinine Ratio 36.7 (6-22); Bilirubin Total 1.2 mg/dL (0.2-1.3); Blood Urea Nitrogen 18 mg/dL (7-17); Calcium 9.5 mg/dL (8.4-10.2); Carbon Dioxide 29 mmol/L (22-32); Chloride 108 mmol/L (98-107); Creatine Kinase 53 U/L (30-135); Estimated Glomerular Filt Rate > 60 mL/min (>60); Globulin 3.1 g/dL (1.7-4.1); Glucose 101 mg/dL (80-110); HEMOLYSIS < 15 (0-50); Lipase 80 U/L (23-300); Magnesium 2.1 mg/dL (1.6-2.3); Potassium 3.5 mmol/L (3.4-5.1); Sodium 141 mmol/L (137-145); Total Protein 7.5 g/dL (6.3-8.2)
[2023-11-29 18:03] LABS: Troponin I < 0.012 ng/mL (0.01-0.034)
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
== END 2023-11-29 22:45 | disposition home or self-care (01) ==
PROVIDERS: Emergency Medicine; Emergency Provider Emergency Medicine; PCP Family Medicine
DX: R55 Syncope and collapse (principal); R07.9 Chest pain, unspecified; V89.2XXA Person injured in unspecified motor-vehicle accident, traffic, initial encounter; Z86.73 Personal history of transient ischemic attack (TIA), and cerebral infarction without residual deficits
CPT/HCPCS: 36415; 70450; 71045; 71275; 80053; 81003; 82550; 83690; 83735; 84484; 85025; 85610; 85730; 93005; 99284; Q9967

== ENCOUNTER → 2023-12-06 11:22 | Outpatient (CLI) | payer MEDICARE, OTHER, SELFPAY ==
[2023-08-12 18:20] VITALS: BMI 23.2
--- NOTE | 2023-12-06 11:24 | DI.CT.S_ITS ---
PROCEDURE: CT ABDOMEN PELVIS W CON INDICATIONS: Other nonspecific abnormal finding of lung field TECHNIQUE: After the administration of intravenous contrast, axial sections acquired from the lung bases to the pubic symphysis. Coronal and sagittal reformats were performed. For radiation dose reduction, the following was used: automated exposure control, adjustment of mA and/or kV according to patient size. COMPARISON: [facility], CT, CT ANGIO CHEST PE PROTOCOL, 01/29/2018, 12:03. [facility], CR, XR CHEST 1V, 11/29/2023, 16:19. [facility], CT, CT ANGIO CHEST PE PROTOCOL, 11/29/2023, 21:10. FINDINGS: Image quality: Diagnostic. Lower Chest: There is a 0.8 cm subpleural nodule in the left lower lobe. Note is made of bilateral breast implants. Heart size is normal. There is coronary artery calcification. Small hiatal hernia. ABDOMEN: Liver: No solid mass. Normal size. There multiple indeterminate hepatic hypodensities. The lesions are likely cysts. Smaller lesions are too small to further characterize, therefore, indeterminate. Gallbladder: No radiopaque gallstones or wall thickening. Biliary ducts: No biliary dilation. Pancreas: No ductal dilation. Spleen: Size is within normal limits. Adrenal Glands: No adrenal nodules. Kidneys and Ureters: There is a 4.0 x 3.7 cm simple cyst in the superior pole of the left kidney. Small cortical nodules in right kidney are also likely cysts. There is a wedge-shaped deformity in the superior pole of the right kidney, most likely a scar. No hydronephrosis. No solid mass. No complex renal cystic lesion which requires follow up. Stomach and Bowel: There is a 3 cm duodenal diverticulum in the 3rd portion of the duodenum with wall thickening. Normal bowel caliber. There is mild focal thickening of the distal sigmoid colon (series 2, image 55). There is a large amount stool in colon. Peritoneum: No abnormal intraperitoneal fluid. No free air. Ventral Wall: No significant ventral hernia. Abdominal Nodes: No retroperitoneal or mesenteric adenopathy by size criteria. Vessels: Aorta and inferior vena cava are normal in size. Moderate to severe atherosclerosis. PELVIS: Pelvic Organs: There is a 1.8 x 1.6 cm cystic structure in the right pelvic sidewall, most likely the right ovary. Uterus is absent. Bladder: No bladder wall thickening, accounting for underdistention. Pelvic Nodes: No enlarged lymph nodes. Miscellaneous: No inguinal hernias are seen. Bones: There is an expansile mass in the anterior aspect of the right 6th rib. There is a sclerotic lesion in the right iliac bone, most likely a bone island. Severe spondylitic changes. Osteopenia. Bilateral hip arthroplasties. IMPRESSION: 1. An expansile mass in the anterior aspect of the right 6th rib suspicious for metastatic disease. 2. A 0.8 cm subpleural nodule in the left lower lobe. Morphologically, it has appearance of round atelectasis. A metastatic nodule is less likely but not entirely excluded. Please refer to CT chest angiogram for other chest findings. 3. A primary neoplasm is not definitively identified. There is short area of focal narrowing in the distal sigmoid colon. Consider colonoscopy for further evaluation. 4. A duodenal diverticulum. The diverticular wall is thickened. Recommend EGD for follow-up. 5. Severe atherosclerotic calcifications. Dictated by: Khoi Evans M.D. on 12/06/2023 at 15:31 Approved by: Khoi Evans M.D. on 12/07/2023 at 8:49
== END ==
PROVIDERS: PCP Family Medicine; Referring Provider Family Medicine; Visit Provider Family Medicine
DX: R91.1 Solitary pulmonary nodule (principal); M89.9 Disorder of bone, unspecified; I25.10 Atherosclerotic heart disease of native coronary artery without angina pectoris; K44.9 Diaphragmatic hernia without obstruction or gangrene; N28.1 Cyst of kidney, acquired; K57.10 Diverticulosis of small intestine without perforation or abscess without bleeding; I70.0 Atherosclerosis of aorta
CPT/HCPCS: 74177; Q9967

== ENCOUNTER 2024-05-08 12:54 | Emergency (ER) | payer MEDICARE, OTHER, SELFPAY ==
[2023-08-12 18:20] VITALS: BMI 23.2
[2024-05-08] VITALS (9 sets, daily range): BP systolic 120–134; BP diastolic 62–79; PULSE 73–86; RESP 18–27; TEMP 36.6; O2SAT 94–96; BMI 21.4
[2024-05-08 13:53] LABS: Add Manual Diff / Slide Review NO; Basophils Absolute Auto 100 /uL (0-100); Basophils Percent Auto 0.5 % (0-2); Eosinophils Absolute Auto 100 /uL (0-450); Eosinophils Percent Auto 1.2 % (2-4); Hematocrit 38.9 % (36-46); Hemoglobin 13.3 g/dL (12.0-16.0); Lymphocytes Absolute Auto 2000 /uL (1100-4500); Lymphocytes Percent Auto 18.9 % (25-40); Mean Corpuscular HGB Conc 34.3 % (30-36); Mean Corpuscular Hemoglobin 31.9 PG (26-34); Monocytes Absolute Auto 800 /uL (0-900); Monocytes Percent Auto 7.2 % (3-14); Neutrophils Absolute Auto 7700 /uL (1500-7000); Neutrophils Percent Auto 72.2 % (50-75); Platelet Count 150 X10^3/uL (150-400); Red Blood Cell Count 4.19 X10^6/uL (4.0-5.2); Red Cell Distribution Width 14.3 % (11.6-14.8); White Blood Cell Count 10.7 X10^3/uL (4.5-11.0)
[2024-05-08 14:00] LABS: INR 1.1 (0.9-1.3); Prothrombin Time 12.1 SECONDS (9.4-12.5)
[2024-05-08 14:19] LABS: Influenza A - CEPHEID Flu A NEGATIVE (NEGATIVE); Influenza B - CEPHEID Flu B NEGATIVE (NEGATIVE); Respiratory Syncytial Virus Negative (Negative)
[2024-05-08 14:20] LABS: COVID-19 CEPHEID 4-PLEX PCR Negative (Negative)
[2024-05-08 14:28] LABS: Alanine Aminotransferase 15 IU/L (<35); Albumin 4.1 g/dL (3.5-5.0); Albumin Globulin Ratio 1.3 (1.0-2.8); Alkaline Phosphatase 103 U/L (38-126); Aspartate Aminotransferase 23 IU/L (14-36); BUN Creatinine Ratio 36.8 (6-22); Bilirubin Total 2.1 mg/dL (0.2-1.3); Blood Urea Nitrogen 21 mg/dL (7-17); Calcium 9.7 mg/dL (8.4-10.2); Carbon Dioxide 28 mmol/L (22-32); Chloride 102 mmol/L (98-107); Estimated Glomerular Filt Rate > 60 mL/min (>60); Globulin 3.2 g/dL (1.7-4.1); Glucose 94 mg/dL (80-110); HEMOLYSIS < 15 (0-50); Lipase 49 U/L (23-300); Potassium 4.1 mmol/L (3.4-5.1); Sodium 137 mmol/L (137-145); Total Protein 7.3 g/dL (6.3-8.2)
--- NOTE | 2024-05-08 17:56 | DI.RAD.S_ITS ---
PROCEDURE: XR CHEST 1V INDICATIONS: Persistent cough TECHNIQUE: One view of the chest was acquired. COMPARISON: [facility], CR, XR CHEST 1V, 11/29/2023, 16:19. [facility], CR, XR CHEST 1V, 01/07/2021, 20:16. FINDINGS: Surgical changes and devices: Surgical clips project over the left axilla. Lungs and pleura: Lungs are clear. No pleural effusions or pneumothorax. Mediastinum: Mediastinal contours appear normal. Heart size is normal. Bones and chest wall: Growing soft tissue component of the 6th right anterior rib mass. IMPRESSION: No acute cardiopulmonary abnormality is seen. Growing soft tissue component of the 6th rib mass. Dictated by: Matteo Tobar M.D. on 05/08/2024 at 18:27 Approved by: Matteo Tobar M.D. on 05/08/2024 at 18:29
--- NOTE | 2024-05-08 17:59 | CM.SWNOTE ---
ED MSWS Note MSWS receives consult from storeroom supervisor due to patient's friend's concern for patient's increase in weakness and concern for ADLs. Patient is 88 y/o female who presents to ED with concern for fatigue and increased weakness, patient has hx of stroke in August 2023 resulting in admission and d/c to Acute SNF rehab at [facility] with referral to [facility] afterwards. Patient's PCP is Dr. Carmona, patient has Medicare and for Life insurance. Patient is DNR/DNI, patient's DPOA is daughter Jalyn in [place]. MSWS meets with patient and friend in [facility] with patient consent. Patient presents as A/Ox4. Patient resides alone in [place]. Patient endorses she uses a cane at baseline, can ambulate and endorses independence with ADLs. It is reported that patient's friend is a retired nurse and checks in with patient by phone or visits patient person. It is reported that patient's sister and daughter check in with patient via phone daily. It is reported that patient has a grandson in [place] and has a life alert. It is reported that there is concern for patient being a fall risk. Patient's friend endorses concern for patient's ADLs and states that patient is falling behind on cleaning the home and changing her clothes. Patient denies interest in Home Health referral, patient endorses preference to reside at home. MSWS discusses caregivers and patient's friend states that she and patient's daughter have been attempting to secure a caregiver for patient. It is reported that they have already reached out to [place] [facility] and received list for private pay resources and Senior Resource guide. MSWS provides patient and friend with caregiver brochures, senior resource guide, lists of caregiver agencies. MSWS encourages patient and friend to discuss goals of care further with family and to keep seeking out caregiver for patient. Plan: patient to be evaluated by ED provider, patient likely to d/c to home upon medical clearance. Patient's friend and family to seek out caregivers for patient. HEATH EdmondsonSW
--- NOTE | 2024-05-08 18:16 | EKG_ITS ---
[place] [id number] [place] [id number] Test Date: 2024-05-08 Pat Name: Bri Haley Department: [facility] Room: Gender: Female Or First Assist Registered Nurse: MARCELINA : 1935 Requested By: Order Number: [id number] Reading MD: Raymundo Hwang Measurements Intervals [place] Rate: 78 P: 29 CO: 148 QRS: -1 QRSD: 78 T: -10 QT: 364 QTc: 414 Interpretive Statements Normal sinus rhythm Minimal voltage criteria for LVH, may be normal variant ( R in aVL ) Inferior infarct , age undetermined Electronically Signed On 05-08-2024 20:16:16 PDT by Raymundo Hwang
[2024-05-08 18:40] LABS: Bacteria Urine Many (>30); RBC Urine None Seen (0-5/HPF); Squamous Epithelial Cell Urine 1-5 /HPF (0-5/HPF); Urine Volume 10mL (spun)
[2024-05-08 18:41] LABS: Culture Indicated Urine Specimen Cultured; WBC Urine 0-1/HPF (0-5/HPF)
--- NOTE | 2024-05-08 18:53 | ED_ITS ---
HPI - General Adult General Chief complaint: Weakness Stated complaint: extreme fatigue Time Seen by Provider: 05/08/24 17:52 Source: patient and family Mode of arrival: Ambulatory Limitations: no limitations History of Present Illness HPI narrative: Patient is an 88-year-old female who is here with a friend. Patient states that since she had a stroke several months ago she feels like that she was just been declining physically. According to the friend who is at bedside they have noticed a significant decline in the patient's stamina over the past week or so. The patient does admit to being somewhat tired. She denies chest pain, shortness of breath, abdominal pain, nausea vomiting, change in bowel habits, urinary symptoms, skin changes, headache, specific weakness in her upper and lower extremities. She states she was here because her friend is concerned about her well-being. Her friend states that she has noticed a significant change in her activities of daily living over the past week. Patient states that at baseline she lives by herself and can walk by herself and bathe herself and cooks her own food. Related Data Home Medications Medication Instructions Recorded Confirmed ascorbate calcium (vitamin C) 500 500 mg PO DAILY 08/17/19 08/12/23 mg tablet atorvastatin 80 mg tablet (Lipitor) 80 mg PO DAILY 08/17/19 08/12/23 calcium carbonate (Calcium 600) 600 mg PO DAILY 08/17/19 08/12/23 cholecalciferol (vitamin D3) 25 2,000 unit PO DAILY 08/17/19 08/12/23 mcg (1,000 unit) capsule esomeprazole magnesium 40 mg 40 mg PO DAILY 08/17/19 08/12/23 capsule,delayed release (Nexium) folic acid 400 mcg tablet 0.4 mg PO DAILY 08/17/19 08/12/23 latanoprost 0.005 % eye drops 1 drp EYE-BOTH BEDTIME 08/17/19 08/12/23 (Xalatan) mecobalamin (vitamin B12) 1,000 1,000 mcg sublingual DAILY 08/17/19 08/12/23 mcg disintegrating tablet,sublingual multivitamin 1 tab PO DAILY 08/17/19 08/12/23 nitroglycerin 0.4 mg sublingual 0.4 mg sublingual Q5M PRN Chest 12/09/19 12/04/23 tablet Pain pyridoxine (vitamin B6) 100 mg 100 mg PO DAILY 08/17/19 08/12/23 tablet (Vitamin B-6) aspirin 325 mg tablet 325 mg PO DAILY 08/12/23 08/12/23 Previous Rx's Medication Instructions Recorded clopidogrel 75 mg tablet 75 mg PO DAILY #14 tabs 12/08/21 nitrofurantoin 100 mg PO Q12H 5 days #10 caps 05/08/24 monohydrate/macrocrystals 100 mg capsule (Macrobid) Allergies Allergy/AdvReac Type Severity Reaction Status Date / Time No Known Allergies Allergy Unknown Verified 11/29/23 16:03 [NO KNOWN ALLERGIES] Review of Systems Review of Systems ROS Unobtainable: All systems reviewed & are unremarkable except as noted in HPI and below Patient History Medical History Lumbosacral radiculopathy at L4 Herniated nucleus pulposus, L4-5 left Gait instability Chronic left hip pain Surgical History History of carpal tunnel surgery 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, 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 Family History Father Heart disease Mother Heart disease Social History household members: none occupational status: previously employed Smoking Status: Former smoker alcohol intake: current Smoking Status: Former smoker alcohol intake frequency: a few times a week Alcohol type: wine Substance Use Type: does not use Exam Initial Vital Signs Initial Vital Signs: Vital Signs Temperature 97.8 F 05/08/24 13:19 Pulse Rate 73 05/08/24 13:19 Respiratory Rate 18 05/08/24 13:19 Blood Pressure 120/62 05/08/24 13:19 Pulse Oximetry 96 05/08/24 13:19 Oxygen Delivery Method Room Air 05/08/24 13:19 Const General: cooperative and No ill appearing HENMT Head: normal to inspection and normocephalic Resp Effort & Inspection: normal respiratory effort Auscultation: clear to auscultation bilaterally Cardio Rate: regular rate Rhythm: regular rhythm GI Inspection: normal to inspection Neuro General: patient alert, patient awake, patient oriented x3 and moves all extremities Extrem General: normal to inspection, capillary refill normal and No edema Scores GCS [place] coma scale eye opening: Spontaneous [place] coma scale verbal response: Orientated [place] coma scale motor response: Obey commands [place] coma scale total score: 15 Course Orders Ordered: ED Orders 05/08/24 17:56 XR chest 1V Stat 05/08/24 18:09 Urine Culture Stat Urine Microscopic Stat Discontinued Medications Nitrofurantoin Macrocrystals (Nitrofurantoin Er 100 Mg Capsule) 100 mg PO NOW ONE Stop: 05/08/24 18:54 Last Admin: 05/08/24 19:04 Dose: 100 mg Documented By: ADELE Ondansetron HCl (Ondansetron 4 Mg/2 Ml Inj) 4 mg IV NOW PRN PRN Reason: Nausea And Vomiting Vital Signs Vital signs: Vital Signs - 8 hr 05/08/24 18:30 05/08/24 18:30 05/08/24 19:00 Pulse Rate 77 Respiratory Rate 25 H Blood Pressure 134/69 133/72 Pulse Oximetry 95 05/08/24 19:00 05/08/24 19:33 05/08/24 20:00 Pulse Rate 78 86 79 Respiratory Rate 23 26 H 23 Blood Pressure Pulse Oximetry 95 96 Medical Decision Making Lab Data Lab results reviewed: Yes I reviewed the patient's lab results. 05/08/24 13:45 05/08/24 13:45 Labs: Lab Results 05/08/24 05/08/24 05/08/24 Range/Units 13:33 13:45 18:09 WBC 10.7 (4.5-11.0) X10^3/uL RBC 4.19 (4.0-5.2) X10^6/uL Hgb 13.3 (12.0-16.0) g/dL Hct 38.9 (36-46) % MCV 93.0 (80-100) fL MCH 31.9 (26-34) PG MCHC 34.3 (30-36) % RDW 14.3 (11.6-14.8) % Plt Count 150 (150-400) X10^3/uL Neut % (Auto) 72.2 (50-75) % Lymph % (Auto) 18.9 L (25-40) % [place] % (Auto) 7.2 (3-14) % Eos % (Auto) 1.2 L (2-4) % Baso % (Auto) 0.5 (0-2) % Neut # (Auto) 7700 H (0618-2869) /uL Lymph # (Auto) 2000 (2509-1948) /uL [place] # (Auto) 800 (0-900) /uL Eos # (Auto) 100 (0-450) /uL Baso # (Auto) 100 (0-100) /uL PT 12.1 (9.4-12.5) SECONDS INR 1.1 (0.9-1.3) Sodium 137 (137-145) mmol/L Potassium 4.1 (3.4-5.1) mmol/L Chloride 102 (98-107) mmol/L Carbon Dioxide 28 (22-32) mmol/L BUN 21 H (7-17) mg/dL Creatinine 0.57 (0.52-1.04) mg/dL Estimated GFR > 60 (>60) mL/min BUN/Creatinine Ratio 36.8 H (6-22) Glucose 94 (80-110) mg/dL Calcium 9.7 (8.4-10.2) mg/dL Total Bilirubin 2.1 H (0.2-1.3) mg/dL AST 23 (14-36) IU/L ALT 15 (<35) IU/L Alkaline Phosphatase 103 (38-126) U/L Total Protein 7.3 (6.3-8.2) g/dL Albumin 4.1 (3.5-5.0) g/dL Globulin 3.2 (1.7-4.1) g/dL Albumin/Globulin Ratio 1.3 (1.0-2.8) Lipase 49 (23-300) U/L Urine RBC None seen (0-5/HPF) Urine WBC 0-1/hpf (0-5/HPF) Ur Squamous Epith Cells 1-5 /hpf (0-5/HPF) Urine Bacteria Many (>30) H (None) Ur Culture Indicated? Specimen cultured Vol Urine Centrifuged 10ml (spun) SARS-CoV-2 (PCR) Negative (Negative) Influenza A (RT-PCR) Flu a negative (NEGATIVE) Influenza B (RT-PCR) Flu b negative (NEGATIVE) RSV (PCR) Negative (Negative) Urine Dip Bedside Urine Glucose Negative Bedside Urine Bilirubin - Negative Bedside Urine Ketone - Negative Urine Specific [place] 1.020 Bedside Urine Occult Blood +/- Bedside Urine pH 5.5 Bedside Urine Protein - Negative Bedside Urine Urobilinogen - Negative Bedside Urine Nitrite + Positive Bedside Urine Leukocytes - Negative Esterase Point of care testing: Urine Dip Bedside Urine Glucose Negative Bedside Urine Bilirubin - Negative Bedside Urine Ketone - Negative Urine Specific [place] 1.020 Bedside Urine Occult Blood +/- Bedside Urine pH 5.5 Bedside Urine Protein - Negative Bedside Urine Urobilinogen - Negative Bedside Urine Nitrite + Positive Bedside Urine Leukocytes - Negative Esterase Imaging Data Chest x-ray: Radiologist's Impression: PROCEDURE: XR CHEST 1V INDICATIONS: Persistent cough TECHNIQUE: One view of the chest was acquired. COMPARISON: [facility], CR, XR CHEST 1V, 11/29/2023, 16:19. [facility], CR, XR CHEST 1V, 01/07/2021, 20:16. FINDINGS: Surgical changes and devices: Surgical clips project over the left axilla. Lungs and pleura: Lungs are clear. No pleural effusions or pneumothorax. Mediastinum: Mediastinal contours appear normal. Heart size is normal. Bones and chest wall: Growing soft tissue component of the 6th right anterior rib mass. IMPRESSION: No acute cardiopulmonary abnormality is seen. Growing soft tissue component of the 6th rib mass. ECG Data Attestation: I personally reviewed and interpreted this ECG as follows: Interpretation: Sinus rhythm Ventricular rate is 78 Normal axis Normal QRS Normal QTC No ST T wave changes MDM Narrative Medical decision making narrative: Patient has very minimal if any complaints however her friend at bedside who checks on her frequently stated that she was had a decrease in her stamina over the past week or so. Patient does have a nitrite positive urine although she does not have any urinary symptoms. We did discuss the possibility of the bacteria causing the nitrite could be causing an infection and that could be causing her weakness. A urine culture is pending. The plan will be to start her on antibiotics to see if this improves her symptoms. Her 1st dose was given here in the emergency department a prescription was sent to the pharmacy of her choice. She did ambulate around the emergency department with a cane although it was relatively slow. No specific indication for admission to the hospital today. Patient was seen by social work. She was given resources. Patient and friend were informed that she should contact her primary care doctor for a follow-up. They were given return precautions. They expressed understanding and agreement with plan. Discharge Plan Departure Patient Disposition: Home Clinical Impression: Urinary tract infection, Weakness Instructions: DI for Urinary Tract Infection (UTI) Activity Restrictions/Additional Instructions: A prescription for antibiotics was sent to [facility]. We did have a urine culture pending at the time of your discharge and if we need to change any antibiotics based on the results of this we will contact you to let you know. I highly recommend that you contact your primary doctor for follow-up and pursue the information given to you by our licensed master social worker. Return to the emergency department for new symptoms. Prescriptions: New nitrofurantoin monohyd/m-cryst [Macrobid] 100 mg capsule 100 mg PO Q12H 5 Days Qty: 10 0RF Rx Instructions: must administer with a meal/food No Action clopidogrel 75 mg Tablet 75 mg PO DAILY Qty: 14 0RF aspirin 325 mg Tablet 325 mg PO DAILY nitroglycerin 0.4 mg tablet, sublingual 0.4 mg SL Q5M PRN (Reason: Chest Pain) Patient Comments: Believes last taken years ago atorvastatin [Lipitor] 80 mg tablet 80 mg PO DAILY esomeprazole magnesium [Nexium] 40 mg capsule,delayed release(DR/EC) 40 mg PO DAILY latanoprost [Xalatan] 0.005 % drops 1 drp EYE-BOTH BEDTIME calcium carbonate [Calcium 600] 600 mg calcium (1,500 mg) tablet 600 mg PO DAILY cholecalciferol (vitamin D3) 1,000 unit capsule 2,000 unit PO DAILY ascorbate calcium (vitamin C) 500 mg tablet 500 mg PO DAILY pyridoxine (vitamin B6) [Vitamin B-6] 100 mg tablet 100 mg PO DAILY mecobalamin (vitamin B12) 1,000 mcg tablet,disintegrating 1,000 mcg SL DAILY multivitamin Tablet 1 tab PO DAILY folic acid 400 mcg tablet 0.4 mg PO DAILY Referrals: Michael Carmona MD [Primary Care Provider] - Stand Alone Forms: Patient Portal/API
[2024-05-08] MEDS: NITROFURANTOIN ER 100 MG CAPSULE PO (19:04)
== END 2024-05-08 20:11 | disposition home or self-care (01) ==
PROVIDERS: Emergency Medicine; Emergency Provider Emergency Medicine; PCP Family Medicine
DX: N39.0 Urinary tract infection, site not specified (principal); R53.1 Weakness; R05.9 Cough, unspecified; Z11.52 Encounter for screening for COVID-19
CPT/HCPCS: 0241U; 36415; 71045; 80053; 81003; 81015; 83690; 85025; 85610; 87077; 87086; 87186; 93005; 99284

== ENCOUNTER 2024-05-16 18:56 | Emergency (ER) | payer MEDICARE, OTHER, SELFPAY ==
[2023-08-12 18:20] VITALS: BMI 23.2
[2024-05-16] VITALS (7 sets, daily range): BP systolic 122–135; BP diastolic 58–74; PULSE 66–74; RESP 18–28; TEMP 36.3; O2SAT 95–99; BMI 21.4
--- NOTE | 2024-05-16 19:20 | ED.NEUROSD ---
HPI - Neuro Symptoms/Deficit <Kristen Farhat, DO - Last Filed: 05/21/24 13:24> General Chief Complaint: Neuro Symptoms/Deficit Stated Complaint: confused, weakness, hx stroke, poss stroke Time Seen by Provider: 05/16/24 19:20 Source: patient and family Mode of arrival: Wheelchair History of Present Illness HPI Narrative: Patient is a 88-year-old female history of coronary artery disease CVA in August recent UTI presents today with confusion. She lives alone walks with a cane. She apparently called some family members reporting that she was confused and she was not quite sure what was going on. Her sister and brother in law drove up and brought her to the emergency department for evaluation. She reports that she was seen and evaluated yesterday for a UTI it was in fact May 08 where she was diagnosed with a UTI. With daughter and family at bedside discussion of gradual decline over last couple of weeks. Daughter is concerned about her going home alone. She does ambulate and walk with a cane. However with the confusion they do not feel comfortable with her going home alone. They feel like it is time for her to have more help. They do have an order for home health but they think that it is probably passed that. Patient reports no pain or issue she feels like she might be ready to go home. She is able to tell me her age but she does seem a little confused. sHe is also able to follow commands On Anticoagulants: Yes (Milind) Related Data Home Medications Medication Instructions Recorded Confirmed ascorbate calcium (vitamin C) 500 500 mg PO DAILY 08/17/19 08/12/23 mg tablet atorvastatin 80 mg tablet (Lipitor) 80 mg PO DAILY 08/17/19 08/12/23 calcium carbonate (Calcium 600) 600 mg PO DAILY 08/17/19 08/12/23 cholecalciferol (vitamin D3) 25 2,000 unit PO DAILY 08/17/19 08/12/23 mcg (1,000 unit) capsule esomeprazole magnesium 40 mg 40 mg PO DAILY 08/17/19 08/12/23 capsule,delayed release (Nexium) folic acid 400 mcg tablet 0.4 mg PO DAILY 08/17/19 08/12/23 latanoprost 0.005 % eye drops 1 drp EYE-BOTH BEDTIME 08/17/19 08/12/23 (Xalatan) mecobalamin (vitamin B12) 1,000 1,000 mcg sublingual DAILY 08/17/19 08/12/23 mcg disintegrating tablet,sublingual multivitamin 1 tab PO DAILY 08/17/19 08/12/23 nitroglycerin 0.4 mg sublingual 0.4 mg sublingual Q5M PRN Chest 08/17/19 08/12/23 tablet Pain pyridoxine (vitamin B6) 100 mg 100 mg PO DAILY 08/17/19 08/12/23 tablet (Vitamin B-6) aspirin 325 mg tablet 325 mg PO DAILY 08/12/23 08/12/23 Previous Rx's Medication Instructions Recorded clopidogrel 75 mg tablet 75 mg PO DAILY #14 tabs 12/08/21 Allergies Allergy/AdvReac Type Severity Reaction Status Date / Time No Known Allergies Allergy Unknown Verified 05/16/24 19:02 [NO KNOWN ALLERGIES] Review of Systems <Kristen Dougherty DO - Last Filed: 05/21/24 13:24> Hematologic/Lymphatic On Anticoagulants: Yes (Eliquis) Patient History <Kristen Dougherty DO - Last Filed: 05/21/24 13:24> Medical History (Updated 05/17/24 @ 13:44 by Akil Bradford MD) Lumbosacral radiculopathy at L4 Herniated nucleus pulposus, L4-5 left Gait instability Chronic left hip pain Surgical History History of carpal tunnel surgery 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, 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 Family History Father Heart disease Mother Heart disease Social History household members: none occupational status: previously employed Smoking Status: Former smoker alcohol intake: current Smoking Status: Former smoker alcohol intake frequency: a few times a week Alcohol type: wine Substance Use Type: does not use Exam <Kristen Dougherty DO - Last Filed: 05/21/24 13:24> Initial Vital Signs Initial Vital Signs: Vital Signs Temperature 97.4 F L 05/16/24 19:02 Pulse Rate 74 05/16/24 19:02 Respiratory Rate 18 05/16/24 19:02 Blood Pressure 126/61 05/16/24 19:02 Pulse Oximetry 95 05/16/24 19:02 Oxygen Delivery Method Room Air 05/16/24 19:02 GENERAL: Alert pleasant 88-year-old female and in no acute distress. HEENT: Head atraumatic,EOMI, pupils reactive, face symmetric, moist mucous membranes CARDIOVASCULAR: Regular rate and rhythm without murmurs, rubs or gallops. RESPIRATORY: Breath sounds equal bilaterally, no wheezes rales or rhonchi. ABDOMEN: Soft, nontender. Normoactive bowel sounds all 4 quadrants. No guarding or rebound. EXTREMITIES: Normal range of motion, no clubbing or edema. Neurovascularly intact NEUROLOGICAL: Alert and oriented x4.Normal gait and speech. Cranial nerves II through XII grossly intact. She is able to pull herself up by bed rails and sit up. Able to lift lower extremities without issue SKIN: Warm, dry, no laceration, no petechiae, no rashes or lesions. <Akil Bradford MD - Last Filed: 05/17/24 22:11> Initial Vital Signs Initial Vital Signs: Vital Signs Temperature 97.4 F L 05/16/24 19:02 Pulse Rate 74 05/16/24 19:02 Respiratory Rate 18 05/16/24 19:02 Blood Pressure 126/61 05/16/24 19:02 Pulse Oximetry 95 05/16/24 19:02 Oxygen Delivery Method Room Air 05/16/24 19:02 Course <Kristen Dougherty DO - Last Filed: 05/21/24 13:24> Orders Ordered: ED Orders 05/17/24 13:37 Consult to Home Health Stat Vital Signs Vital signs: Vital Signs - 8 hr 05/17/24 06:33 05/17/24 07:17 05/17/24 07:19 Pulse Rate 85 67 67 Respiratory Rate 19 Blood Pressure 170/72 H Pulse Oximetry 98 95 94 Oxygen Delivery Method Room Air Room Air Room Air 05/17/24 07:19 Pulse Rate Respiratory Rate 20 Blood Pressure 149/67 H Pulse Oximetry Oxygen Delivery Method <Akil Bradford MD - Last Filed: 05/17/24 22:11> Orders Ordered: ED Orders 05/17/24 13:37 Consult to Home Health Stat Vital Signs Vital signs: Vital Signs - 8 hr 05/17/24 06:33 05/17/24 07:17 05/17/24 07:19 Pulse Rate 85 67 67 Respiratory Rate 19 Blood Pressure 170/72 H Pulse Oximetry 98 95 94 Oxygen Delivery Method Room Air Room Air Room Air 05/17/24 07:19 Pulse Rate Respiratory Rate 20 Blood Pressure 149/67 H Pulse Oximetry Oxygen Delivery Method MDM - Neuro Symptoms/Deficit <Kristen Farhat, DO - Last Filed: 05/21/24 13:24> Lab Data 05/16/24 15:40 05/16/24 15:40 Labs: Lab Results 05/16/24 05/16/24 05/16/24 Range/Units 15:40 19:49 22:20 WBC 9.1 (4.5-11.0) X10^3/uL RBC 4.14 (4.0-5.2) X10^6/uL Hgb 13.0 (12.0-16.0) g/dL Hct 38.1 (36-46) % MCV 92.1 (80-100) fL MCH 31.3 (26-34) PG MCHC 34.0 (30-36) % RDW 14.0 (11.6-14.8) % Plt Count 164 (150-400) X10^3/uL Neut % (Auto) 62.5 (50-75) % Lymph % (Auto) 26.6 (25-40) % Sanborn % (Auto) 7.8 (3-14) % Eos % (Auto) 2.5 (2-4) % Baso % (Auto) 0.6 (0-2) % Neut # (Auto) 5700 (7016-9874) /uL Lymph # (Auto) 2400 (8896-2801) /uL Sanborn # (Auto) 700 (0-900) /uL Eos # (Auto) 200 (0-450) /uL Baso # (Auto) 100 (0-100) /uL PT 11.5 (9.4-12.5) SECONDS INR 1.0 (0.9-1.3) APTT 31 (25.1-36.5) SECONDS Sodium 137 (137-145) mmol/L Potassium 4.0 (3.4-5.1) mmol/L Chloride 105 (98-107) mmol/L Carbon Dioxide 24 (22-32) mmol/L BUN 19 H (7-17) mg/dL Creatinine 0.51 L (0.52-1.04) mg/dL Estimated GFR > 60 (>60) mL/min BUN/Creatinine Ratio 37.3 H (6-22) Glucose 110 (80-110) mg/dL Lactate 1.4 (0.7-2.1) mmol/L Calcium 9.3 (8.4-10.2) mg/dL Total Bilirubin 1.0 (0.2-1.3) mg/dL AST 24 (14-36) IU/L ALT 17 (<35) IU/L Alkaline Phosphatase 107 (38-126) U/L Total Creatine Kinase 45 (30-135) U/L Troponin I < 0.012 (0.01-0.034) ng/mL Total Protein 7.0 (6.3-8.2) g/dL Albumin 4.0 (3.5-5.0) g/dL Globulin 3.0 (1.7-4.1) g/dL Albumin/Globulin Ratio 1.3 (1.0-2.8) Lipase 120 D (23-300) U/L Procalcitonin 0.051 (<0.5) ng/mL Urine Color Yellow Urine Appearance Clear Urine pH 5.5 (4.5-8.0) Ur Specific Badger 1.025 (1.000-1.035) Urine Protein Negative (Negative) Urine Glucose (UA) Negative (Negative) g/dL Urine Ketones Trace H (NEGATIVE) Urine Occult Blood Negative (Negative) Urine Nitrate Negative (Negative) Urine Bilirubin Negative (NEGATIVE) Urine Urobilinogen 0.2 (0.2) E.U./dL Ur Leukocyte Esterase Negative (NEGATIVE) Urine RBC None seen (0-5/HPF) Urine WBC None seen (0-5/HPF) Ur Squamous Epith Cells 0-1 /hpf (0-5/HPF) Ur Renal Epithelial Cell 0-1/hpf (0-1/HPF) Urine Bacteria None seen (None) Urine Mucus 1+ H (Negative) Ur Culture Indicated? Cult not indicated Vol Urine Centrifuged 10ml (spun) SARS-CoV-2 (PCR) Negative (Negative) Imaging Data Chest x-ray: Radiologist's Impression: PROCEDURE: XR CHEST 1V INDICATIONS: confusion TECHNIQUE: One view of the chest was acquired. COMPARISON: CT, CT ANGIO CHEST PE PROTOCOL, 11/29/2023, 21:10. [facility], CR, XR CHEST 1V, 05/08/2024, 17:54. FINDINGS: Surgical changes and devices: None. Lungs and pleura: Unchanged appearance of masslike opacity projecting over the right lower lobe. Mediastinum: Mediastinal contours appear normal. Heart size is enlarged. Bones and chest wall: No suspicious bony lesions. Overlying soft tissues appear unremarkable. IMPRESSION: Unchanged appearance of masslike opacity projecting over the right lower lobe. Otherwise, unremarkable. Dictated by: Marion Rod M.D. on 05/16/2024 at 19:38 CT scan - head: Radiologist's Impression: PROCEDURE: CT HEAD/BRAIN WO CON INDICATIONS: confusion TECHNIQUE: Noncontrast 4.5 mm thick angled axial sections acquired from the foramen magnum to the vertex, with coronal and sagittal reformats. For radiation dose reduction, the following was used: automated exposure control, adjustment of mA and/or kV according to patient size. COMPARISON: [facility], CT, CT HEAD/BRAIN WO CON, 11/29/2023, 17:25. FINDINGS: Image quality: Diagnostic. CSF spaces: Basal cisterns are patent. No extra-axial fluid collections. The ventricles are symmetric in size and shape. Brain: No intracranial bleeds or masses. There is cerebral volume loss for age, with resultant ventricular and sulcal prominence. There are periventricular and deep white matter chronic small vessel ischemic changes. There is intracranial internal carotid artery atherosclerosis. Skull and face: Calvarium and visualized facial bones appear intact, without suspicious lesions. Sinuses: Visualized sinuses and mastoids are clear. IMPRESSION: No acute intracranial pathology. Approved by: Olive Hernandez M.D.,Ph.D. on 05/16/2024 at 23:12 ECG Data Attestation: I personally reviewed and interpreted this ECG as follows: Prior ECG tracings: available for review Interpretation: Normal sinus rhythm rate 66 NH interval 122 QRS 98 QTC 448 T-wave inversion noted in lead 3 and AVF similar to prior MDM Narrative Medical decision making narrative: MDM CC: Confusion Complicating co-morbidities: Advanced age history of stroke Data collected from: Daughter sister [id number] Medical records reviewed: Recent ED visits Differential considered: Infection CVA electrolyte abnormality Exam documented above, pertinent findings include: Awake alert seems to be answering questions okay no focal deficit she ambulates in the ED with a cane Lab Test results independently reviewed as above. Pertinent findings: CBC no leukocytosis or anemia, WBCs 9.1 hemoglobin 13 hematocrit 38.1 platelets 164 CMP no electrolytes no FED[place], sodium 137 potassium 4.0 chloride 105 carbon dioxide 24 BUN 19 creatinine 0.5 Lactate 1.4 procalcitonin 0.051 Troponin negative Bilirubin 0.1, AST 24 ALT 17 lipase 120 Independently reviewed EKG as above sinus rhythm no ischemia similar to prior Imaging studies independently reviewed: Head CT no intracranial hemorrhage, chest x-ray no acute cardiopulmonary process Consultations: None Treatments: None Re-evaluations: Patient up to restroom comfortable Discussion: 88-year-old female presenting today with increased confusion. After talking to family does sound that she has had a gradual decline over the past couple weeks. I see no cause of acute confusion today. She has no signs or symptoms of stroke she has no neurologic deficit she has been ambulatory in the ED. I see no sign of infection she is negative for COVID and a UTI. Long discussion with family about goals. It sounds as though the daughter would like her placed in a facility. I have set expectations it may not happen. However they would like to talk with social work tomorrow. It sounds like they have an order for home health but nothing set up either. No one is quite able to stay with her 01/04 at this time. Patient signed out to Dr. Bradford <Akil Bradford MD - Last Filed: 05/17/24 22:11> Lab Data Labs: Lab Results 05/16/24 05/16/24 05/16/24 Range/Units 15:40 19:49 22:20 WBC 9.1 (4.5-11.0) X10^3/uL RBC 4.14 (4.0-5.2) X10^6/uL Hgb 13.0 (12.0-16.0) g/dL Hct 38.1 (36-46) % MCV 92.1 (80-100) fL MCH 31.3 (26-34) PG MCHC 34.0 (30-36) % RDW 14.0 (11.6-14.8) % Plt Count 164 (150-400) X10^3/uL Neut % (Auto) 62.5 (50-75) % Lymph % (Auto) 26.6 (25-40) % Sanborn % (Auto) 7.8 (3-14) % Eos % (Auto) 2.5 (2-4) % Baso % (Auto) 0.6 (0-2) % Neut # (Auto) 5700 (5523-5162) /uL Lymph # (Auto) 2400 (3341-5389) /uL Sanborn # (Auto) 700 (0-900) /uL Eos # (Auto) 200 (0-450) /uL Baso # (Auto) 100 (0-100) /uL PT 11.5 (9.4-12.5) SECONDS INR 1.0 (0.9-1.3) APTT 31 (25.1-36.5) SECONDS Sodium 137 (137-145) mmol/L Potassium 4.0 (3.4-5.1) mmol/L Chloride 105 (98-107) mmol/L Carbon Dioxide 24 (22-32) mmol/L BUN 19 H (7-17) mg/dL Creatinine 0.51 L (0.52-1.04) mg/dL Estimated GFR > 60 (>60) mL/min BUN/Creatinine Ratio 37.3 H (6-22) Glucose 110 (80-110) mg/dL Lactate 1.4 (0.7-2.1) mmol/L Calcium 9.3 (8.4-10.2) mg/dL Total Bilirubin 1.0 (0.2-1.3) mg/dL AST 24 (14-36) IU/L ALT 17 (<35) IU/L Alkaline Phosphatase 107 (38-126) U/L Total Creatine Kinase 45 (30-135) U/L Troponin I < 0.012 (0.01-0.034) ng/mL Total Protein 7.0 (6.3-8.2) g/dL Albumin 4.0 (3.5-5.0) g/dL Globulin 3.0 (1.7-4.1) g/dL Albumin/Globulin Ratio 1.3 (1.0-2.8) Lipase 120 D (23-300) U/L Procalcitonin 0.051 (<0.5) ng/mL Urine Color Yellow Urine Appearance Clear Urine pH 5.5 (4.5-8.0) Ur Specific Badger 1.025 (1.000-1.035) Urine Protein Negative (Negative) Urine Glucose (UA) Negative (Negative) g/dL Urine Ketones Trace H (NEGATIVE) Urine Occult Blood Negative (Negative) Urine Nitrate Negative (Negative) Urine Bilirubin Negative (NEGATIVE) Urine Urobilinogen 0.2 (0.2) E.U./dL Ur Leukocyte Esterase Negative (NEGATIVE) Urine RBC None seen (0-5/HPF) Urine WBC None seen (0-5/HPF) Ur Squamous Epith Cells 0-1 /hpf (0-5/HPF) Ur Renal Epithelial Cell 0-1/hpf (0-1/HPF) Urine Bacteria None seen (None) Urine Mucus 1+ H (Negative) Ur Culture Indicated? Cult not indicated Vol Urine Centrifuged 10ml (spun) SARS-CoV-2 (PCR) Negative (Negative) MDM Narrative Medical decision making narrative: MDM CC: Confusion Complicating co-morbidities: Advanced age history of stroke Data collected from: Daughter sister [id number] Medical records reviewed: Recent ED visits Differential considered: Infection CVA electrolyte abnormality Exam documented above, pertinent findings include: Awake alert seems to be answering questions okay no focal deficit she ambulates in the ED with a cane Lab Test results independently reviewed as above. Pertinent findings: CBC no leukocytosis or anemia, WBCs 9.1 hemoglobin 13 hematocrit 38.1 platelets 164 CMP no electrolytes no [place], sodium 137 potassium 4.0 chloride 105 carbon dioxide 24 BUN 19 creatinine 0.5 Lactate 1.4 procalcitonin 0.051 Troponin negative Bilirubin 0.1, AST 24 ALT 17 lipase 120 Independently reviewed EKG as above sinus rhythm no ischemia similar to prior Imaging studies independently reviewed: Head CT no intracranial hemorrhage, chest x-ray no acute cardiopulmonary process Consultations: None Treatments: None Re-evaluations: Patient up to restroom comfortable Discussion: 88-year-old female presenting today with increased confusion. After talking to family does sound that she has had a gradual decline over the past couple weeks. I see no cause of acute confusion today. She has no signs or symptoms of stroke she has no neurologic deficit she has been ambulatory in the ED. I see no sign of infection she is negative for COVID and a UTI. Long discussion with family about goals. It sounds as though the daughter would like her placed in a facility. I have set expectations it may not happen. However they would like to talk with social work tomorrow. It sounds like they have an order for home health but nothing set up either. No one is quite able to stay with her 01/04 at this time. Patient signed out to Dr. Bradford 05/17/2024 7:00 a.m.Sanchez. Sign-out from Dr. Dougherty. Awaiting family for social work consultation and disposition planning. 88-year-old female with history of stroke August 2023, felt to have gradual declined by family members, has sister and [id number] Halie Underwood, also daughter in [place], apparently called family members stating ?I am confused? yesterday. Treated for urinary tract infection with a nitrofurantoin last week, urinalysis negative today. Apparently she thought she was here in the emergency department yesterday instead of last week. CT head negative. COVID negative, screening labs unremarkable, walking with a cane here in the emergency department. She does not obviously meet senior care placement criteria, though memory care type placement might be appropriate in the near future. Awaiting consultation with manager social responsibility and family members, anticipate discharge home. Assumed interim care. 1215, INVASIVE MANAGER evaluating 1315, INVASIVE MANAGER reports family will take patient home, Memory Unit or other disposition plan can be pursued as an outpatient, home health referral for assistance in interim. Discharged home with family. Discharge Plan Departure Patient Disposition: Home Clinical Impression: Confusion Activity Restrictions/Additional Instructions: Confusion having called family members yesterday. CT scan of the brain and blood testing workup were negative. Observed overnight. Noted to be able to walk quite well in the department. Not considered to be a candidate for retirement facility at this time. May end up needing memory care placement at some point. client services analyst evaluation, in residence assistance already in place 3 times weekly, home health order for additional home services assistance and evaluation for now. Discharged home with family. Further testing and evaluation as an outpatient for now. Continue current chronic medication regimen for now. Follow up with your regular doctor early this week. Return to this/nearest emergency department for any change worsening symptoms or any concerns prior Prescriptions: No Action clopidogrel 75 mg Tablet 75 mg PO DAILY Qty: 14 0RF aspirin 325 mg Tablet 325 mg PO DAILY nitroglycerin 0.4 mg tablet, sublingual 0.4 mg SL Q5M PRN (Reason: Chest Pain) Patient Comments: Believes last taken years ago atorvastatin [Lipitor] 80 mg tablet 80 mg PO DAILY esomeprazole magnesium [Nexium] 40 mg capsule,delayed release(DR/EC) 40 mg PO DAILY latanoprost [Xalatan] 0.005 % drops 1 drp EYE-BOTH BEDTIME calcium carbonate [Calcium 600] 600 mg calcium (1,500 mg) tablet 600 mg PO DAILY cholecalciferol (vitamin D3) 1,000 unit capsule 2,000 unit PO DAILY ascorbate calcium (vitamin C) 500 mg tablet 500 mg PO DAILY pyridoxine (vitamin B6) [Vitamin B-6] 100 mg tablet 100 mg PO DAILY mecobalamin (vitamin B12) 1,000 mcg tablet,disintegrating 1,000 mcg SL DAILY multivitamin Tablet 1 tab PO DAILY folic acid 400 mcg tablet 0.4 mg PO DAILY Referrals: Michael Carmona MD [Primary Care Provider] - Stand Alone Forms: Patient Portal/API
--- NOTE | 2024-05-16 19:37 | EKG_ITS ---
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
[2024-05-16 19:47] LABS: Add Manual Diff / Slide Review NO; Basophils Absolute Auto 100 /uL (0-100); Basophils Percent Auto 0.6 % (0-2); Eosinophils Absolute Auto 200 /uL (0-450); Eosinophils Percent Auto 2.5 % (2-4); Hematocrit 38.1 % (36-46); Lymphocytes Absolute Auto 2400 /uL (1100-4500); Lymphocytes Percent Auto 26.6 % (25-40); Mean Corpuscular Hemoglobin 31.3 PG (26-34); Mean Corpuscular Volume 92.1 fL (80-100); Monocytes Absolute Auto 700 /uL (0-900); Monocytes Percent Auto 7.8 % (3-14); Neutrophils Absolute Auto 5700 /uL (1500-7000); Neutrophils Percent Auto 62.5 % (50-75); Platelet Count 164 X10^3/uL (150-400); Red Blood Cell Count 4.14 X10^6/uL (4.0-5.2); White Blood Cell Count 9.1 X10^3/uL (4.5-11.0)
[2024-05-16 19:56] LABS: Prothrombin Time 11.5 SECONDS (9.4-12.5)
[2024-05-16 19:59] LABS: Appearance Urine UA CLEAR; Bilirubin Urine UA NEGATIVE (NEGATIVE); Color Urine UA YELLOW; Glucose Urine UA NEGATIVE (Negative); Ketones Urine UA TRACE (NEGATIVE); Leukocyte Esterase Urine UA NEGATIVE (NEGATIVE); Nitrite Urine UA NEGATIVE (Negative); Occult Blood Urine UA NEGATIVE (Negative); Protein Urine UA NEGATIVE (Negative); Specific Gravity Urine UA 1.025 (1.000-1.035); Urobilinogen Urine UA 0.2 E.U./dL (0.2)
[2024-05-16 19:59] LABS: PTT Partial Thromboplastin Tim 31 SECONDS (25.1-36.5)
[2024-05-16 20:00] LABS: pH Urine UA 5.5 (4.5-8.0)
[2024-05-16 20:01] LABS: Alanine Aminotransferase 17 IU/L (<35); Albumin Globulin Ratio 1.3 (1.0-2.8); Alkaline Phosphatase 107 U/L (38-126); Aspartate Aminotransferase 24 IU/L (14-36); BUN Creatinine Ratio 37.3 (6-22); Blood Urea Nitrogen 19 mg/dL (7-17); Calcium 9.3 mg/dL (8.4-10.2); Carbon Dioxide 24 mmol/L (22-32); Chloride 105 mmol/L (98-107); Creatine Kinase 45 U/L (30-135); Estimated Glomerular Filt Rate > 60 mL/min (>60); Glucose 110 mg/dL (80-110); HEMOLYSIS 20 (0-50); Lipase 120 U/L (23-300); Sodium 137 mmol/L (137-145)
[2024-05-16 20:02] LABS: Lactate (Lactic Acid) 1.4 mmol/L (0.7-2.1)
[2024-05-16 20:13] LABS: Troponin I < 0.012 ng/mL (0.01-0.034)
[2024-05-16 20:18] LABS: Procalcitonin 0.051 ng/mL (<0.5)
[2024-05-16 20:28] LABS: Bacteria Urine None Seen; RBC Urine None Seen (0-5/HPF); Urine Volume 10mL (spun); WBC Urine None Seen (0-5/HPF)
[2024-05-16 20:29] LABS: Culture Indicated Urine Cult Not Indicated; Mucus Urine 1+ (Negative); Renal Epithelial Cells Urine 0-1/HPF (0-1/HPF); Squamous Epithelial Cell Urine 0-1 /HPF (0-5/HPF)
--- NOTE | 2024-05-16 22:00 | DI.CT.S_ITS ---
PROCEDURE: CT HEAD/BRAIN WO CON INDICATIONS: confusion TECHNIQUE: Noncontrast 4.5 mm thick angled axial sections acquired from the foramen magnum to the vertex, with coronal and sagittal reformats. For radiation dose reduction, the following was used: automated exposure control, adjustment of mA and/or kV according to patient size. COMPARISON: [facility], CT, CT HEAD/BRAIN WO CON, 11/29/2023, 17:25. FINDINGS: Image quality: Diagnostic. CSF spaces: Basal cisterns are patent. No extra-axial fluid collections. The ventricles are symmetric in size and shape. Brain: No intracranial bleeds or masses. There is cerebral volume loss for age, with resultant ventricular and sulcal prominence. There are periventricular and deep white matter chronic small vessel ischemic changes. There is intracranial internal carotid artery atherosclerosis. Skull and face: Calvarium and visualized facial bones appear intact, without suspicious lesions. Sinuses: Visualized sinuses and mastoids are clear. IMPRESSION: No acute intracranial pathology. Approved by: Olive Hernandez M.D.,Ph.D. on 05/16/2024 at 23:12
[2024-05-16 23:14] LABS: COVID19 -Nasal RAPID Negative (Negative)
--- NOTE | 2024-05-17 01:44 | PC.NURSE ---
Pt taken to in [facility]. Pt is able to stand and walk to toilet. Pt walked to room 25 ft with steady gait and one assist. Warm blankets provided.
[2024-05-17 06:33] VITALS: BP 170/72; PULSE 85; RESP 19; O2SAT 98
[2024-05-17 07:17] VITALS: PULSE 67; O2SAT 95
[2024-05-17 07:19] VITALS: BP 149/67; PULSE 67; RESP 20; O2SAT 94
[2024-05-17 13:42] VITALS: PULSE 75; O2SAT 95
[2024-05-17 13:44] VITALS: BP 140/64; PULSE 74; O2SAT 95
--- NOTE | 2024-05-17 13:44 | CM.SWNOTE ---
ED TOOL MAKER BENCH Note: Pt is a 88yo female, resident of [place], presented to the ED for weakness and confusion. Patient was here for similar presentation on 05/08/2024. Pt lives in a house alone, currently has caregivers from [facility] who help her with ADLs three times a week for 3 hours a day. Reviewed EMR and team rounds for pt?s medical status. ED TOOL MAKER BENCH was consulted to assist with patient's daughter's concerns of returning home alone, possible referral to assisted living facility. ED TOOL MAKER BENCH called pt's daughter/DPOA, Jalyn, who lives in [place]. Per patient's daughter, pt has been declining rapidly with confusion and weakness the past few weeks. Patient daughter hopeful to increase caregiving hours to 7-days a week and more hours a day. Per patient's daughter, she is in the early stages of having patient placed at an assisted living facility. ED TOOL MAKER BENCH referred pt to [facility] ux consultant, Nita Zhou RN, to assist with placement search. ED TOOL MAKER BENCH discussed home health referral with patient daughter to increase more support for patient at home. Patient has a history with [facility] and authorized referral to this agency. ED TOOL MAKER BENCH discussed referral to community fire fighting equipment specialist, patient daughter agreeable to referral. ED TOOL MAKER BENCH entered room and introduced self and role, present is patient and patient's caregiver, Coco. Patient's caregiver spoke at length about patient's safety and plan of care coordination. Patient and caregiver also in agreement for community fire fighting equipment specialist and home health referral while in the process of assisted living placement. Plan: Patient to discharge home with caregiver, follow up with Home health referral, increased caregiving hours and [employer] referral. ED TOOL MAKER BENCH to call on 05/18/2024, during normal business hours to request sooner PCP appointment on patient's behalf. ANALY Calhoun
--- NOTE | 2024-05-18 11:24 | CM.SWNOTE ---
ED MOTORCYCLE ASSEMBLER Follow Up Note: ED MOTORCYCLE ASSEMBLER received email from Ila COX that patient has been accepted into services. ED MOTORCYCLE ASSEMBLER called [facility] and scheduled an appointment with patient's PCP at the earliest availability per family request. Soonest appointment is Saturday, 05/19 at 11:15am. ED MOTORCYCLE ASSEMBLER called pt's POA/daughter, Jalyn, relayed information about PCP appointment. It was reported that patient has a conflicting appointment. ED MOTORCYCLE ASSEMBLER encouraged pt's daughter to coordinate re-scheduling appointment with PCP office and pt's local caregiver. ED MOTORCYCLE ASSEMBLER reviewed acceptance to services by Ila COX and discussed with pt's daughter to anticipate their phone call for scheduling. ED MOTORCYCLE ASSEMBLER also discussed referral to [employer] and that he should be contacting them shortly as well. Patient's daughter discussed other family members who will be more involved in patient's care in the future, daughter requested their contact information be added to patient's chart. These family members include: Ivelisse Bryan (caregiver), Que & Amrita Hua (grandson and [id number]-[id number]). ED MOTORCYCLE ASSEMBLER updated patient chart with their contact information. Plan: Patient and family to coordinate care with PCP, Ila COX, [facility] [employer] [facility] and [employer] while patient's family attempts to coordinate assisted living/nursing home care. ANALY Calhoun
== END 2024-05-17 14:03 | disposition home or self-care (01) ==
PROVIDERS: Emergency Medicine; Emergency Provider Emergency Medicine; PCP Family Medicine
DX: R41.0 Disorientation, unspecified (principal); Z79.01 Long term (current) use of anticoagulants; Z11.52 Encounter for screening for COVID-19
CPT/HCPCS: 36415; 70450; 71045; 80053; 81001; 82550; 83605; 83690; 84145; 84484; 85025; 85610; 85730; 87040; 87635; 93005; 99283; 99284